=== PATIENT | female | born 1960 | race African-American/Black ===

== ENCOUNTER 2018-02-21 01:57 | Inpatient (IN) | END 2018-03-04 16:24 | DRG 291 ==

== ENCOUNTER 2018-03-30 18:57 | Inpatient (IN) | END 2018-04-05 16:50 | DRG 682 ==

== ENCOUNTER 2018-10-06 18:33 | Inpatient (IN) | payer OTHER ==
[~2018-10-06] VITALS: Ht 170.2 cm; Wt 168.1 kg
[~2018-10-06 18:33] MED LIST: non IM
[2018-10-06 19:04] VITALS: PULSE 74
[2018-10-06 19:46] VITALS: BP 124/69; PULSE 80; RESP 17
[2018-10-06 20:00] VITALS: PULSE 78
[2018-10-06 20:03] VITALS: Ht 170.2 cm; Wt 168.1 kg
[2018-10-06] MEDS ORDERED: MULTI PO (21:13)
[2018-10-06] MEDS ORDERED: ASPI-903 PO (21:13)
[2018-10-06] MEDS ORDERED: METO-448 PO (21:13)
[2018-10-06] MEDS ORDERED: ATOR40TA68 PO (21:13)
[2018-10-06] MEDS ORDERED: AMIN30LI PO (21:13)
[2018-10-06] MEDS ORDERED: PANT40TA3 PO (21:13)
[2018-10-06] MEDS ORDERED: POTA8CAP PO (21:13)
[2018-10-06] MEDS ORDERED: COU2 PO (21:13)
[2018-10-06] MEDS ORDERED: FURO40SO PO (21:13)
[2018-10-06] MEDS ORDERED: PARO40TA79 PO (21:28)
[2018-10-06] MEDS ORDERED: HYDR-4011 PO (21:28)
[2018-10-06] MEDS ORDERED: UDMYL PO (21:28)
[2018-10-06] MEDS ORDERED: ACET-2047 PO (21:28)
[2018-10-06] MEDS ORDERED: NITR0.4T32 SL (21:28)
[2018-10-06] MEDS ORDERED: BISA10SU75 PR (21:28)
[2018-10-06] MEDS ORDERED: RISP1TAB3 PO (21:28)
[2018-10-06] MEDS ORDERED: ONDANSETRON 4 MG INJ IV PRN (22:00)
[2018-10-06] MEDS ORDERED: NITROGLYCERIN (SL) 0.4 MG TAB SL PRN (22:30)
[2018-10-06] MEDS ORDERED: HYDROCODONE/APAP (5/325) TAB PO PRN (22:30)
[2018-10-06] MEDS ORDERED: BISACODYL 10 MG SUPP PR PRN (22:30)
[2018-10-06] MEDS: METOPROLOL 25 MG TAB PO SCH (23:28)
[2018-10-06] MEDS: POTASSIUM CHLORIDE (SR) 10 MEQ TAB PO SCH (23:28)
[2018-10-06] MEDS: RISPERIDONE 1 MG TAB PO SCH (23:28)
[2018-10-06 23:29] VITALS: BP 105/70; PULSE 130; RESP 19
[2018-10-06] MEDS: FUROSEMIDE 40 MG INJ IV SCH (23:29)
[2018-10-07] VITALS (11 sets, daily range): BP systolic 95–108; BP diastolic 50–69; PULSE 81–137; RESP 18–20
[2018-10-07] MEDS ORDERED: PANTOPRAZOLE 40 MG INJ IV SCH (06:00)
[2018-10-07] MEDS: FUROSEMIDE 40 MG INJ IV SCH ×2 (09:02→17:50)
[2018-10-07] MEDS: METOPROLOL 25 MG TAB PO SCH ×2 (09:03→21:00)
[2018-10-07] MEDS: MULTIVITAMINS THERAPEUTIC TAB PO SCH (09:03)
[2018-10-07] MEDS: RISPERIDONE 1 MG TAB PO SCH ×2 (09:03→21:22)
[2018-10-07] MEDS: ASPIRIN 81 MG TAB PO SCH (09:03)
[2018-10-07] MEDS: POTASSIUM CHLORIDE (SR) 10 MEQ TAB PO SCH ×2 (09:03→21:22)
[2018-10-07] MEDS: NICOTINE (21 MG/24 HR) PATCH TRANSDERM SCH (09:04)
--- NOTE | 2018-10-07 15:33 | HP ---
Date/Time of Note Date/Time of Note DATE: 10/07/18 TIME: 15:33 Assessment/Plan VTE Prophylaxis Risk score (from [facility] [place]0 risk: 6 SCD applied (from [facility] [place]): No SCD contraindicated: DVT Pharmacological prophylaxis: warfarin tx Lines/Catheters IV Catheter Type (from [facility]): [place] Urinary Cath still in place: Yes Reason Cath still needed: urinary retention Assessment/Plan Hospital Course 1. UTI with CKD, creatinine was 2,March , now 1.26 2. CHF, diastolic. 3. Possible left lower extremity DVT, incomplete data 4. History of paroxysmal atrial fibrillation, on Coumadin. 5. History of hypertension; however, currently borderline normotensive. 6. History of urinary incontinence, has song catheter now. 7. Chronic obstructive pulmonary disease. 8. Hyperlipidemia. 9. Morbid obesity. 10. Gastroesophageal reflux disease. 11. Hx of schizoaffective disorder. 12. Hyponatremia 13. Hx of polysubstance abuse 14. Thrombocytopenia 15. hx of cholecystectomy. Assessment/Plan 1. admitted to telemetry unit. 2. diuresis 3. airbed. 4. Gastrointestinal prophylaxis Protonix and deep venous thrombosis prophylaxis with Coumadin 2 mg po daily. 5. Fall precaution - Dr Churchill, cardiology - lower extremities -Dr Sousa pulmonology. Result Diagram: 10/07/18 0642 10/07/18 0642 Results 24hrs Laboratory Tests Test 10/07/18 06:42 10/07/18 07:25 White Blood Count 6.1 # Red Blood Count 4.55 # Hemoglobin 11.7 #L Hematocrit 37.4 # Mean Corpuscular Volume 82.2 Mean Corpuscular Hemoglobin 25.7 L Mean Corpuscular Hemoglobin Concent 31.3 L Red Cell Distribution Width 16.0 H Platelet Count 123 L Mean Platelet Volume 9.0 Immature Granulocytes % 0.300 Neutrophils % 56.2 Lymphocytes % 24.1 Monocytes % 18.1 H Eosinophils % 0.8 Basophils % 0.5 Nucleated Red Blood Cells % 1.8 H Immature Granulocytes # 0.020 Neutrophils # 3.5 Lymphocytes # 1.5 Monocytes # 1.1 H Eosinophils # 0.1 Basophils # 0.0 Nucleated Red Blood Cells # 0.1 H Prothrombin Time 20.7 H Prothrombin Time Ratio 1.6 INR International Normalized Ratio 1.77 Sodium Level 139 Potassium Level 4.2 Chloride Level 97 Carbon Dioxide Level 33 H Anion Gap 9 Blood Urea Nitrogen 38 H Creatinine 1.26 H Est Glomerular Filtrat Rate mL/min 53 L Glucose Level 98 Calcium Level 9.7 Total Bilirubin 0.4 Direct Bilirubin 0.00 Indirect Bilirubin 0.4 Aspartate Amino Transf (AST/SGOT) 28 Alanine Aminotransferase (ALT/SGPT) 15 Alkaline Phosphatase 125 H Total Protein 7.8 Albumin 3.7 Globulin 4.10 H Albumin/Globulin Ratio 0.90 Urine Color YELLOW Urine Clarity CLEAR Urine pH 6.0 Urine Specific [place] 1.009 Urine Ketones NEGATIVE Urine Nitrite NEGATIVE Urine Bilirubin NEGATIVE Urine Urobilinogen NEGATIVE Urine Leukocyte Esterase 1+ H Urine Microscopic RBC 36 H Urine Microscopic WBC 6 H Urine Hemoglobin 2+ H Urine Glucose NEGATIVE Urine Total Protein NEGATIVE HPI/ROS Admit Date/Time Admit Date/Time Oct 06, 2018 at 18:33 Hx of Present Illness This is a 57-year-old, morbidly obese woman with a past medical history of hypertension, hyperlipidemia, history of CHF, history of chronic atrial fibrillation, depression, schizoaffective disorder, COPD, history of UTI, primary pulmonary hypertension, right-sided heart failure, was sent in from [facility] for CHF exacerbation after the patient was having worsening lower extremities edema and leg pain, L> R. According to the patient, she has pain 4/10 right know and this pain is chronic. During her stay in [facility] she was in ICU department for hemodynamic monitoring of diuresis and was d/c narcotics. She was in mixed hypercapnic and hypoxic respiratory failure, sometimes was on BIPAP. She was found UTI and was on Bactrim BID. Her swelling on the legs has been getting worse and eventually progressing to the abdomen, LE Doppler showed possible DVT (unable to find a data), D dimers are elevated. Pt is on Coumadin 2 mg po daily. Medical chart from [facility] reviewed, she was there for 3 days. ROS Musculoskeletal: bone/joint pain PMH/Family/Social Past Medical History Medical History: congestive heart failure, hypertension Medications Current Medications Nicotine (Nicoderm 21 Mg/ 24hr) 1 patch DAILY TRANSDERM Last administered on 10/07/18at 09:04; Admin Dose 1 PATCH; Start 10/07/18 at 09:00 Ondansetron HCl (Zofran Inj) 4 mg Q6H PRN IV NAUSEA AND/OR VOMITING; Start 10/06/18 at 22:00 Pantoprazole (Protonix Iv) 40 mg DAILY@06 IV Last administered on 10/07/18at 05:56; Admin Dose 40 MG; Start 10/07/18 at 06:00 Acetaminophen (Tylenol Tab) 650 mg Q6H PRN PO MILD PAIN(1-3)OR ELEVATED TEMP; Start 10/06/18 at 22:00 Furosemide (Lasix) 40 mg DAILY IV Last administered on 10/07/18at 09:02; Admin Dose 40 MG; Start 10/06/18 at 22:30 Aspirin (Aspirin) 81 mg DAILY PO Last administered on 10/07/18 09:03; Admin Dose 81 MG; Start 10/07/18 at 09:00 Atorvastatin Calcium (Lipitor) 40 mg QHS PO ; Start 10/07/18 at 21:00 Bisacodyl (Dulcolax Supp) 10 mg DAILY PRN DC CONSTIPATION; Start 10/06/18 at 22:30 Al Hydrox/Mg Hydrox/Simethicone (Mag-Al Plus) 20 ml Q6H PRN PO GASTROINTESTINAL UPSET; Start 10/06/18 at 22:30 Metoprolol Tartrate (Lopressor) 25 mg BID PO Last administered on 10/07/18at 09:03; Admin Dose 25 MG; Start 10/06/18 at 22:30 Multivitamins Therapeutic (Theragran) 1 tab DAILY PO Last administered on 10/07/18at 09:03; Admin Dose 1 TAB; Start 10/07/18 at 09:00 Paroxetine HCl (Paxil) 40 mg HS PO ; Start 10/07/18 at 21:00 Potassium Chloride (Klor-Con 10) 10 meq BID PO Last administered on 10/07/18at 09:03; Admin Dose 10 MEQ; Start 10/06/18 at 22:30 Risperidone (Risperdal) 1 mg BID PO Last administered on 10/07/18 09:03; Admin Dose 1 MG; Start 10/06/18 at 22:30 Warfarin Sodium (Coumadin) 2 mg DAILY@1700 PO ; Start 10/07/18 at 17:00 Acetaminophen/ Hydrocodone Bitart ([place] (5/325)) 1 tab BID PRN PO MODERATE PAIN LEVEL 4-6; Start 10/06/18 at 22:30 Nitroglycerin (Nitroglycerin (Sl Tab) 0.4 Mg) 1 tab Q5M PRN SL ANGINA; Start 10/06/18 at 22:30 Coded Allergies: cefazolin (Verified Allergy, Unknown, 10/07/18) ceftriaxone (Verified Allergy, Unknown, 02/20/18) Past Surgical History Past Surgical Hx: cholecystectomy, other (right ankle ORIF, C section) Family History Significant Family History: no pertinent family hx Social History Alcohol Use: none Smoking Status: Current every day smoker Drug Use: none Exam/Review of Systems Vital Signs Vitals Vital Signs Date Temp Pulse Resp B/P (MAP) Pulse Ox O2 O2 Flow FiO2 Time Delivery Rate 10/07/18 98.5 83 19 105/57 96 15:27 (73) 10/07/18 Nasal 3.0 08:00 Cannula Intake and Output 10/06/18 10/06/18 10/07/18 1515:00 23:00 07:00 IntakeIntake Total 700 ml OutputOutput Total 2150 ml BalanceBalance -1450 ml Exam Constitutional: alert, oriented Neck: supple Respiratory: clear to auscultation Cardiovascular: regular rate and rhythm Extremities: edema (left more than right) ARABELLA CABELLO Oct 07, 2018 15:33
[2018-10-07] MEDS: SILDENAFIL 20 MG TAB PO SCH (16:45)
[2018-10-07] MEDS: WARFARIN 2 MG TAB PO SCH (16:45)
[2018-10-07] MEDS: HYDROCODONE/APAP (5/325) TAB PO PRN (16:47)
--- NOTE | 2018-10-07 19:54 | CONS ---
Assessment/Plan Assessment/Plan Assessment/Plan (Daily) 57 yr old with history of CTEPH and resultant right heart failure, AF on Coumadin, presumed COPD, history of polysubstance abuse, and morbid obesity brought in from SNF for bilateral leg pain x 1 month, now transferred from [facility] for remainder of care. 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 Acute decompensated heart failure with volume overload 3. LUMA likely 2/2 above--improced 4. History of JEANNINE not on PAP therapy 5. Afib RECS: -Agree with continued diuresis with IV Lasix to achieve net negative 1-1.5 L overnight -Would consider pursuing RHC to evaluate PA pressures and to obtain other prognostic parameters such as CI/PVR -For now would continue BIPAP 15/8 qhs. -Smoking cessation counseling -Would initiate riogicoat for treatment of CTEPH after RHC. Consultation Date/Type/Reason Admit Date/Time Oct 06, 2018 at 18:33 Date of Consultation: Oct 07, 2018 Type of Consult Pulmonary Reason for Consultation Management of RHF Date/Time of Note DATE: 10/07/18 TIME: 19:46 Hx of Present Illness In brief this is a 57-year-old female well known to me from [facility] with history of CTEPH and resultant right heart failure, AF on Coumadin, presumed COPD, history of polysubstance abuse, and morbid obesity brought in from SNF for bilateral leg pain x 1 month. She does not use inhalers and is currently still smoking. She notes increase in cough (with pink sputum), weight gain, SOB, and possible fevers with sick contacts. Upon arrival to the ER patient AF BP 97/66, she was hypoxic/somnolent with CO2 retention on VBG and was placed on 8 LPM face mask and given a total of 60 mg IV lasix with minimal urine outpt (and rise in Cr) and is currently falling asleep during our interview. She had imaging with CXR showing cardiomegaly and increased with congestion with LE dopplers showing possible DVT. In terms of her CTEPH, she had TTE in 08/2017 showing PASP 113 mmHg and has not been on PH specific therapy. She has had multiple hospitalizations for similar reasons, but she is transferred out prior to completing workup or undergoing RHC/etc. Given severity of PH with concomitant renal failure and low UOP/BP, she was transferred to the ICU for aggressive optimization with Lasix and close monitoring with BIPAP support for suspected decompensated RHF. She was diuresed with lasix and is currently on the floor. Patient feels improved in terms of her respiratory status and LE swelling but feels that she still has a lot of swelli ng when compared to baseline. She was transferred to [facility] for further care. Constitutional: no complaints Eyes: no complaints ENT: no complaints Respiratory: shortness of breath Cardiovascular: orthopenea Gastrointestinal: no complaints Genitourinary: no complaints Musculoskeletal: restricted range of motion Skin: no complaints Neurologic: no complaints Endocrine: no complaints Lymphatic: no complaints Past Medical History CTEPH Medical History: congestive heart failure, hypertension Home Meds Reported Medications Nitroglycerin* (Nitroglycerin* SL) 0.4 Mg Tab.subl, 0.4 MG SL Q5MIN PRN for CHEST PAIN, BOTTLE 10/06/18 Magaldrate/Simethicone* (Mag-Al Plus Suspension*) 30 Ml Oral.susp, 20 ML PO Q6H PRN for GASTROINTESTINAL UPSET, ML 10/06/18 Bisacodyl* (Bisacodyl*) 10 Mg Supp, 10 MG CO DAILY PRN for CONSTIPATION, SUPP 10/06/18 Acetaminophen* (Acetaminophen*) 650 Mg Tablet, 650 MG PO Q4 PRN for PAIN AND OR ELEVATED TEMP, #30 TAB 10/06/18 Hydrocodone/Acetaminophen ([place] 5-325 Tablet) 1 Each Tablet, 1 EACH PO BID PRN for PAIN, TAB 10/06/18 Risperidone* (Risperidone*) 1 Mg Tablet, 1 MG PO BID, TAB 10/06/18 Paroxetine Hcl* (Paroxetine*) 40 Mg Tablet, 40 MG PO HS, TAB 10/06/18 Pantoprazole* (Protonix*) 40 Mg Tablet.dr, 40 MG PO DAILY, TAB 10/06/18 Amino Acids/Protein Hydrolys (PRO-STAT LIQUID) 30 Ml Liquid.pkt, 30 ML PO 10/06/18 Metoprolol Tartrate* (Lopressor*) 25 Mg Tab, 25 MG PO BID, #60 TAB 10/06/18 Multivitamins* (Theragran*) 1 Tab Tab, 1 TAB PO DAILY, TAB 10/06/18 Furosemide* (Furosemide*) 40 Mg/5 Ml Solution, 60 MG PO BID, #150 ML 10/06/18 Potassium Chloride* (Potassium Chloride*) 8 Meq Capsule.er, 10 MEQ PO BID, CAP 10/06/18 Warfarin Sod (Coumadin) 2 Mg Tab, 2 MG PO DAILY, TAB 10/06/18 Aspirin* (Aspirin* Chew) 81 Mg Tab.chew, 81 MG PO DAILY, TAB.CHEW 10/06/18 Atorvastatin* (Atorvastatin*) 40 Mg Tablet, 40 MG PO QHS, #30 TAB 10/06/18 [non] No Conflict Check, 200 MG IM Q 2 WEEKS 04/01/18 Medications Current Medications Nicotine (Nicoderm 21 Mg/ 24hr) 1 patch DAILY TRANSDERM Last administered on 10/07/18at 09:04; Admin Dose 1 PATCH; Start 10/07/18 at 09:00 Ondansetron HCl (Zofran Inj) 4 mg Q6H PRN IV NAUSEA AND/OR VOMITING; Start 10/06/18 at 22:00 Acetaminophen (Tylenol Tab) 650 mg Q6H PRN PO MILD PAIN(1-3)OR ELEVATED TEMP; Start 10/06/18 at 22:00 Aspirin (Aspirin) 81 mg DAILY PO Last administered on 10/07/18at 09:03; Admin Dose 81 MG; Start 10/07/18 at 09:00 Atorvastatin Calcium (Lipitor) 40 mg QHS PO ; Start 10/07/18 at 21:00 Bisacodyl (Dulcolax Supp) 10 mg DAILY PRN CO CONSTIPATION; Start 10/06/18 at 22:30 Al Hydrox/Mg Hydrox/Simethicone (Mag-Al Plus) 20 ml Q6H PRN PO GASTROINTESTINAL UPSET; Start 10/06/18 at 22:30 Metoprolol Tartrate (Lopressor) 25 mg BID PO Last administered on 10/07/18at 09:03; Admin Dose 25 MG; Start 10/06/18 at 22:30 Multivitamins Therapeutic (Theragran) 1 tab DAILY PO Last administered on 10/07/18at 09:03; Admin Dose 1 TAB; Start 10/07/18 at 09:00 Paroxetine HCl (Paxil) 40 mg HS PO ; Start 10/07/18 at 21:00 Potassium Chloride (Klor-Con 10) 10 meq BID PO Last administered on 10/07/18 09:03; Admin Dose 10 MEQ; Start 10/06/18 at 22:30 Risperidone (Risperdal) 1 mg BID PO Last administered on 10/07/18 09:03; Admin Dose 1 MG; Start 10/06/18 at 22:30 Warfarin Sodium (Coumadin) 2 mg DAILY@1700 PO Last administered on 10/07/18 16:45; Admin Dose 2 MG; Start 10/07/18 at 17:00 Nitroglycerin (Nitroglycerin (Sl Tab) 0.4 Mg) 1 tab Q5M PRN SL ANGINA; Start 10/06/18 at 22:30 Acetaminophen/ Hydrocodone Bitart ([place] (5/325)) 1 tab Q6H PRN PO MODERATE PAIN LEVEL 4-6 Last administered on 10/07/18 16:47; Admin Dose 1 TAB; Start 10/07/18 at 16:30 Pantoprazole (Protonix Tab) 40 mg DAILY@06 PO ; Start 10/08/18 at 06:00 Furosemide (Lasix) 40 mg BID DIURETICS IV Last administered on 10/07/18 17:50; Admin Dose 40 MG; Start 10/07/18 at 18:00 Sildenafil Citrate (Revatio) 20 mg DAILY PO Last administered on 10/07/18 16:45; Admin Dose 20 MG; Start 10/07/18 at 17:00 Allergies: Coded Allergies: cefazolin (Verified Allergy, Unknown, 10/07/18) ceftriaxone (Verified Allergy, Unknown, 02/20/18) Past Surgical History Past Surgical Hx: cholecystectomy, other (right ankle ORIF, C section) Social History Alcohol Use: none Smoking Status: Current every day smoker Drug Use: none Exam/Review of Systems Exam Vitals Vital Signs Date Temp Pulse Resp B/P (MAP) Pulse Ox O2 O2 Flow FiO2 Time Delivery Rate 10/07/18 3.0 17:45 10/07/18 81 16:11 10/07/18 98.5 19 105/57 96 15:27 (73) 10/07/18 Nasal 08:00 Cannula Intake and Output 10/06/18 10/06/18 10/07/18 1515:00 23:00 07:00 IntakeIntake Total 700 ml OutputOutput Total 2150 ml BalanceBalance -1450 ml Exam GEN: A&O X 3, NAD HEENT: MMM, no LAD CV: distant heart sounds noted; irreg irreg, increased P2 Resp: distant breath sounds noted Abd: Soft NTND, no HSM Ext: +pitting edema in the bilateral lower extremities Neuro: grossly nonfocal Results Result Diagram: 10/07/18 0642 10/07/18 0642 Results 24hrs Laboratory Tests Test 10/07/18 06:42 10/07/18 07:25 White Blood Count 6.1 # Red Blood Count 4.55 # Hemoglobin 11.7 #L Hematocrit 37.4 # Mean Corpuscular Volume 82.2 Mean Corpuscular Hemoglobin 25.7 L Mean Corpuscular Hemoglobin Concent 31.3 L Red Cell Distribution Width 16.0 H Platelet Count 123 L Mean Platelet Volume 9.0 Immature Granulocytes % 0.300 Neutrophils % 56.2 Lymphocytes % 24.1 Monocytes % 18.1 H Eosinophils % 0.8 Basophils % 0.5 Nucleated Red Blood Cells % 1.8 H Immature Granulocytes # 0.020 Neutrophils # 3.5 Lymphocytes # 1.5 Monocytes # 1.1 H Eosinophils # 0.1 Basophils # 0.0 Nucleated Red Blood Cells # 0.1 H Prothrombin Time 20.7 H Prothrombin Time Ratio 1.6 INR International Normalized Ratio 1.77 Sodium Level 139 Potassium Level 4.2 Chloride Level 97 Carbon Dioxide Level 33 H Anion Gap 9 Blood Urea Nitrogen 38 H Creatinine 1.26 H Est Glomerular Filtrat Rate mL/min 53 L Glucose Level 98 Calcium Level 9.7 Total Bilirubin 0.4 Direct Bilirubin 0.00 Indirect Bilirubin 0.4 Aspartate Amino Transf (AST/SGOT) 28 Alanine Aminotransferase (ALT/SGPT) 15 Alkaline Phosphatase 125 H Total Protein 7.8 Albumin 3.7 Globulin 4.10 H Albumin/Globulin Ratio 0.90 Urine Color YELLOW Urine Clarity CLEAR Urine pH 6.0 Urine Specific [place] 1.009 Urine Ketones NEGATIVE Urine Nitrite NEGATIVE Urine Bilirubin NEGATIVE Urine Urobilinogen NEGATIVE Urine Leukocyte Esterase 1+ H Urine Microscopic RBC 36 H Urine Microscopic WBC 6 H Urine Hemoglobin 2+ H Urine Glucose NEGATIVE Urine Total Protein NEGATIVE Medications Medication Current Medications Nicotine (Nicoderm 21 Mg/ 24hr) 1 patch DAILY TRANSDERM Last administered on 10/07/18at 09:04; Admin Dose 1 PATCH; Start 10/07/18 at 09:00 Ondansetron HCl (Zofran Inj) 4 mg Q6H PRN IV NAUSEA AND/OR VOMITING; Start 10/06/18 at 22:00 Acetaminophen (Tylenol Tab) 650 mg Q6H PRN PO MILD PAIN(1-3)OR ELEVATED TEMP; Start 10/06/18 at 22:00 Aspirin (Aspirin) 81 mg DAILY PO Last administered on 10/07/18 09:03; Admin Dose 81 MG; Start 10/07/18 at 09:00 Atorvastatin Calcium (Lipitor) 40 mg QHS PO ; Start 10/07/18 at 21:00 Bisacodyl (Dulcolax Supp) 10 mg DAILY PRN CO CONSTIPATION; Start 10/06/18 at 22:30 Al Hydrox/Mg Hydrox/Simethicone (Mag-Al Plus) 20 ml Q6H PRN PO GASTROINTESTINAL UPSET; Start 10/06/18 at 22:30 Metoprolol Tartrate (Lopressor) 25 mg BID PO Last administered on 10/07/18 09:03; Admin Dose 25 MG; Start 10/06/18 at 22:30 Multivitamins Therapeutic (Theragran) 1 tab DAILY PO Last administered on 10/07/18 09:03; Admin Dose 1 TAB; Start 10/07/18 at 09:00 Paroxetine HCl (Paxil) 40 mg HS PO ; Start 10/07/18 at 21:00 Potassium Chloride (Klor-Con 10) 10 meq BID PO Last administered on 10/07/18 09:03; Admin Dose 10 MEQ; Start 10/06/18 at 22:30 Risperidone (Risperdal) 1 mg BID PO Last administered on 10/07/18 09:03; Admin Dose 1 MG; Start 10/06/18 at 22:30 Warfarin Sodium (Coumadin) 2 mg DAILY@1700 PO Last administered on 10/07/18 16:45; Admin Dose 2 MG; Start 10/07/18 at 17:00 Nitroglycerin (Nitroglycerin (Sl Tab) 0.4 Mg) 1 tab Q5M PRN SL ANGINA; Start 10/06/18 at 22:30 Acetaminophen/ Hydrocodone Bitart ([place] (5/325)) 1 tab Q6H PRN PO MODERATE P AIN LEVEL 4-6 Last administered on 10/07/18at 16:47; Admin Dose 1 TAB; Start 10/07/18 at 16:30 Pantoprazole (Protonix Tab) 40 mg DAILY@06 PO ; Start 10/08/18 at 06:00 Furosemide (Lasix) 40 mg BID DIURETICS IV Last administered on 10/07/18at 17:50; Admin Dose 40 MG; Start 10/07/18 at 18:00 Sildenafil Citrate (Revatio) 20 mg DAILY PO Last administered on 10/07/18at 16:45; Admin Dose 20 MG; Start 10/07/18 at 17:00 ELIAS CHAVIS MD Oct 07, 2018 19:54
[2018-10-07] MEDS: PAROXETINE 20 MG TAB PO SCH (21:22)
[2018-10-07] MEDS: ATORVASTATIN 40 MG TAB PO SCH (21:22)
[2018-10-08] VITALS (11 sets, daily range): BP systolic 97–113; BP diastolic 51–59; PULSE 81–96; RESP 16–20
[2018-10-08] MEDS: FUROSEMIDE 40 MG INJ IV SCH ×2 (05:55→17:34)
[2018-10-08] MEDS: PANTOPRAZOLE (EC) 40 MG TAB PO SCH (05:55)
[2018-10-08] MEDS: HYDROCODONE/APAP (5/325) TAB PO PRN (06:05)
[2018-10-08] MEDS: NICOTINE (21 MG/24 HR) PATCH TRANSDERM SCH (10:08)
[2018-10-08] MEDS: SILDENAFIL 20 MG TAB PO SCH (10:11)
[2018-10-08] MEDS: MULTIVITAMINS THERAPEUTIC TAB PO SCH (10:12)
[2018-10-08] MEDS: METOPROLOL 25 MG TAB PO SCH ×2 (10:12→20:56)
[2018-10-08] MEDS: POTASSIUM CHLORIDE (SR) 10 MEQ TAB PO SCH ×2 (10:12→20:55)
[2018-10-08] MEDS: RISPERIDONE 1 MG TAB PO SCH ×2 (10:12→20:56)
[2018-10-08] MEDS: ASPIRIN 81 MG TAB PO SCH (10:12)
--- NOTE | 2018-10-08 11:16 | PN ---
Date/Time of Note Date/Time of Note DATE: 10/08/18 TIME: 11:15 Assessment/Plan VTE Prophylaxis Risk score (from Ns)>0 risk: 6 SCD applied (from [facility] [place] No SCD contraindicated: DVT Pharmacological prophylaxis: warfarin tx Lines/Catheters IV Catheter Type (from [facility]): [place] Urinary Cath still in place: Yes Reason Cath still needed: urinary retention Assessment/Plan Hospital Course 1. UTI with CKD, creatinine was 2,March , now 1.26 2. CHF, diastolic. 3. Possible left lower extremity DVT, US showed: very limited study. The left leg veins cannot be seen. No gross sonographic evidence for deep venous thrombosis in the right leg. 4. History of paroxysmal atrial fibrillation, on Coumadin, not theraputic. 5. History of hypertension; however, currently borderline normotensive. 6. History of urinary incontinence, has song catheter now. 7. Chronic obstructive pulmonary disease. 8. Hyperlipidemia. 9. Morbid obesity. 10. Gastroesophageal reflux disease. 11. Hx of schizoaffective disorder. 12. Hyponatremia 13. Hx of polysubstance abuse 14. Thrombocytopenia 15. hx of cholecystectomy. Assessment/Plan - telemetry unit. -coumadin 5 mg po one today -artificial tears for eyes -c/w same diuresis -. airbed. -. Gastrointestinal prophylaxis Protonix and deep venous thrombosis prophylaxis with Coumadin 2 mg po daily. - Fall precaution - Dr Churchill, cardiology -US lower extremities done, " Very limited study. The left leg veins cannot be seen. No gross sonographic evidence for deep venous thrombosis in the right leg." -Dr Sousa pulmonology is appreciated. Result Diagram: 10/08/18 0545 10/08/18 0545 Results 24hrs Laboratory Tests Test 10/08/18 05:45 10/08/18 06:00 White Blood Count 5.2 Red Blood Count 4.60 Hemoglobin 11.8 L Hematocrit 37.3 Mean Corpuscular Volume 81.1 L Mean Corpuscular Hemoglobin 25.7 L Mean Corpuscular Hemoglobin Concent 31.6 L Red Cell Distribution Width 15.9 H Platelet Count 128 L Mean Platelet Volume 9.8 Immature Granulocytes % 0.400 Neutrophils % 49.1 Lymphocytes % 25.7 Monocytes % 21.1 H Eosinophils % 3.1 Basophils % 0.6 Nucleated Red Blood Cells % 0.4 H Immature Granulocytes # 0.020 Neutrophils # 2.6 Lymphocytes # 1.3 Monocytes # 1.1 H Eosinophils # 0.2 Basophils # 0.0 Nucleated Red Blood Cells # 0.0 Prothrombin Time 19.5 H Prothrombin Time Ratio 1.5 INR International Normalized Ratio 1.64 Sodium Level 138 Potassium Level 4.0 Chloride Level 96 L Carbon Dioxide Level 34 H Anion Gap 8 Blood Urea Nitrogen 37 H Creatinine 1.19 H Est Glomerular Filtrat Rate mL/min 56 L Glucose Level 86 Calcium Level 9.5 B-Type Natriuretic Peptide 1610 H Blood Gas Specimen Source Blood arterial Arterial Blood Date Drawn 10/08/2018 6:00:32 AM Arterial Blood pH (Temp corrected) 7.470 H Arterial Blood pCO2 (Temp correct) 48.2 H Arterial Blood pO2 (Temp corrected) 44.3 *L Arterial Blood HCO3 35.3 H Arterial Blood Base Excess 9.1 H Arterial Blood Oxygen Saturation 87.8 L Irch Test N/A Arterial Blood Gas Puncture Site Right Radial Arterial Blood Carboxyhemoglobin 0.9 Arterial Blood Methemoglobin 0.1 Blood Gas A-a O2 Differential 93.1 H Oxyhemoglobin Percent 86.9 L Blood Gas Temperature 34.0 Blood Gas Actual Respiration Rate 20 Blood Gas Modality NASAL CANNULA FiO2 27.0 Blood Gas Critical Value Read Back Rayna COONEY Blood Gas Notified Whom [facility] Blood Gas Notified Time 10/08/2018 6:09:58 AM Subjective 24 Hr Interval Summary ENT: other (eye itchiness 3-4 days) Musculoskeletal: restricted range of motion, swelling (lower extemities) Exam/Review of Systems Exam Vitals Vital Signs Date Temp Pulse Resp B/P (MAP) Pulse Ox O2 O2 Flow FiO2 Time Delivery Rate 10/08/18 95 08:14 10/08/18 98.0 18 98/59 (72) 92 07:46 10/08/18 2.0 05:04 10/08/18 40 00:20 10/07/18 Nasal 20:00 Cannula Intake and Output 10/07/18 10/07/18 10/08/18 1515:00 23:00 07:00 IntakeIntake Total 900 ml 300 ml OutputOutput Total 3100 ml 2500 ml BalanceBalance -2200 ml -2200 ml Constitutional: alert, oriented Head: normocephalic Eyes: nl conjunctiva, nl lids ENMT: nl external ears & nose Respiratory: clear to auscultation Cardiovascular: regular rate and rhythm Extremities: edema Results Results 24hrs Laboratory Tests Test 10/08/18 05:45 10/08/18 06:00 White Blood Count 5.2 Red Blood Count 4.60 Hemoglobin 11.8 L Hematocrit 37.3 Mean Corpuscular Volume 81.1 L Mean Corpuscular Hemoglobin 25.7 L Mean Corpuscular Hemoglobin Concent 31.6 L Red Cell Distribution Width 15.9 H Platelet Count 128 L Mean Platelet Volume 9.8 Immature Granulocytes % 0.400 Neutrophils % 49.1 Lymphocytes % 25.7 Monocytes % 21.1 H Eosinophils % 3.1 Basophils % 0.6 Nucleated Red Blood Cells % 0.4 H Immature Granulocytes # 0.020 Neutrophils # 2.6 Lymphocytes # 1.3 Monocytes # 1.1 H Eosinophils # 0.2 Basophils # 0.0 Nucleated Red Blood Cells # 0.0 Prothrombin Time 19.5 H Prothrombin Time Ratio 1.5 INR International Normalized Ratio 1.64 Sodium Level 138 Potassium Level 4.0 Chloride Level 96 L Carbon Dioxide Level 34 H Anion Gap 8 Blood Urea Nitrogen 37 H Creatinine 1.19 H Est Glomerular Filtrat Rate mL/min 56 L Glucose Level 86 Calcium Level 9.5 B-Type Natriuretic Peptide 1610 H Blood Gas Specimen Source Blood arterial Arterial Blood Date Drawn 10/08/2018 6:00:32 AM Arterial Blood pH (Temp corrected) 7.470 H Arterial Blood pCO2 (Temp correct) 48.2 H Arterial Blood pO2 (Temp corrected) 44.3 *L Arterial Blood HCO3 35.3 H Arterial Blood Base Excess 9.1 H Arterial Blood Oxygen Saturation 87.8 L Rich Test N/A Arterial Blood Gas Puncture Site Right Radial Arterial Blood Carboxyhemoglobin 0.9 Arterial Blood Methemoglobin 0.1 Blood Gas A-a O2 Differential 93.1 H Oxyhemoglobin Percent 86.9 L Blood Gas Temperature 34.0 Blood Gas Actual Respiration Rate 20 Blood Gas Modality NASAL CANNULA FiO2 27.0 Blood Gas Critical Value Read Back Rayna COONEY Blood Gas Notified Whom [facility] Blood Gas Notified Time 10/08/2018 6:09:58 AM Medications Medication Current Medications Nicotine (Nicoderm 21 Mg/ 24hr) 1 patch DAILY TRANSDERM Last administered on 10/08/18at 10:08; Admin Dose 1 PATCH; Start 10/07/18 at 09:00 Ondansetron HCl (Zofran Inj) 4 mg Q6H PRN IV NAUSEA AND/OR VOMITING; Start 10/06/18 at 22:00 Acetaminophen (Tylenol Tab) 650 mg Q6H PRN PO MILD PAIN(1-3)OR ELEVATED TEMP; Start 10/06/18 at 22:00 Aspirin (Aspirin) 81 mg DAILY PO Last administered on 10/08/18 10:12; Admin Dose 81 MG; Start 10/07/18 at 09:00 Atorvastatin Calcium (Lipitor) 40 mg QHS PO Last administered on 10/07/18 21:22; Admin Dose 40 MG; Start 10/07/18 at 21:00 Bisacodyl (Dulcolax Supp) 10 mg DAILY PRN [place] CONSTIPATION; Start 10/06/18 at 22:30 Al Hydrox/Mg Hydrox/Simethicone (Mag-Al Plus) 20 ml Q6H PRN PO GASTROINTESTINAL UPSET; Start 10/06/18 at 22:30 Metoprolol Tartrate (Lopressor) 25 mg BID PO Last administered on 10/08/18 10:12; Admin Dose 25 MG; Start 10/06/18 at 22:30 Multivitamins Therapeutic (Theragran) 1 tab DAILY PO Last administered on 10/08/18 10:12; Admin Dose 1 TAB; Start 10/07/18 at 09:00 Paroxetine HCl (Paxil) 40 mg HS PO Last administered on 10/07/18 21:22; Admin Dose 40 MG; Start 10/07/18 at 21:00 Potassium Chloride (Klor-Con 10) 10 meq BID PO Last administered on 10/08/18 10:12; Admin Dose 10 MEQ; Start 10/06/18 at 22:30 Risperidone (Risperdal) 1 mg BID PO Last administered on 10/08/18 10:12; Admin Dose 1 MG; Start 10/06/18 at 22:30 Warfarin Sodium (Coumadin) 2 mg DAILY@1700 PO Last administered on 10/07/18 16:45; Admin Dose 2 MG; Start 10/07/18 at 17:00 Nitroglycerin (Nitroglycerin (Sl Tab) 0.4 Mg) 1 tab Q5M PRN SL ANGINA; Start 10/06/18 at 22:30 Acetaminophen/ Hydrocodone Bitart ([place] (5/325)) 1 tab Q6H PRN PO MODERATE PAIN LEVEL 4-6 Last administered on 10/08/18at 06:05; Admin Dose 1 TAB; Start 10/07/18 at 16:30 Pantoprazole (Protonix Tab) 40 mg DAILY@06 PO Last administered on 10/08/18at 05:55; Admin Dose 40 MG; Start 10/08/18 at 06:00 Furosemide (Lasix) 40 mg BID DIURETICS IV Last administered on 10/08/18at 05:55; Admin Dose 40 MG; Start 10/07/18 at 18:00 Sildenafil Citrate (Revatio) 20 mg DAILY PO Last administered on 10/08/18at 10:11; Admin Dose 20 MG; Start 10/07/18 at 17:00 ARABELLA CABELLO Oct 08, 2018 11:16
[2018-10-08] MEDS ORDERED: WARFARIN 5 MG TAB PO ONE (11:30)
[2018-10-08] MEDS ORDERED: METOPROLOL 5 MG INJ IV SCH (12:00)
[2018-10-08] MEDS ORDERED: METOPROLOL 5 MG INJ IV PRN ×2 (12:00)
--- NOTE | 2018-10-08 13:31 | CONS ---
Consult Date/Type/Reason Admit Date/Time Oct 06, 2018 at 18:33 Initial Consult Date 10/07/18 Type of Consultation: Pulm Date/Time of Note DATE: 10/08/18 TIME: 13:27 Subjective No events. Doing reasonably well though sleepy at time of my visit. Objective Vitals Vital Signs Date Temp Pulse Resp B/P (MAP) Pulse Ox O2 O2 Flow FiO2 Time Delivery Rate 10/08/18 85 12:32 10/08/18 98.7 20 98/55 (69) 91 11:57 10/08/18 2.0 05:04 10/08/18 40 00:20 10/07/18 Nasal 20:00 Cannula Intake and Output 10/07/18 10/07/18 10/08/18 1515:00 23:00 07:00 IntakeIntake Total 900 ml 300 ml OutputOutput Total 3100 ml 2500 ml BalanceBalance -2200 ml -2200 ml Exam HEENT: Neck supple; no JVD; no LAD CVS: Irreg irreg, S1 and S2; increased P2 CHEST: Clear ABD: Obese, soft, NT, + BS EXT: No c/c; ++ edema Results/Medications Result Diagram: 10/08/1845 10/08/18 0545 Results 24 hrs Laboratory Tests Test 10/08/18 05:45 10/08/18 06:00 White Blood Count 5.2 Red Blood Count 4.60 Hemoglobin 11.8 L Hematocrit 37.3 Mean Corpuscular Volume 81.1 L Mean Corpuscular Hemoglobin 25.7 L Mean Corpuscular Hemoglobin Concent 31.6 L Red Cell Distribution Width 15.9 H Platelet Count 128 L Mean Platelet Volume 9.8 Immature Granulocytes % 0.400 Neutrophils % 49.1 Lymphocytes % 25.7 Monocytes % 21.1 H Eosinophils % 3.1 Basophils % 0.6 Nucleated Red Blood Cells % 0.4 H Immature Granulocytes # 0.020 Neutrophils # 2.6 Lymphocytes # 1.3 Monocytes # 1.1 H Eosinophils # 0.2 Basophils # 0.0 Nucleated Red Blood Cells # 0.0 Prothrombin Time 19.5 H Prothrombin Time Ratio 1.5 INR International Normalized Ratio 1.64 Sodium Level 138 Potassium Level 4.0 Chloride Level 96 L Carbon Dioxide Level 34 H Anion Gap 8 Blood Urea Nitrogen 37 H Creatinine 1.19 H Est Glomerular Filtrat Rate mL/min 56 L Glucose Level 86 Calcium Level 9.5 B-Type Natriuretic Peptide 1610 H Blood Gas Specimen Source Blood arterial Arterial Blood Date Drawn 10/08/2018 6:00:32 AM Arterial Blood pH (Temp corrected) 7.470 H Arterial Blood pCO2 (Temp correct) 48.2 H Arterial Blood pO2 (Temp corrected) 44.3 *L Arterial Blood HCO3 35.3 H Arterial Blood Base Excess 9.1 H Arterial Blood Oxygen Saturation 87.8 L Rich Test N/A Arterial Blood Gas Puncture Site Right Radial Arterial Blood Carboxyhemoglobin 0.9 Arterial Blood Methemoglobin 0.1 Blood Gas A-a O2 Differential 93.1 H Oxyhemoglobin Percent 86.9 L Blood Gas Temperature 34.0 Blood Gas Actual Respiration Rate 20 Blood Gas Modality NASAL CANNULA FiO2 27.0 Blood Gas Critical Value Read Back Rayna COONEY Blood Gas Notified Whom [facility] Blood Gas Notified Time 10/08/2018 6:09:58 AM Home Meds Reported Medications Nitroglycerin* (Nitroglycerin* SL) 0.4 Mg Tab.subl, 0.4 MG SL Q5MIN PRN for CHEST PAIN, BOTTLE 10/06/18 Magaldrate/Simethicone* (Mag-Al Plus Suspension*) 30 Ml Oral.susp, 20 ML PO Q6H PRN for GASTROINTESTINAL UPSET, ML 10/06/18 Bisacodyl* (Bisacodyl*) 10 Mg Supp, 10 MG LA DAILY PRN for CONSTIPATION, SUPP 10/06/18 Acetaminophen* (Acetaminophen*) 650 Mg Tablet, 650 MG PO Q4 PRN for PAIN AND OR ELEVATED TEMP, #30 TAB 10/06/18 Hydrocodone/Acetaminophen ([place] 5-325 Tablet) 1 Each Tablet, 1 EACH PO BID PRN for PAIN, TAB 10/06/18 Risperidone* (Risperidone*) 1 Mg Tablet, 1 MG PO BID, TAB 10/06/18 Paroxetine Hcl* (Paroxetine*) 40 Mg Tablet, 40 MG PO HS, TAB 10/06/18 Pantoprazole* (Protonix*) 40 Mg Tablet.dr, 40 MG PO DAILY, TAB 10/06/18 Amino Acids/Protein Hydrolys (PRO-STAT LIQUID) 30 Ml Liquid.pkt, 30 ML PO 10/06/18 Metoprolol Tartrate* (Lopressor*) 25 Mg Tab, 25 MG PO BID, #60 TAB 10/06/18 Multivitamins* (Theragran*) 1 Tab Tab, 1 TAB PO DAILY, TAB 10/06/18 Furosemide* (Furosemide*) 40 Mg/5 Ml Solution, 60 MG PO BID, #150 ML 10/06/18 Potassium Chloride* (Potassium Chloride*) 8 Meq Capsule.er, 10 MEQ PO BID, CAP 10/06/18 Warfarin Sod (Coumadin) 2 Mg Tab, 2 MG PO DAILY, TAB 10/06/18 Aspirin* (Aspirin* Chew) 81 Mg Tab.chew, 81 MG PO DAILY, TAB.CHEW 10/06/18 Atorvastatin* (Atorvastatin*) 40 Mg Tablet, 40 MG PO QHS, #30 TAB 10/06/18 [non] No Conflict Check, 200 MG IM Q 2 WEEKS 04/01/18 Medications Current Medications Nicotine (Nicoderm 21 Mg/ 24hr) 1 patch DAILY TRANSDERM Last administered on 10/08/18at 10:08; Admin Dose 1 PATCH; Start 10/07/18 at 09:00 Ondansetron HCl (Zofran Inj) 4 mg Q6H PRN IV NAUSEA AND/OR VOMITING; Start 10/06/18 at 22:00 Acetaminophen (Tylenol Tab) 650 mg Q6H PRN PO MILD PAIN(1-3)OR ELEVATED TEMP; Start 10/06/18 at 22:00 Aspirin (Aspirin) 81 mg DAILY PO Last administered on 10/08/18at 10:12; Admin Dose 81 MG; Start 10/07/18 at 09:00 Atorvastatin Calcium (Lipitor) 40 mg QHS PO Last administered on 10/07/18at 21:22; Admin Dose 40 MG; Start 10/07/18 at 21:00 Bisacodyl (Dulcolax Supp) 10 mg DAILY PRN [place] CONSTIPATION; Start 10/06/18 at 22:30 Al Hydrox/Mg Hydrox/Simethicone (Mag-Al Plus) 20 ml Q6H PRN PO GASTROINTESTINAL UPSET; Start 10/06/18 at 22:30 Metoprolol Tartrate (Lopressor) 25 mg BID PO Last administered on 10/08/18at 10:12; Admin Dose 25 MG; Start 10/06/18 at 22:30 Multivitamins Therapeutic (Theragran) 1 tab DAILY PO Last administered on 10/08/18 10:12; Admin Dose 1 TAB; Start 10/07/18 at 09:00 Paroxetine HCl (Paxil) 40 mg HS PO Last administered on 10/07/18 21:22; Admin Dose 40 MG; Start 10/07/18 at 21:00 Potassium Chloride (Klor-Con 10) 10 meq BID PO Last administered on 10/08/18 10:12; Admin Dose 10 MEQ; Start 10/06/18 at 22:30 Risperidone (Risperdal) 1 mg BID PO Last administered on 10/08/18 10:12; Admin Dose 1 MG; Start 10/06/18 at 22:30 Warfarin Sodium (Coumadin) 2 mg DAILY@1700 PO Last administered on 10/07/18 16:45; Admin Dose 2 MG; Start 10/07/18 at 17:00 Nitroglycerin (Nitroglycerin (Sl Tab) 0.4 Mg) 1 tab Q5M PRN SL ANGINA; Start 10/06/18 at 22:30 Acetaminophen/ Hydrocodone Bitart ([place] (5/325)) 1 tab Q6H PRN PO MODERATE PAIN LEVEL 4-6 Last administered on 10/08/18 06:05; Admin Dose 1 TAB; Start 10/07/18 at 16:30 Pantoprazole (Protonix Tab) 40 mg DAILY@06 PO Last administered on 10/08/18 05:55; Admin Dose 40 MG; Start 10/08/18 at 06:00 Furosemide (Lasix) 40 mg BID DIURETICS IV Last administered on 10/08/18 05:55; Admin Dose 40 MG; Start 10/07/18 at 18:00 Sildenafil Citrate (Revatio) 20 mg DAILY PO Last administered on 10/08/18 10:11; Admin Dose 20 MG; Start 10/07/18 at 17:00 Eye Lubricant (Artificial Tears Oph) 2 drop Q6H PRN BOTH EYES DRY EYES; Start 10/08/18 at 13:00 Metoprolol Tartrate (Lopressor) 5 mg Q6 PRN IV HR above 130; Start 10/08/18 at 12:00 Assessment/Plan Assessment/Plan (Daily) IMP: 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 Acute decompensated heart failure with volume overload 3. LUMA likely 2/2 above--improved 4. History of JEANNINE/OHS 5. Afib RECS: -Continue diuresis with IV Lasix to achieve net negative 1 L daily -Would consider pursuing RHC to evaluate PA pressures and to obtain other prognostic parameters such as CI/PVR -For now would continue BIPAP 15/8 qhs. -Smoking cessation counseling -Would initiate riogicoat for treatment of CTEPH after RHC.(if RHC not feasible, would initiate now) ELIAS CHAVIS MD Oct 08, 2018 13:30
--- NOTE | 2018-10-08 15:07 | CONS ---
Assessment/Plan Assessment/Plan Hospital Course (Demo Recall) 57 year-old with morbid obesity and multiple medical problems including chronic thromboembolic pulmonary hypertension, right heart failure with severe elevation of pulmonary pressures, and increasing lower extremity edema. She has paroxysmal afib, but has been noted to have runs of paroxymal SVT. Impression: CTEPH Right heart failure paroxymal afib paroxysmal SVT morbid obesity tobacco abuse Recommendations: Continue diuresis Consider right heart cath to directly measure pulmonary pressures, evaluate cardiac output, PVR. However, right heart cath will be very technically difficult due to the patient's body habitus. Warfarin for CTEPH and afib, would hold prior to any attempt at a right heart cath Urged smoking cessation Consultation Date/Type/Reason Admit Date/Time Oct 06, 2018 at 18:33 Date of Consultation: Oct 08, 2018 Type of Consult Cardiology Reason for Consultation Pulmonary hypertension, heart failure Requesting Provider: DANA LIVINGSTON MD Date/Time of Note DATE: 10/08/18 TIME: 14:53 Hx of Present Illness 57-year-old morbidly obese woman with history of hypertension, right heart failure, paroxysmal atrial fibrillation, schizoaffective disorder, chronic thromboembolic pulmonary hypertension, transferred from [facility], admitted there with worsening lower extremity edema and dyspnea. She was found to have mixed hypercapnic and hypoxic respiratory failure, treated with bipap, also treated for UTI with bactrim. Lower extremity doppler done here was technically difficult, veins of the left leg could not be visualized at all, but right leg demonstrated no DVT. At present she is comfortable, denies leg pain to me. She has had some palpitations, and monitor has demonstrated paroxysmal SVT runs. She smokes, and knows she should quit smoking. Constitutional: no complaints Eyes: no complaints ENT: no complaints Respiratory: shortness of breath Cardiovascular: edema, palpitations; No chest pain Gastrointestinal: no complaints Genitourinary: no complaints Musculoskeletal: swelling, other (leg pain) Skin: no complaints Neurologic: no complaints Endocrine: no complaints Lymphatic: no complaints Psychological: no complaints Immunologic: no complaints Past Medical History Medical History: deep vein thrombosis, high cholesterol, hypertension, hyp othyroid Home Meds Reported Medications Nitroglycerin* (Nitroglycerin* SL) 0.4 Mg Tab.subl, 0.4 MG SL Q5MIN PRN for CHEST PAIN, BOTTLE 10/06/18 Magaldrate/Simethicone* (Mag-Al Plus Suspension*) 30 Ml Oral.susp, 20 ML PO Q6H PRN for GASTROINTESTINAL UPSET, ML 10/06/18 Bisacodyl* (Bisacodyl*) 10 Mg Supp, 10 MG [place] DAILY PRN for CONSTIPATION, SUPP 10/06/18 Acetaminophen* (Acetaminophen*) 650 Mg Tablet, 650 MG PO Q4 PRN for PAIN AND OR ELEVATED TEMP, #30 TAB 10/06/18 Hydrocodone/Acetaminophen ([place] 5-325 Tablet) 1 Each Tablet, 1 EACH PO BID PRN for PAIN, TAB 10/06/18 Risperidone* (Risperidone*) 1 Mg Tablet, 1 MG PO BID, TAB 10/06/18 Paroxetine Hcl* (Paroxetine*) 40 Mg Tablet, 40 MG PO HS, TAB 10/06/18 Pantoprazole* (Protonix*) 40 Mg Tablet.dr, 40 MG PO DAILY, TAB 10/06/18 Amino Acids/Protein Hydrolys (PRO-STAT LIQUID) 30 Ml Liquid.pkt, 30 ML PO 10/06/18 Metoprolol Tartrate* (Lopressor*) 25 Mg Tab, 25 MG PO BID, #60 TAB 10/06/18 Multivitamins* (Theragran*) 1 Tab Tab, 1 TAB PO DAILY, TAB 10/06/18 Furosemide* (Furosemide*) 40 Mg/5 Ml Solution, 60 MG PO BID, #150 ML 10/06/18 Potassium Chloride* (Potassium Chloride*) 8 Meq Capsule.er, 10 MEQ PO BID, CAP 10/06/18 Warfarin Sod (Coumadin) 2 Mg Tab, 2 MG PO DAILY, TAB 10/06/18 Aspirin* (Aspirin* Chew) 81 Mg Tab.chew, 81 MG PO DAILY, TAB.CHEW 10/06/18 Atorvastatin* (Atorvastatin*) 40 Mg Tablet, 40 MG PO QHS, #30 TAB 10/06/18 [non] No Conflict Check, 200 MG IM Q 2 WEEKS 04/01/18 Medications Current Medications Nicotine (Nicoderm 21 Mg/ 24hr) 1 patch DAILY TRANSDERM Last administered on 10/08/18at 10:08; Admin Dose 1 PATCH; Start 10/07/18 at 09:00 Ondansetron HCl (Zofran Inj) 4 mg Q6H PRN IV NAUSEA AND/OR VOMITING; Start 10/06/18 at 22:00 Acetaminophen (Tylenol Tab) 650 mg Q6H PRN PO MILD PAIN(1-3)OR ELEVATED TEMP; Start 10/06/18 at 22:00 Aspirin (Aspirin) 81 mg DAILY PO Last administered on 10/08/18 10:12; Admin Dose 81 MG; Start 10/07/18 at 09:00 Atorvastatin Calcium (Lipitor) 40 mg QHS PO Last administered on 10/07/18 21:22; Admin Dose 40 MG; Start 10/07/18 at 21:00 Bisacodyl (Dulcolax Supp) 10 mg DAILY PRN VA CONSTIPATION; Start 10/06/18 at 22:30 Al Hydrox/Mg Hydrox/Simethicone (Mag-Al Plus) 20 ml Q6H PRN PO GASTROINTESTINAL UPSET; Start 10/06/18 at 22:30 Metoprolol Tartrate (Lopressor) 25 mg BID PO Last administered on 10/08/18 10:12; Admin Dose 25 MG; Start 10/06/18 at 22:30 Multivitamins Therapeutic (Theragran) 1 tab DAILY PO Last administered on 10/08/18 10:12; Admin Dose 1 TAB; Start 10/07/18 at 09:00 Paroxetine HCl (Paxil) 40 mg HS PO Last administered on 10/07/18 21:22; Admin Dose 40 MG; Start 10/07/18 at 21:00 Potassium Chloride (Klor-Con 10) 10 meq BID PO Last administered on 10/08/18 10:12; Admin Dose 10 MEQ; Start 10/06/18 at 22:30 Risperidone (Risperdal) 1 mg BID PO Last administered on 10/08/18 10:12; Admin Dose 1 MG; Start 10/06/18 at 22:30 Warfarin Sodium (Coumadin) 2 mg DAILY@1700 PO Last administered on 10/07/18 16:45; Admin Dose 2 MG; Start 10/07/18 at 17:00 Nitroglycerin (Nitroglycerin (Sl Tab) 0.4 Mg) 1 tab Q5M PRN SL ANGINA; Start 10/06/18 at 22:30 Acetaminophen/ Hydrocodone Bitart ([place] (5/325)) 1 tab Q6H PRN PO MODERATE PAIN LEVEL 4-6 Last administered on 2/10/19at 06:05; Admin Dose 1 TAB; Start 10/07/18 at 16:30 Pantoprazole (Protonix Tab) 40 mg DAILY@06 PO Last administered on 10/08/18at 05:55; Admin Dose 40 MG; Start 10/08/18 at 06:00 Furosemide (Lasix) 40 mg BID DIURETICS IV Last administered on 10/08/18at 05:55; Admin Dose 40 MG; Start 10/07/18 at 18:00 Sildenafil Citrate (Revatio) 20 mg DAILY PO Last administered on 10/08/18at 10:11; Admin Dose 20 MG; Start 10/07/18 at 17:00 Eye Lubricant (Artificial Tears Oph) 2 drop Q6H PRN BOTH EYES DRY EYES; Start 10/08/18 at 13:00 Metoprolol Tartrate (Lopressor) 5 mg Q6 PRN IV HR above 130; Start 10/08/18 at 12:00 Allergies: Coded Allergies: cefazolin (Verified Allergy, Unknown, 10/07/18) ceftriaxone (Verified Allergy, Unknown, 02/20/18) Past Surgical History Past Surgical Hx: cholecystectomy, other (right ankle ORIF, C section) Family History Significant Family History: no pertinent family hx Social History Alcohol Use: none Smoking Status: Current every day smoker Drug Use: none Exam/Review of Systems Vital Signs Vitals Vital Signs Date Temp Pulse Resp B/P (MAP) Pulse Ox O2 O2 Flow FiO2 Time Delivery Rate 10/08/18 85 12:32 10/08/18 98.7 20 98/55 (69) 91 11:57 10/08/18 2.0 05:04 10/08/18 40 00:20 10/07/18 Nasal 20:00 Cannula Intake and Output 10/07/18 10/07/18 10/08/18 1515:00 23:00 07:00 IntakeIntake Total 900 ml 300 ml OutputOutput Total 3100 ml 2500 ml BalanceBalance -2200 ml -2200 ml Exam Constitutional: alert, oriented, other (morbidly obese) Psych: other (flat affect) Head: normocephalic, atraumatic Eyes: nl conjunctiva, EOMI, nl lids, nl sclera ENMT: nl external ears & nose, nl lips & teeth, nl nasal mucosa & septum Neck: supple, other (cannot assess jugular veins); No bruits Respiratory: clear to auscultation, diminished breath sounds Cardiovascular: regular rate and rhythm, edema, systolic murmur (2/6 at lusb); No irregular rhythm, No murmurs/extra sounds Gastrointestinal: soft, non-tender, other (cannot assess for hepatomegaly) Musculoskeletal: swelling Extremities: edema (2+ edema both legs) Neurological: nl mental status, nl speech Skin: No rash or lesions Labs Result Diagram: 10/08/1854410/08/18544 Results 24hrs Laboratory Tests Test 10/08/18 05:45 10/08/18 06:00 White Blood Count 5.2 Red Blood Count 4.60 Hemoglobin 11.8 L Hematocrit 37.3 Mean Corpuscular Volume 81.1 L Mean Corpuscular Hemoglobin 25.7 L Mean Corpuscular Hemoglobin Concent 31.6 L Red Cell Distribution Width 15.9 H Platelet Count 128 L Mean Platelet Volume 9.8 Immature Granulocytes % 0.400 Neutrophils % 49.1 Lymphocytes % 25.7 Monocytes % 21.1 H Eosinophils % 3.1 Basophils % 0.6 Nucleated Red Blood Cells % 0.4 H Immature Granulocytes # 0.020 Neutrophils # 2.6 Lymphocytes # 1.3 Monocytes # 1.1 H Eosinophils # 0.2 Basophils # 0.0 Nucleated Red Blood Cells # 0.0 Prothrombin Time 19.5 H Prothrombin Time Ratio 1.5 INR International Normalized Ratio 1.64 Sodium Level 138 Potassium Level 4.0 Chloride Level 96 L Carbon Dioxide Level 34 H Anion Gap 8 Blood Urea Nitrogen 37 H Creatinine 1.19 H Est Glomerular Filtrat Rate mL/min 56 L Glucose Level 86 Calcium Level 9.5 B-Type Natriuretic Peptide 1610 H Blood Gas Specimen Source Blood arterial Arterial Blood Date Drawn 10/08/2018 6:00:32 AM Arterial Blood pH (Temp corrected) 7.470 H Arterial Blood pCO2 (Temp correct) 48.2 H Arterial Blood pO2 (Temp corrected) 44.3 *L Arterial Blood HCO3 35.3 H Arterial Blood Base Excess 9.1 H Arterial Blood Oxygen Saturation 87.8 L Rich Test N/A Arterial Blood Gas Puncture Site Right Radial Arterial Blood Carboxyhemoglobin 0.9 Arterial Blood Methemoglobin 0.1 Blood Gas A-a O2 Differential 93.1 H Oxyhemoglobin Percent 86.9 L Blood Gas Temperature 34.0 Blood Gas Actual Respiration Rate 20 Blood Gas Modality NASAL CANNULA FiO2 27.0 Blood Gas Critical Value Read Back Rayna COONEY Blood Gas Notified Whom [facility] Blood Gas Notified Time 10/08/2018 6:09:58 AM Imaging Imaging EKG shows NSR at 90 bpm, RVH with tall R waves and right axis deviation, nonspecific ST changes Medications Medications Current Medications Nicotine (Nicoderm 21 Mg/ 24hr) 1 patch DAILY TRANSDERM Last administered on 10/08/18 10:08; Admin Dose 1 PATCH; Start 10/07/18 at 09:00 Ondansetron HCl (Zofran Inj) 4 mg Q6H PRN IV NAUSEA AND/OR VOMITING; Start 10/06/18 at 22:00 Acetaminophen (Tylenol Tab) 650 mg Q6H PRN PO MILD PAIN(1-3)OR ELEVATED TEMP; Start 10/06/18 at 22:00 Aspirin (Aspirin) 81 mg DAILY PO Last administered on 10/08/18 10:12; Admin Dose 81 MG; Start 10/07/18 at 09:00 Atorvastatin Calcium (Lipitor) 40 mg QHS PO Last administered on 10/07/18 21:22; Admin Dose 40 MG; Start 10/07/18 at 21:00 Bisacodyl (Dulcolax Supp) 10 mg DAILY PRN VA CONSTIPATION; Start 10/06/18 at 22:30 Al Hydrox/Mg Hydrox/Simethicone (Mag-Al Plus) 20 ml Q6H PRN PO GASTROINTESTINAL UPSET; Start 10/06/18 at 22:30 Metoprolol Tartrate (Lopressor) 25 mg BID PO Last administered on 10/08/18 10:12; Admin Dose 25 MG; Start 10/06/18 at 22:30 Multivitamins Therapeutic (Theragran) 1 tab DAILY PO Last administered on 10/08/18 10:12; Admin Dose 1 TAB; Start 10/07/18 at 09:00 Paroxetine HCl (Paxil) 40 mg HS PO Last administered on 10/07/18 21:22; Admin Dose 40 MG; Start 10/07/18 at 21:00 Potassium Chloride (Klor-Con 10) 10 meq BID PO Last administered on 10/08/18 10:12; Admin Dose 10 MEQ; Start 10/06/18 at 22:30 Risperidone (Risperdal) 1 mg BID PO Last administered on 10/08/18 10:12; Admin Dose 1 MG; Start 10/06/18 at 22:30 Warfarin Sodium (Coumadin) 2 mg DAILY@1700 PO Last administered on 10/07/18at 16:45; Admin Dose 2 MG; Start 10/07/18 at 17:00 Nitroglycerin (Nitroglycerin (Sl Tab) 0.4 Mg) 1 tab Q5M PRN SL ANGINA; Start 10/06/18 at 22:30 Acetaminophen/ Hydrocodone Bitart ([place] (5/325)) 1 tab Q6H PRN PO MODERATE PAIN LEVEL 4-6 Last administered on 10/08/18 06:05; Admin Dose 1 TAB; Start at 16:30 Pantoprazole (Protonix Tab) 40 mg DAILY@06 PO Last administered on 10/08/18at 05:55; Admin Dose 40 MG; Start 10/08/18 at 06:00 Furosemide (Lasix) 40 mg BID DIURETICS IV Last administered on 10/08/18at 05:55; Admin Dose 40 MG; Start 10/07/18 at 18:00 Sildenafil Citrate (Revatio) 20 mg DAILY PO Last administered on 10/08/18at 10:11; Admin Dose 20 MG; Start 10/07/18 at 17:00 Eye Lubricant (Artificial Tears Oph) 2 drop Q6H PRN BOTH EYES DRY EYES; Start 10/08/18 at 13:00 Metoprolol Tartrate (Lopressor) 5 mg Q6 PRN IV HR above 130; Start 10/08/18 at 12:00 NAZIA TERAN Oct 08, 2018 15:06
[2018-10-08] MEDS: ARTIFICIAL TEARS 15 ML OPH BOTH EYES PRN (15:36)
--- NOTE | 2018-10-08 15:53 | RADRPT ---
Echocardiogram Report Patient Name: ALE SINCLAIRPatient ID: [id number] : 1960 (57y 10m)Study Date: 10/08/2018 8:10:25 AM Gender: FAccession #: [id number] Tech: Mickey Oliveira [facility] Location: [address] Ref.Physician: ASTER LIVINGSTON Height(Cm): BSA: Weight(Kg): Quality: GoodOrder Physician: Aster Livingston Account #: Procedures: Echocardiographic Report: Transthoracic echocardiogram with complete 2D, M-Mode, and doppler examination. Indications: Congestive Heart Failure. Measurements: 2D/M Mode Measurement Value Normal Range LVIDd 2D 2.2 [ 3.8 - 5.2 ] cm LVIDs 2D 1.4 [ 2.2 - 3.5 ] cm IVSd 2D 0.8 [ 0.6 - 0.9 ] cm Findings: Left Ventricle: Normal left ventricular systolic function. Linited echo , TDS due to Patient body habitus, and unbable to turn on side...Adequate LV Function. Normal left ventricular cavity size. Normal left ventricular wall thickness. Ejection fraction is visually estimated at 55-60 %. Right Ventricle: Not well visualized. Left Atrium: Not well visualized. Right Atrium: Not well visualized. Mitral Valve: Mitral valve is not well visualized. Aortic Valve: Aortic valve not well visualized. Tricuspid Valve: Tricuspid valve not well visualized. Pulmonic Valve: Pulmonic valve not well visualized. Pericardium: Not well visualized. Aorta: Not well visualized. IVC: The IVC is not well visualized. Conclusions: Probabale normal LV systolic function on very limited views . TDS due to Patient body habitus, and unbable to turn on side...Adequate LV Function. Grossly Normal left ventricular cavity size. . Ejection fraction is visually estimated at 55-60 %. Electronically Signed By: Elvin Us 2018-10-08 15:53:23 PST
[2018-10-08] MEDS: WARFARIN 2 MG TAB PO SCH (17:34)
[2018-10-08] MEDS: ATORVASTATIN 40 MG TAB PO SCH (20:55)
[2018-10-08] MEDS: PAROXETINE 20 MG TAB PO SCH (20:55)
[2018-10-09] VITALS (12 sets, daily range): BP systolic 75–122; BP diastolic 41–59; PULSE 72–88; RESP 16–20
[2018-10-09] MEDS: ARTIFICIAL TEARS 15 ML OPH BOTH EYES PRN ×2 (02:32→08:42)
[2018-10-09] MEDS: HYDROCODONE/APAP (5/325) TAB PO PRN (02:32)
[2018-10-09] MEDS: FUROSEMIDE 40 MG INJ IV SCH ×2 (06:07→17:41)
[2018-10-09] MEDS: PANTOPRAZOLE (EC) 40 MG TAB PO SCH (06:07)
[2018-10-09] MEDS: ASPIRIN 81 MG TAB PO SCH (08:42)
[2018-10-09] MEDS: RISPERIDONE 1 MG TAB PO SCH ×2 (08:42→20:44)
[2018-10-09] MEDS: POTASSIUM CHLORIDE (SR) 10 MEQ TAB PO SCH ×2 (08:42→20:43)
[2018-10-09] MEDS: MULTIVITAMINS THERAPEUTIC TAB PO SCH (08:42)
[2018-10-09] MEDS: METOPROLOL 25 MG TAB PO SCH ×3 (08:43→20:47)
[2018-10-09] MEDS: NICOTINE (21 MG/24 HR) PATCH TRANSDERM SCH (08:43)
[2018-10-09] MEDS: SILDENAFIL 20 MG TAB PO SCH (08:45)
--- NOTE | 2018-10-09 13:28 | CONS ---
Assessment/Plan Cardiology Heart Failure Type: Acute on Chronic Assessment/Plan Hospital Course (Demo Recall) Acute decompensated congestive heart failure Acute kidney injury Right ventricular systolic dysfunction Severe pulmonary hypertension Paroxysmal atrial flutter, currently sinus rhythm Hypertension Obesity Active tobacco use Psychiatric disorder -Patient with improvement in shortness of breath. Continue diuretics as per nephrology -Patient with known history of pulmonary hypertension. She is volume overloaded at the current time. Echocardiogram performed initially was a poor study, would repeat to reevaluate. -Of significant importance to patient's treatment is medication compliance, smoking cessation and weight loss. This was discussed with the patient in detail Consultation Date/Type/Reason Admit Date/Time Oct 06, 2018 at 18:33 Initial Consult Date 10/08/18 Type of Consult Cardiology Requesting Provider: DANA LIVINGSTON MD Date/Time of Note DATE: 10/09/18 TIME: 13:24 24 HR Interval Summary Free Text/Dictation Shortness of breath is much better. Denies chest pain or palpitations. Exam/Review of Systems Vital Signs Vitals Vital Signs Date Temp Pulse Resp B/P (MAP) Pulse Ox O2 O2 Flow FiO2 Time Delivery Rate 10/09/18 74 103/54 13:20 (70) 10/09/18 98.3 20 91 11:58 10/09/18 Nasal 4.0 08:30 Cannula 10/09/18 40 01:13 Intake and Output 10/08/18 10/08/18 10/09/18 1515:00 23:00 07:00 IntakeIntake Total 1200 ml 250 ml OutputOutput Total 2300 ml 2100 ml BalanceBalance -1100 ml -1850 ml Exam Constitutional: alert, oriented (Obese, no apparent distress) Head: normocephalic Respiratory: other (Coarse breath sounds bilaterally, no wheezing) Cardiovascular: regular rate and rhythm, systolic murmur (S1-S2 heard) Gastrointestinal: soft, non-tender, bowel sounds Extremities: edema Labs Result Diagram: 10/09/1851610/09/1817 Results 24hrs Laboratory Tests Test 10/09/18 05:00 10/09/18 05:17 Blood Gas Specimen Source Blood arterial Arterial Blood Date Drawn 10/09/2018 5:10:34 AM Arterial Blood pH (Temp corrected) 7.469 H Arterial Blood pCO2 (Temp correct) 51.9 H Arterial Blood pO2 (Temp corrected) 65.5 L Arterial Blood HCO3 36.8 H Arterial Blood Base Excess 11.3 H Arterial Blood Oxygen Saturation 92.9 L Rich Test ACCEPTAB Arterial Blood Gas Puncture Site Right Radial Arterial Blood Carboxyhemoglobin 1.3 Arterial Blood Methemoglobin 0.3 Blood Gas A-a O2 Differential 87.4 H Oxyhemoglobin Percent 91.4 L Blood Gas Temperature 37.0 Blood Gas Modality NASAL CANNULA FiO2 30.0 Blood Gas Notified Whom MA Blood Gas Notified Time 10/09/2018 5:18:04 AM White Blood Count 5.2 Red Blood Count 4.69 Hemoglobin 12.1 Hematocrit 37.5 Mean Corpuscular Volume 80.0 L Mean Corpuscular Hemoglobin 25.8 L Mean Corpuscular Hemoglobin Concent 32.3 Red Cell Distribution Width 16.2 H Platelet Count 125 L Mean Platelet Volume 9.7 Immature Granulocytes % 0.400 Neutrophils % 50.5 Lymphocytes % 24.7 Monocytes % 20.7 H Eosinophils % 3.3 Basophils % 0.4 Nucleated Red Blood Cells % 0.0 Immature Granulocytes # 0.020 Neutrophils # 2.6 Lymphocytes # 1.3 Monocytes # 1.1 H Eosinophils # 0.2 Basophils # 0.0 Nucleated Red Blood Cells # 0.0 Prothrombin Time 19.3 H Prothrombin Time Ratio 1.5 INR International Normalized Ratio 1.62 Sodium Level 138 Potassium Level 3.9 Chloride Level 95 L Carbon Dioxide Level 36 H Anion Gap 7 Blood Urea Nitrogen 33 H Creatinine 1.11 H Est Glomerular Filtrat Rate mL/min > 60 Glucose Level 92 Calcium Level 9.2 Medications Medications Current Medications Nicotine (Nicoderm 21 Mg/ 24hr) 1 patch DAILY TRANSDERM Last administered on 10/09/18at 08:43; Admin Dose 1 PATCH; Start 10/07/18 at 09:00 Ondansetron HCl (Zofran Inj) 4 mg Q6H PRN IV NAUSEA AND/OR VOMITING; Start 10/06/18 at 22:00 Acetaminophen (Tylenol Tab) 650 mg Q6H PRN PO MILD PAIN(1-3)OR ELEVATED TEMP; Start 10/06/18 at 22:00 Aspirin (Aspirin) 81 mg DAILY PO Last administered on 10/09/18at 08:42; Admin Dose 81 MG; Start 10/07/18 at 09:00 Atorvastatin Calcium (Lipitor) 40 mg QHS PO Last administered on 10/08/18 20:55; Admin Dose 40 MG; Start 10/07/18 at 21:00 Bisacodyl (Dulcolax Supp) [address] CONSTIPATION; Start 10/06/18 at 22:30 Al Hydrox/Mg Hydrox/Simethicone (Mag-Al Plus) 20 ml Q6H PRN PO GASTROINTESTINAL UPSET; Start 10/06/18 at 22:30 Multivitamins Therapeutic (Theragran) 1 tab DAILY PO Last administered on 10/09/18 08:42; Admin Dose 1 TAB; Start 10/07/18 at 09:00 Paroxetine HCl (Paxil) 40 mg HS PO Last administered on 10/08/18 20:55; Admin Dose 40 MG; Start 10/07/18 at 21:00 Potassium Chloride (Klor-Con 10) 10 meq BID PO Last administered on 10/09/18 08:42; Admin Dose 10 MEQ; Start 10/06/18 at 22:30 Risperidone (Risperdal) 1 mg BID PO Last administered on 10/09/18 08:42; Admin Dose 1 MG; Start 10/06/18 at 22:30 Warfarin Sodium (Coumadin) 2 mg DAILY@1700 PO Last administered on 10/08/18 17:34; Admin Dose 2 MG; Start 10/07/18 at 17:00 Nitroglycerin (Nitroglycerin (Sl Tab) 0.4 Mg) 1 tab Q5M PRN SL ANGINA; Start 10/06/18 at 22:30 Acetaminophen/ Hydrocodone Bitart ([place] (5/325)) 1 tab Q6H PRN PO MODERATE PAIN LEVEL 4-6 Last administered on 10/09/18 02:32; Admin Dose 1 TAB; Start 10/07/18 at 16:30 Pantoprazole (Protonix Tab) 40 mg DAILY@06 PO Last administered on 10/09/18 06:07; Admin Dose 40 MG; Start 10/08/18 at 06:00 Furosemide (Lasix) 40 mg BID DIURETICS IV Last administered on 10/09/18 06:07; Admin Dose 40 MG; Start 10/07/18 at 18:00 Sildenafil Citrate (Revatio) 20 mg DAILY PO Last administered on 10/09/18 08:45; Admin Dose 20 MG; Start 10/07/18 at 17:00 Eye Lubricant (Artificial Tears Oph) 2 drop Q6H PRN BOTH EYES DRY EYES Last administered on 10/09/18at 08:42; Admin Dose 2 DROP; Start 10/08/18 at 13:00 Metoprolol Tartrate (Lopressor) 5 mg Q6 PRN IV HR above 130; Start 10/08/18 at 12:00 Metoprolol Tartrate (Lopressor) 25 mg TID PO Last administered on 10/09/18at 13:21; Admin Dose 25 MG; Start 10/08/18 at 21:00 Mark Churchill DO Oct 09, 2018 13:28
--- NOTE | 2018-10-09 13:54 | RADRPT ---
Echocardiogram Report Patient Name: ALE SINCLAIRPatient ID: [id number] : 1960 (57y 10m)Study Date: 10/09/2018 12:37:38 PM Gender: FAccession #: [id number] Tech: [place] Location: Ref.Physician: MARK CHURCHILL Height(Cm): BSA: Weight(Kg): Quality: AdequateAccount #: Procedures: Echocardiographic Report: Transthoracic echocardiogram with complete 2D, M-Mode, and doppler examination. Indications: Evaluate Left Ventricular function. Measurements: 2D/M Mode Doppler Measurement Value Normal Range Measurement Value Normal Range LVIDd 2D 3.5 [ 3.8 - 5.2 ] cm AV Peak Markos 1.3 [ 100.0 - 170.0 ] cm/sec LVIDs 2D 2.1 [ 2.2 - 3.5 ] cm AV Peak PG 7.0 [ 2.0 - 9.0 ] mmHg LVPWd 2D 1.1 [ 0.6 - 0.9 ] cm LVOT Peak Markos 0.9 [ 70.0 - 110.0 ] cm/sec IVSd 2D 1.1 [ 0.6 - 0.9 ] cm LVOT Peak PG 3.0 [ 2.0 - 6.0 ] mmHg AoR Diam 2D 2.6 [ 2.3 - 3.1 ] cm MV E Peak Markos 1.0 [ 60.0 - 130.0 ] cm/sec EDV 2D 50.9 [ 46.0 - 106.0 ] ml MV A Peak Markos 0.8 [ 100.0 - 120.0 ] cm/sec ESV 2D 14.1 [ 14.0 - 42.0 ] ml MV E/A 1.3 [ 0.8 - 1.5 ] ratio EF 2D 72.3 [ 54.0 - 74.0 ] percent MV Decel Time 246 [ 104 - 258 ] msec LA Dimen 2D 2.8 [ 2.7 - 3.8 ] cm Lat E` Markos 0.1 [ 10.0 - 15.0 ] cm/sec Lateral E/E` 12.0 [ 1.0 - 2.0 ] ratio MV E/A 1.3 [ 0.8 - 1.5 ] ratio TR Peak Markos 4.4 [ 100.0 - 280.0 ] cm/sec TR Peak PG 77.0 mmHg RVSP 92.0 [ 10.0 - 36.0 ] mmHg RA Pressure 15.0 mmHg Findings: Left Ventricle: Normal left ventricular systolic function. Normal left ventricular cavity size. Normal left ventricular wall thickness. Mild concentric left ventricular hypertrophy. Ejection fraction is visually estimated at 65 %. Tissue Doppler/Mitral Doppler indices are consistent with pseudonormalization with mildly elevated left atrial pressure (Stage II diastolic dysfunction). Right Ventricle: Moderate enlargement of right ventricle. Moderate right ventricular hypokinesis. Left Atrium: The left atrium is normal in size. Right Atrium: There is severe enlargement of right atrium. Mitral Valve: Normal appearance of the mitral valve. Mild mitral annular calcification. Trace mitral regurgitation. Aortic Valve: No significant aortic stenosis or insufficiency. Aortic cusps appear mildly calcified. Tricuspid Valve: Tricuspid valve not well visualized. Estimated peak PA systolic pressure 92 mmHg. There is moderate to severe tricuspid regurgitation. Pulmonic Valve: Normal pulmonic valve appearance. There is trace pulmonic regurgitation. Pericardium: Normal pericardium with no significant pericardial effusion. Aorta: Normal aortic root. IVC: Dilated IVC without respiratory collapse consistent with elevated right atrial pressure. Conclusions: Normal left ventricular systolic function. Normal left ventricular cavity size. Normal left ventricular wall thickness. Mild concentric left ventricular hypertrophy. Ejection fraction is visually estimated at 65 %. Tissue Doppler/Mitral Doppler indices are consistent with pseudonormalization with mildly elevated left atrial pressure (Stage II diastolic dysfunction). Moderate enlargement of right ventricle. Moderate right ventricular hypokinesis. The left atrium is normal in size. There is severe enlargement of right atrium. Estimated peak PA systolic pressure 92 mmHg. There is moderate to severe tricuspid regurgitation. No significant valvular stenosis or regurgitation seen of remaining visualized valves. Normal pericardium with no significant pericardial effusion. Electronically Signed By: Mark Churchill 2018-10-09 13:54:12 PST
--- NOTE | 2018-10-09 13:54 | PN ---
Date/Time of Note Date/Time of Note DATE: 10/09/18 TIME: 13:50 Assessment/Plan VTE Prophylaxis Risk score (from Ns)>0 risk: 5 SCD applied (from [facility] [place] No SCD contraindicated: low risk/ambulating Pharmacological prophylaxis: NA/contraindicated Pharm contraindication: low risk/ambulating Lines/Catheters IV C[facility]ter Type (from [facility] [place] Urinary Cath still in place: Yes Reason Cath still needed: urinary retention Assessment/Plan Hospital Course 57 y/o with ospital Course 1. UTI with CKD, creatinine was 2,March , now 1.26 2. CHF, diastolic. acute on chronci with anasarca complicated with pul htn 3. Possible left lower extremity DVT, US showed: very limited study. The left leg veins cannot be seen. No gross sonographic evidence for deep venous thrombosis in the right leg. 4. History of paroxysmal atrial fibrillation, on Coumadin, not theraputic. 5. History of hypertension; however, currently borderline normotensive. 6. History of urinary incontinence, has song catheter now. 7. Chronic obstructive pulmonary disease. 8. Hyperlipidemia. 9. Morbid obesity. 10. Gastroesophageal reflux disease. 11. Hx of schizoaffective disorder. 12. Hyponatremia 13. Hx of polysubstance abuse 14. Thrombocytopenia 15. hx of cholecystectomy. Assessment/Plan -cw lasix 40 bid, diuresising well - ? rhc - ECHO pending - cw mtp 25 tid/statin/ASA - CW Revatio - fu cardiac and pul recs - fluid restrction Result Diagram: 10/09/18 0517 10/09/18 0517 Results 24hrs Laboratory Tests Test 10/09/18 05:00 10/09/18 05:17 Blood Gas Specimen Source Blood arterial Arterial Blood Date Drawn 10/09/2018 5:10:34 AM Arterial Blood pH (Temp corrected) 7.469 H Arterial Blood pCO2 (Temp correct) 51.9 H Arterial Blood pO2 (Temp corrected) 65.5 L Arterial Blood HCO3 36.8 H Arterial Blood Base Excess 11.3 H Arterial Blood Oxygen Saturation 92.9 L Rich Test ACCEPTAB Arterial Blood Gas Puncture Site Right Radial Arterial Blood Carboxyhemoglobin 1.3 Arterial Blood Methemoglobin 0.3 Blood Gas A-a O2 Differential 87.4 H Oxyhemoglobin Percent 91.4 L Blood Gas Temperature 37.0 Blood Gas Modality NASAL CANNULA FiO2 30.0 Blood Gas Notified Whom MA Blood Gas Notified Time 10/09/2018 5:18:04 AM White Blood Count 5.2 Red Blood Count 4.69 Hemoglobin 12.1 Hematocrit 37.5 Mean Corpuscular Volume 80.0 L Mean Corpuscular Hemoglobin 25.8 L Mean Corpuscular Hemoglobin Concent 32.3 Red Cell Distribution Width 16.2 H Platelet Count 125 L Mean Platelet Volume 9.7 Immature Granulocytes % 0.400 Neutrophils % 50.5 Lymphocytes % 24.7 Monocytes % 20.7 H Eosinophils % 3.3 Basophils % 0.4 Nucleated Red Blood Cells % 0.0 Immature Granulocytes # 0.020 Neutrophils # 2.6 Lymphocytes # 1.3 Monocytes # 1.1 H Eosinophils # 0.2 Basophils # 0.0 Nucleated Red Blood Cells # 0.0 Prothrombin Time 19.3 H Prothrombin Time Ratio 1.5 INR International Normalized Ratio 1.62 Sodium Level 138 Potassium Level 3.9 Chloride Level 95 L Carbon Dioxide Level 36 H Anion Gap 7 Blood Urea Nitrogen 33 H Creatinine 1.11 H Est Glomerular Filtrat Rate mL/min > 60 Glucose Level 92 Calcium Level 9.2 Subjective 24 Hr Interval Summary Free Text/Dictation Some left eye pain net neg 3.6 L Exam/Review of Systems Exam Vitals Vital Signs Date Temp Pulse Resp B/P (MAP) Pulse Ox O2 O2 Flow FiO2 Time Delivery Rate 10/09/18 74 103/54 13:20 (70) 10/09/18 98.3 20 91 11:58 10/09/18 Nasal 4.0 08:30 Cannula 10/09/18 40 01:13 Intake and Output 10/08/18 10/08/18 10/09/18 1515:00 23:00 07:00 IntakeIntake Total 1200 ml 250 ml OutputOutput Total 2300 ml 2100 ml BalanceBalance -1100 ml -1850 ml Exam onstitutional: alert, oriented, morbiidly obese Head: normocephalic Eyes: nl conjunctiva, nl lids ENMT: nl external ears & nose Respiratory: clear to auscultation Cardiovascular: regular rate and rhythm Extremities: edema ABD WALL EDEMA Results Results 24hrs Laboratory Tests Test 10/09/18 05:00 10/09/18 05:17 Blood Gas Specimen Source Blood arterial Arterial Blood Date Drawn 10/09/2018 5:10:34 AM Arterial Blood pH (Temp corrected) 7.469 H Arterial Blood pCO2 (Temp correct) 51.9 H Arterial Blood pO2 (Temp corrected) 65.5 L Arterial Blood HCO3 36.8 H Arterial Blood Base Excess 11.3 H Arterial Blood Oxygen Saturation 92.9 L Rich Test ACCEPTAB Arterial Blood Gas Puncture Site Right Radial Arterial Blood Carboxyhemoglobin 1.3 Arterial Blood Methemoglobin 0.3 Blood Gas A-a O2 Differential 87.4 H Oxyhemoglobin Percent 91.4 L Blood Gas Temperature 37.0 Blood Gas Modality NASAL CANNULA FiO2 30.0 Blood Gas Notified Whom MA Blood Gas Notified Time 10/09/2018 5:18:04 AM White Blood Count 5.2 Red Blood Count 4.69 Hemoglobin 12.1 Hematocrit 37.5 Mean Corpuscular Volume 80.0 L Mean Corpuscular Hemoglobin 25.8 L Mean Corpuscular Hemoglobin Concent 32.3 Red Cell Distribution Width 16.2 H Platelet Count 125 L Mean Platelet Volume 9.7 Immature Granulocytes % 0.400 Neutrophils % 50.5 Lymphocytes % 24.7 Monocytes % 20.7 H Eosinophils % 3.3 Basophils % 0.4 Nucleated Red Blood Cells % 0.0 Immature Granulocytes # 0.020 Neutrophils # 2.6 Lymphocytes # 1.3 Monocytes # 1.1 H Eosinophils # 0.2 Basophils # 0.0 Nucleated Red Blood Cells # 0.0 Prothrombin Time 19.3 H Prothrombin Time Ratio 1.5 INR International Normalized Ratio 1.62 Sodium Level 138 Potassium Level 3.9 Chloride Level 95 L Carbon Dioxide Level 36 H Anion Gap 7 Blood Urea Nitrogen 33 H Creatinine 1.11 H Est Glomerular Filtrat Rate mL/min > 60 Glucose Level 92 Calcium Level 9.2 Medications Medication Current Medications Nicotine (Nicoderm 21 Mg/ 24hr) 1 patch DAILY TRANSDERM Last administered on 10/09/18at 08:43; Admin Dose 1 PATCH; Start 10/07/18 at 09:00 Ondansetron HCl (Zofran Inj) 4 mg Q6H PRN IV NAUSEA AND/OR VOMITING; Start 10/06/18 at 22:00 Acetaminophen (Tylenol Tab) 650 mg Q6H PRN PO MILD PAIN(1-3)OR ELEVATED TEMP; Start 10/06/18 at 22:00 Aspirin (Aspirin) 81 mg DAILY PO Last administered on 10/09/18 08:42; Admin Dose 81 MG; Start 10/07/18 at 09:00 Atorvastatin Calcium (Lipitor) 40 mg QHS PO Last administered on 10/08/18 20:55; Admin Dose 40 MG; Start 10/07/18 at 21:00 Bisacodyl (Dulcolax Supp) 10 mg DAILY PRN [place] CONSTIPATION; Start 10/06/18 at 22:30 Al Hydrox/Mg Hydrox/Simethicone (Mag-Al Plus) 20 ml Q6H PRN PO GASTROINTESTINAL UPSET; Start 10/06/18 at 22:30 Multivitamins Therapeutic (Theragran) 1 tab DAILY PO Last administered on 10/09/18 08:42; Admin Dose 1 TAB; Start 10/07/18 at 09:00 Paroxetine HCl (Paxil) 40 mg HS PO Last administered on 10/08/18 20:55; Admin Dose 40 MG; Start 10/07/18 at 21:00 Potassium Chloride (Klor-Con 10) 10 meq BID PO Last administered on 10/09/18 08:42; Admin Dose 10 MEQ; Start 10/06/18 at 22:30 Risperidone (Risperdal) 1 mg BID PO Last administered on 10/09/18 08:42; Admin Dose 1 MG; Start 10/06/18 at 22:30 Warfarin Sodium (Coumadin) 2 mg DAILY@1700 PO Last administered on 10/08/18 17:34; Admin Dose 2 MG; Start 10/07/18 at 17:00 Nitroglycerin (Nitroglycerin (Sl Tab) 0.4 Mg) 1 tab Q5M PRN SL ANGINA; Start 10/06/18 at 22:30 Acetaminophen/ Hydrocodone Bitart ([place] (5/325)) 1 tab Q6H PRN PO MODERATE PAIN LEVEL 4-6 Last administered on 10/09/18 02:32; Admin Dose 1 TAB; Start 10/07/18 at 16:30 Pantoprazole (Protonix Tab) 40 mg DAILY@06 PO Last administered on 10/09/18 06:07; Admin Dose 40 MG; Start 10/08/18 at 06:00 Furosemide (Lasix) 40 mg BID DIURETICS IV Last administered on 10/09/18 06:07; Admin Dose 40 MG; Start 2/9/19 at 18:00 Sildenafil Citrate (Revatio) 20 mg DAILY PO Last administered on 10/09/18 08:45; Admin Dose 20 MG; Start 10/07/18 at 17:00 Eye Lubricant (Artificial Tears Oph) 2 drop Q6H PRN BOTH EYES DRY EYES Last administered on 10/09/18at 08:42; Admin Dose 2 DROP; Start 10/08/18 at 13:00 Metoprolol Tartrate (Lopressor) 5 mg Q6 PRN IV HR above 130; Start 10/08/18 at 12:00 Metoprolol Tartrate (Lopressor) 25 mg TID PO Last administered on 10/09/18 13:21; Admin Dose 25 MG; Start 10/08/18 at 21:00 DANA LIVINGSTON MD Oct 09, 2018 13:54
[2018-10-09] MEDS: CIPROFLOXACIN 0.3% 2.5 ML OPH LEFT EYE SCH ×2 (14:48→21:00)
--- NOTE | 2018-10-09 15:48 | CONS ---
Consult Date/Type/Reason Admit Date/Time Oct 06, 2018 at 18:33 Initial Consult Date 10/08/18 Type of Consult Pulmonary Requesting Provider: DANA LIVINGSTON MD Date/Time of Note DATE: 10/09/18 TIME: 15:44 Subjective Patient comfortable this morning no respiratory distress. Sleeping bilevel at bedside. Objective Vital Signs Date Temp Pulse Resp B/P (MAP) Pulse Ox O2 O2 Flow FiO2 Time Delivery Rate 10/09/18 98.3 72 20 104/51 92 15:06 (68) 10/09/18 Nasal 4.0 08:30 Cannula 10/09/18 40 01:13 Intake and Output 10/08/18 10/08/18 10/09/18 1515:00 23:00 07:00 IntakeIntake Total 1200 ml 250 ml OutputOutput Total 2300 ml 2100 ml BalanceBalance -1100 ml -1850 ml Exam GENERAL: Morbidly obese young lady comfortable at rest no acute distress VITAL SIGNS: per chart NECK: Supple. No JVD or lymphadenopathy. CARDIAC EXAM: S1, S2. No added sounds or murmurs. CHEST: Diminished air entry bilaterally no respiratory distress ABDOMEN: Soft, nontender. No guarding or rebound. EXTREMITIES: No cyanosis, clubbing or edema. NEUROLOGIC: Generalized weakness. No focal deficits. Results/Medications Result Diagram: 10/09/18 0517 10/09/18 0517 Results 24 hrs Laboratory Tests Test 10/09/18 05:00 10/09/18 05:17 Blood Gas Specimen Source Blood arterial Arterial Blood Date Drawn 10/09/2018 5:10:34 AM Arterial Blood pH (Temp corrected) 7.469 H Arterial Blood pCO2 (Temp correct) 51.9 H Arterial Blood pO2 (Temp corrected) 65.5 L Arterial Blood HCO3 36.8 H Arterial Blood Base Excess 11.3 H Arterial Blood Oxygen Saturation 92.9 L Rich Test ACCEPTAB Arterial Blood Gas Puncture Site Right Radial Arterial Blood Carboxyhemoglobin 1.3 Arterial Blood Methemoglobin 0.3 Blood Gas A-a O2 Differential 87.4 H Oxyhemoglobin Percent 91.4 L Blood Gas Temperature 37.0 Blood Gas Modality NASAL CANNULA FiO2 30.0 Blood Gas Notified Whom MA Blood Gas Notified Time 10/09/2018 5:18:04 AM White Blood Count 5.2 Red Blood Count 4.69 Hemoglobin 12.1 Hematocrit 37.5 Mean Corpuscular Volume 80.0 L Mean Corpuscular Hemoglobin 25.8 L Mean Corpuscular Hemoglobin Concent 32.3 Red Cell Distribution Width 16.2 H Platelet Count 125 L Mean Platelet Volume 9.7 Immature Granulocytes % 0.400 Neutrophils % 50.5 Lymphocytes % 24.7 Monocytes % 20.7 H Eosinophils % 3.3 Basophils % 0.4 Nucleated Red Blood Cells % 0.0 Immature Granulocytes # 0.020 Neutrophils # 2.6 Lymphocytes # 1.3 Monocytes # 1.1 H Eosinophils # 0.2 Basophils # 0.0 Nucleated Red Blood Cells # 0.0 Prothrombin Time 19.3 H Prothrombin Time Ratio 1.5 INR International Normalized Ratio 1.62 Sodium Level 138 Potassium Level 3.9 Chloride Level 95 L Carbon Dioxide Level 36 H Anion Gap 7 Blood Urea Nitrogen 33 H Creatinine 1.11 H Est Glomerular Filtrat Rate mL/min > 60 Glucose Level 92 Calcium Level 9.2 Medications Current Medications Nicotine (Nicoderm 21 Mg/ 24hr) 1 patch DAILY TRANSDERM Last administered on 10/09/18at 08:43; Admin Dose 1 PATCH; Start 10/07/18 at 09:00 Ondansetron HCl (Zofran Inj) 4 mg Q6H PRN IV NAUSEA AND/OR VOMITING; Start 10/06/18 at 22:00 Acetaminophen (Tylenol Tab) 650 mg Q6H PRN PO MILD PAIN(1-3)OR ELEVATED TEMP; Start 10/06/18 at 22:00 Aspirin (Aspirin) 81 mg DAILY PO Last administered on 10/09/18at 08:42; Admin Dose 81 MG; Start 10/07/18 at 09:00 Atorvastatin Calcium (Lipitor) 40 mg QHS PO Last administered on 10/08/18at 20:55; Admin Dose 40 MG; Start 10/07/18 at 21:00 Bisacodyl (Dulcolax Supp) 10 mg DAILY PRN [place] CONSTIPATION; Start 10/06/18 at 22:30 Al Hydrox/Mg Hydrox/Simethicone (Mag-Al Plus) 20 ml Q6H PRN PO GASTROINTESTINAL UPSET; Start 10/06/18 at 22:30 Multivitamins Therapeutic (Theragran) 1 tab DAILY PO Last administered on 10/09/18at 08:42; Admin Dose 1 TAB; Start 10/07/18 at 09:00 Paroxetine HCl (Paxil) 40 mg HS PO Last administered on 10/08/18 20:55; Admin Dose 40 MG; Start 10/07/18 at 21:00 Potassium Chloride (Klor-Con 10) 10 meq BID PO Last administered on 10/09/18 08:42; Admin Dose 10 MEQ; Start 10/06/18 at 22:30 Risperidone (Risperdal) 1 mg BID PO Last administered on 10/09/18 08:42; Admin Dose 1 MG; Start 10/06/18 at 22:30 Warfarin Sodium (Coumadin) 2 mg DAILY@1700 PO Last administered on 10/08/18 17:34; Admin Dose 2 MG; Start 10/07/18 at 17:00 Nitroglycerin (Nitroglycerin (Sl Tab) 0.4 Mg) 1 tab Q5M PRN SL ANGINA; Start 10/06/18 at 22:30 Acetaminophen/ Hydrocodone Bitart ([place] (5/325)) 1 tab Q6H PRN PO MODERATE PAIN LEVEL 4-6 Last administered on 10/09/18 02:32; Admin Dose 1 TAB; Start 10/07/18 at 16:30 Pantoprazole (Protonix Tab) 40 mg DAILY@06 PO Last administered on 10/09/18 06:07; Admin Dose 40 MG; Start 10/08/18 at 06:00 Furosemide (Lasix) 40 mg BID DIURETICS IV Last administered on 10/09/18 06:07; Admin Dose 40 MG; Start 10/07/18 at 18:00 Sildenafil Citrate (Revatio) 20 mg DAILY PO Last administered on 10/09/18 08:45; Admin Dose 20 MG; Start 10/07/18 at 17:00 Eye Lubricant (Artificial Tears Oph) 2 drop Q6H PRN BOTH EYES DRY EYES Last administered on 10/09/18 08:42; Admin Dose 2 DROP; Start 10/08/18 at 13:00 Metoprolol Tartrate (Lopressor) 5 mg Q6 PRN IV HR above 130; Start 10/08/18 at 12:00 Metoprolol Tartrate (Lopressor) 25 mg TID PO Last administered on 10/09/18 13:21; Admin Dose 25 MG; Start 10/08/18 at 21:00 Ciprofloxacin HCl (Ciloxan 0.3% Oph) 1 drop BID LEFT EYE Last administered on 10/09/18at 14:48; Admin Dose 1 DROP; Start 10/09/18 at 14:00 Assessment/Plan Hospital Course (Demo Recall) IMP: 1 CTEPH: with RVSP in the 80s, 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 Acute decompensated heart failure with volume overload 3. LUMA likely 2/2 above--improved 4. History of JEANNINE/OHS 5. Afib RECS: -Continue diuresis as tolerated -We will discuss with cardiology availability of right heart catheterization -For now would continue BIPAP 15/8 qhs. -Smoking cessation counseling -Adempas not on formulary. Outpatient medication / pulmonary follow up EHSAN BINGHAM MD, [facility] Oct 09, 2018 15:48
[2018-10-09] MEDS: WARFARIN 2 MG TAB PO SCH (17:42)
[2018-10-09] MEDS: PAROXETINE 20 MG TAB PO SCH (20:43)
[2018-10-09] MEDS: ATORVASTATIN 40 MG TAB PO SCH (20:43)
[2018-10-10] VITALS (12 sets, daily range): BP systolic 79–121; BP diastolic 42–64; PULSE 67–127; RESP 18–20
[2018-10-10] MEDS: HYDROCODONE/APAP (5/325) TAB PO PRN ×2 (03:59→17:18)
[2018-10-10] MEDS: FUROSEMIDE 40 MG INJ IV SCH ×2 (05:50→17:17)
[2018-10-10] MEDS: PANTOPRAZOLE (EC) 40 MG TAB PO SCH (05:50)
[2018-10-10] MEDS: MULTIVITAMINS THERAPEUTIC TAB PO SCH (08:10)
[2018-10-10] MEDS: RISPERIDONE 1 MG TAB PO SCH ×2 (08:10→20:16)
[2018-10-10] MEDS: POTASSIUM CHLORIDE (SR) 10 MEQ TAB PO SCH ×2 (08:10→20:15)
[2018-10-10] MEDS: ASPIRIN 81 MG TAB PO SCH (08:10)
[2018-10-10] MEDS: SILDENAFIL 20 MG TAB PO SCH (08:11)
[2018-10-10] MEDS: METOPROLOL 25 MG TAB PO SCH ×2 (08:11→20:17)
[2018-10-10] MEDS: NICOTINE (21 MG/24 HR) PATCH TRANSDERM SCH ×2 (08:12→09:39)
[2018-10-10] MEDS: CIPROFLOXACIN 0.3% 2.5 ML OPH LEFT EYE SCH ×3 (08:20→20:15)
--- NOTE | 2018-10-10 11:43 | CONS ---
Assessment/Plan Cardiology Heart Failure Type: Acute on Chronic Heart Failure Type: Diastolic Assessment/Plan Hospital Course (Demo Recall) Acute decompensated diastolic and right ventricular congestive heart failure Acute kidney injury Right ventricular systolic dysfunction Severe pulmonary hypertension Paroxysmal atrial flutter, currently sinus rhythm Hypertension Obesity Active tobacco use Psychiatric disorder SVT -Patient with improvement in shortness of breath. Continue diuretics as per n ephrology -Patient with known history of pulmonary hypertension. She is volume overloaded at the current time but improving. Repeat echocardiogram after diuresis with improvement in pulmonary pressures but still with severe pulmonary hypertension which patient has a known history of. Patient with known noncompliance with medications, low-sodium diet as well as continued smoking. Did discuss right heart cath with patient, she is currently refusing invasive procedures and requesting aggressive medical management, if no improvement, she would consider right heart cath at a later time. -Diuretics as per renal -Blood pressure tolerates, consider increasing frequency of sildenafil Consultation Date/Type/Reason Admit Date/Time Oct 06, 2018 at 18:33 Initial Consult Date 10/08/18 Type of Consult Cardiology Requesting Provider: DANA LIVINGSTON MD Date/Time of Note DATE: 10/10/18 TIME: 11:40 24 HR Interval Summary Free Text/Dictation Shortness of breath continues to improve. Denies chest pain or palpitation Exam/Review of Systems Vital Signs Vitals Vital Signs Date Temp Pulse Resp B/P (MAP) Pulse Ox O2 O2 Flow FiO2 Time Delivery Rate 10/10/18 98.0 76 20 108/58 91 11:16 (75) 10/10/18 4.0 10:25 10/10/18 Nasal 09:44 Cannula 10/10/18 40 02:02 Intake and Output 10/09/18 10/09/18 10/10/18 1515:00 23:00 07:00 IntakeIntake Total 600 ml OutputOutput Total 1800 ml 800 ml BalanceBalance -1800 ml -200 ml Exam Constitutional: alert, oriented (No apparent distress, morbid obesity) Head: normocephalic Respiratory: other (Coarse breath sounds bilaterally, no wheezing) Cardiovascular: regular rate and rhythm (S1-S2 heard) Gastrointestinal: soft, non-tender, bowel sounds Extremities: edema Labs Result Diagram: 10/10/18 0730 10/10/18 0730 Results 24hrs Laboratory Tests Test 10/10/18 07:30 10/10/18 10:00 White Blood Count 5.5 Red Blood Count 4.78 Hemoglobin 12.3 Hematocrit 38.1 Mean Corpuscular Volume 79.7 L Mean Corpuscular Hemoglobin 25.7 L Mean Corpuscular Hemoglobin Concent 32.3 Red Cell Distribution Width 16.1 H Platelet Count 134 L Mean Platelet Volume 10.0 Immature Granulocytes % 0.400 Neutrophils % 57.6 Lymphocytes % 22.3 Monocytes % 17.0 H Eosinophils % 2.2 Basophils % 0.5 Nucleated Red Blood Cells % 0.0 Immature Granulocytes # 0.020 Neutrophils # 3.2 Lymphocytes # 1.2 Monocytes # 0.9 Eosinophils # 0.1 Basophils # 0.0 Nucleated Red Blood Cells # 0.0 Sodium Level 136 Potassium Level 3.8 Chloride Level 96 L Carbon Dioxide Level 39 H Anion Gap 1 L Blood Urea Nitrogen 29 H Creatinine 1.10 H Est Glomerular Filtrat Rate mL/min > 60 Glucose Level 102 Calcium Level 9.3 Phosphorus Level 3.6 Magnesium Level 1.9 Blood Gas Specimen Source Blood arterial Arterial Blood Date Drawn 10/10/2018 11:10:49 AM Arterial Blood pH (Temp corrected) 7.440 Arterial Blood pCO2 (Temp correct) 59.6 H Arterial Blood pO2 (Temp corrected) 66.9 L Arterial Blood HCO3 39.6 H Arterial Blood Base Excess 12.8 H Arterial Blood Oxygen Saturation 92.4 L Rich Test ACCEPTAB Arterial Blood Gas Puncture Site Right Radial Arterial Blood Carboxyhemoglobin 1.1 Arterial Blood Methemoglobin 0.2 Blood Gas A-a O2 Differential 120.6 H Oxyhemoglobin Percent 91.2 L Blood Gas Temperature 37.0 Blood Gas Modality NASAL CANNULA FiO2 36.0 Blood Gas Notified Whom Blood Gas Notified Time 10/10/2018 11:19:33 AM Medications Medications Current Medications Nicotine (Nicoderm 21 Mg/ 24hr) 1 patch DAILY TRANSDERM Last administered on 10/10/18at 09:39; Admin Dose 1 PATCH; Start 10/07/18 at 09:00 Ondansetron HCl (Zofran Inj) 4 mg Q6H PRN IV NAUSEA AND/OR VOMITING; Start 10/06/18 at 22:00 Acetaminophen (Tylenol Tab) 650 mg Q6H PRN PO MILD PAIN(1-3)OR ELEVATED TEMP; Start 10/06/18 at 22:00 Aspirin (Aspirin) 81 mg DAILY PO Last administered on 10/10/18 08:10; Admin Dose 81 MG; Start 10/07/18 at 09:00 Atorvastatin Calcium (Lipitor) 40 mg QHS PO Last administered on 10/09/18 20:43; Admin Dose 40 MG; Start 10/07/18 at 21:00 Bisacodyl (Dulcolax Supp) 10 mg DAILY PRN [place] CONSTIPATION; Start 10/06/18 at 22:30 Al Hydrox/Mg Hydrox/Simethicone (Mag-Al Plus) 20 ml Q6H PRN PO GASTROINTESTINAL UPSET; Start 10/06/18 at 22:30 Multivitamins Therapeutic (Theragran) 1 tab DAILY PO Last administered on 10/10/18 08:10; Admin Dose 1 TAB; Start 10/07/18 at 09:00 Paroxetine HCl (Paxil) 40 mg HS PO Last administered on 10/09/18 20:43; Admin Dose 40 MG; Start 10/07/18 at 21:00 Potassium Chloride (Klor-Con 10) 10 meq BID PO Last administered on 10/10/18 08:10; Admin Dose 10 MEQ; Start 10/06/18 at 22:30 Risperidone (Risperdal) 1 mg BID PO Last administered on 10/10/18 08:10; Admin Dose 1 MG; Start 10/06/18 at 22:30 Warfarin Sodium (Coumadin) 2 mg DAILY@1700 PO Last administered on 10/09/18 17:42; Admin Dose 2 MG; Start 10/07/18 at 17:00 Nitroglycerin (Nitroglycerin (Sl Tab) 0.4 Mg) 1 tab Q5M PRN SL ANGINA; Start 10/06/18 at 22:30 Acetaminophen/ Hydrocodone Bitart ([place] (5/325)) 1 tab Q6H PRN PO MODERATE PAIN LEVEL 4-6 Last administered on 10/10/18 03:59; Admin Dose 1 TAB; Start 10/07/18 at 16:30 Pantoprazole (Protonix Tab) 40 mg DAILY@06 PO Last administered on 10/10/18 05:50; Admin Dose 40 MG; Start 10/08/18 at 06:00 Furosemide (Lasix) 40 mg BID DIURETICS IV Last administered on 10/10/18 05:50; Admin Dose 40 MG; Start 10/07/18 at 18:00 Sildenafil Citrate (Revatio) 20 mg DAILY PO Last administered on 10/10/18at 08:11; Admin Dose 20 MG; Start 10/07/18 at 17:00 Eye Lubricant (Artificial Tears Oph) 2 drop Q6H PRN BOTH EYES DRY EYES Last administered on 10/09/18at 08:42; Admin Dose 2 DROP; Start 10/08/18 at 13:00 Metoprolol Tartrate (Lopressor) 5 mg Q6 PRN IV HR above 130; Start 10/08/18 at 12:00 Metoprolol Tartrate (Lopressor) 25 mg TID PO Last administered on 10/09/18at 20:47; Admin Dose 25 MG; Start 10/08/18 at 21:00 Ciprofloxacin HCl (Ciloxan 0.3% Oph) 1 drop BID LEFT EYE Last administered on 10/10/18at 09:39; Admin Dose 1 DROP; Start 10/09/18 at 14:00 Mark Churchill DO Oct 10, 2018 11:43
[2018-10-10] MEDS ORDERED: MAGNESIUM SULFATE 2 GM/50 ML 50 ML IVPB ONE (12:00)
--- NOTE | 2018-10-10 12:39 | CONS ---
Consult Date/Type/Reason Admit Date/Time Oct 06, 2018 at 18:33 Initial Consult Date 10/08/18 Type of Consult Pulmonary Requesting Provider: DANA LIVINGSTON MD Date/Time of Note DATE: 10/10/18 TIME: 12:39 Subjective Comfortable this morning. No respiratory distress Objective Vital Signs Date Temp Pulse Resp B/P (MAP) Pulse Ox O2 O2 Flow FiO2 Time Delivery Rate 10/10/18 98.0 76 20 108/58 91 11:16 (75) 10/10/18 4.0 10:25 10/10/18 Nasal 09:44 Cannula 10/10/18 40 02:02 Intake and Output 10/09/18 10/09/18 10/10/18 1515:00 23:00 07:00 IntakeIntake Total 600 ml OutputOutput Total 1800 ml 800 ml BalanceBalance -1800 ml -200 ml Exam GENERAL: Morbidly obese young lady comfortable at rest VITAL SIGNS: per chart NECK: Supple. No JVD or lymphadenopathy. CARDIAC EXAM: S1, S2. No added sounds or murmurs. CHEST: clear bilaterally, No added sounds, rales or wheezes ABDOMEN: Soft, nontender. No guarding or rebound. EXTREMITIES: No cyanosis, clubbing or edema. NEUROLOGIC: Generalized weakness. No focal deficits. Results/Medications Result Diagram: 10/10/1872910/10/18 07 Results 24 hrs Laboratory Tests Test 10/10/18 07:30 10/10/18 10:00 White Blood Count 5.5 Red Blood Count 4.78 Hemoglobin 12.3 Hematocrit 38.1 Mean Corpuscular Volume 79.7 L Mean Corpuscular Hemoglobin 25.7 L Mean Corpuscular Hemoglobin Concent 32.3 Red Cell Distribution Width 16.1 H Platelet Count 134 L Mean Platelet Volume 10.0 Immature Granulocytes % 0.400 Neutrophils % 57.6 Lymphocytes % 22.3 Monocytes % 17.0 H Eosinophils % 2.2 Basophils % 0.5 Nucleated Red Blood Cells % 0.0 Immature Granulocytes # 0.020 Neutrophils # 3.2 Lymphocytes # 1.2 Monocytes # 0.9 Eosinophils # 0.1 Basophils # 0.0 Nucleated Red Blood Cells # 0.0 Sodium Level 136 Potassium Level 3.8 Chloride Level 96 L Carbon Dioxide Level 39 H Anion Gap 1 L Blood Urea Nitrogen 29 H Creatinine 1.10 H Est Glomerular Filtrat Rate mL/min > 60 Glucose Level 102 Calcium Level 9.3 Phosphorus Level 3.6 Magnesium Level 1.9 Blood Gas Specimen Source Blood arterial Arterial Blood Date Drawn 10/10/2018 11:10:49 AM Arterial Blood pH (Temp corrected) 7.440 Arterial Blood pCO2 (Temp correct) 59.6 H Arterial Blood pO2 (Temp corrected) 66.9 L Arterial Blood HCO3 39.6 H Arterial Blood Base Excess 12.8 H Arterial Blood Oxygen Saturation 92.4 L Rich Test ACCEPTAB Arterial Blood Gas Puncture Site Right Radial Arterial Blood Carboxyhemoglobin 1.1 Arterial Blood Methemoglobin 0.2 Blood Gas A-a O2 Differential 120.6 H Oxyhemoglobin Percent 91.2 L Blood Gas Temperature 37.0 Blood Gas Modality NASAL CANNULA FiO2 36.0 Blood Gas Notified Whom WS Blood Gas Notified Time 10/10/2018 11:19:33 AM Medications Current Medications Nicotine (Nicoderm 21 Mg/ 24hr) 1 patch DAILY TRANSDERM Last administered on 10/10/18at 09:39; Admin Dose 1 PATCH; Start 10/07/18 at 09:00 Ondansetron HCl (Zofran Inj) 4 mg Q6H PRN IV NAUSEA AND/OR VOMITING; Start 10/06/18 at 22:00 Acetaminophen (Tylenol Tab) 650 mg Q6H PRN PO MILD PAIN(1-3)OR ELEVATED TEMP; Start 10/06/18 at 22:00 Aspirin (Aspirin) 81 mg DAILY PO Last administered on 10/10/18at 08:10; Admin Dose 81 MG; Start 10/07/18 at 09:00 Atorvastatin Calcium (Lipitor) 40 mg QHS PO Last administered on 10/09/18at 20:43; Admin Dose 40 MG; Start 10/07/18 at 21:00 Bisacodyl (Dulcolax Supp) 10 mg DAILY PRN [place] CONSTIPATION; Start 10/06/18 at 22:30 Al Hydrox/Mg Hydrox/Simethicone (Mag-Al Plus) 20 ml Q6H PRN PO GASTROINTESTINAL UPSET; Start 10/06/18 at 22:30 Multivitamins Therapeutic (Theragran) 1 tab DAILY PO Last administered on 10/10/18at 08:10; Admin Dose 1 TAB; Start 10/07/18 at 09:00 Paroxetine HCl (Paxil) 40 mg HS PO Last administered on 10/09/18 20:43; Admin Dose 40 MG; Start 10/07/18 at 21:00 Potassium Chloride (Klor-Con 10) 10 meq BID PO Last administered on 10/10/18 0 8:10; Admin Dose 10 MEQ; Start 10/06/18 at 22:30 Risperidone (Risperdal) 1 mg BID PO Last administered on 10/10/18 08:10; Admin Dose 1 MG; Start 10/06/18 at 22:30 Warfarin Sodium (Coumadin) 2 mg DAILY@1700 PO Last administered on 10/09/18 17:42; Admin Dose 2 MG; Start 10/07/18 at 17:00 Nitroglycerin (Nitroglycerin (Sl Tab) 0.4 Mg) 1 tab Q5M PRN [place] ANGINA; Start 10/06/18 at 22:30 Acetaminophen/ Hydrocodone Bitart ([place] (5/325)) 1 tab Q6H PRN PO MODERATE PAIN LEVEL 4-6 Last administered on 10/10/18 03:59; Admin Dose 1 TAB; Start 10/07/18 at 16:30 Pantoprazole (Protonix Tab) 40 mg DAILY@06 PO Last administered on 10/10/18 05:50; Admin Dose 40 MG; Start 10/08/18 at 06:00 Furosemide (Lasix) 40 mg BID DIURETICS IV Last administered on 10/10/18 05:50; Admin Dose 40 MG; Start 10/07/18 at 18:00 Sildenafil Citrate (Revatio) 20 mg DAILY PO Last administered on 10/10/18 08:11; Admin Dose 20 MG; Start 10/07/18 at 17:00 Eye Lubricant (Artificial Tears Oph) 2 drop Q6H PRN BOTH EYES DRY EYES Last administered on 10/09/18 08:42; Admin Dose 2 DROP; Start 10/08/18 at 13:00 Metoprolol Tartrate (Lopressor) 5 mg Q6 PRN IV HR above 130; Start 10/08/18 at 12:00 Ciprofloxacin HCl (Ciloxan 0.3% Oph) 1 drop BID LEFT EYE Last administered on 10/10/18 09:39; Admin Dose 1 DROP; Start 10/09/18 at 14:00 Metoprolol Tartrate (Lopressor) 25 mg BID PO ; Start 10/10/18 at 21:00 Magnesium Sulfate 50 ml @ 25 mls/hr ONCE ONCE IVPB Last administered on 10/10/18at 12:09; Admin Dose 25 MLS/HR; Start 10/10/18 at 12:00; Stop 10/10/18 at 13:59 Assessment/Plan Hospital Course (Demo Recall) IMP: 1 CTEPH: with RVSP in the 80s, 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 Acute decompensated heart failure with volume overload 3. LUMA likely 2/2 above--improved 4. History of JEANNINE/OHS 5. Afib RECS: -Continue diuresis as tolerated -We will discuss with cardiology availability of right heart catheterization if not available we will treat empirically -For now would continue BIPAP 15/8 qhs. -Smoking cessation counseling -Adempas not on formulary. Outpatient medication / pulmonary follow up [facility]HAM [facility] Oct 10, 2018 12:39
--- NOTE | 2018-10-10 13:17 | PN ---
Date/Time of Note Date/Time of Note DATE: 10/10/18 TIME: 13:11 Assessment/Plan VTE Prophylaxis Risk score (from Ns)>0 risk: 7 SCD applied (from [facility]): No SCD contraindicated: low risk/ambulating Pharmacological prophylaxis: NA/contraindicated Pharm contraindication: low risk/ambulating Lines/Catheters IV C[facility]ter Type (from [facility] [place] Urinary Cath still in place: Yes Reason Cath still needed: urinary retention Assessment/Plan Hospital Course 57 y/o with ospital Course 1. UTI with CKD, creatinine was 2,March , now 1.26 2. CHF, diastolic. acute on chronci with anasarca complicated with pul htn 3. Possible left lower extremity DVT, US showed: very limited study. The left leg veins cannot be seen. No gross sonographic evidence for deep venous thrombosis in the right leg. 4. History of paroxysmal atrial fibrillation, on Coumadin, not theraputic. 5. History of hypertension; however, currently borderline normotensive. 6. History of urinary incontinence, has song catheter now. 7. Chronic obstructive pulmonary disease. 8. Hyperlipidemia. 9. Morbid obesity. 10. Gastroesophageal reflux disease. 11. Hx of schizoaffective disorder. 12. Hyponatremia 13. Hx of polysubstance abuse 14. Thrombocytopenia 15. hx of cholecystectomy. Assessment/Plan -cw lasix 40 bid, diuresising well - neg 3.8 L - ? rhc - Diamox x1 for alkalosis - cw mtp 25 tid/statin/ASA - CW Revatio - fu cardiac and pul recs - fluid restriction Result Diagram: 10/10/18 0730 10/10/18 0730 Results 24hrs Laboratory Tests Test 10/10/18 07:30 10/10/18 10:00 White Blood Count 5.5 Red Blood Count 4.78 Hemoglobin 12.3 Hematocrit 38.1 Mean Corpuscular Volume 79.7 L Mean Corpuscular Hemoglobin 25.7 L Mean Corpuscular Hemoglobin Concent 32.3 Red Cell Distribution Width 16.1 H Platelet Count 134 L Mean Platelet Volume 10.0 Immature Granulocytes % 0.400 Neutrophils % 57.6 Lymphocytes % 22.3 Monocytes % 17.0 H Eosinophils % 2.2 Basophils % 0.5 Nucleated Red Blood Cells % 0.0 Immature Granulocytes # 0.020 Neutrophils # 3.2 Lymphocytes # 1.2 Monocytes # 0.9 Eosinophils # 0.1 Basophils # 0.0 Nucleated Red Blood Cells # 0.0 Sodium Level 136 Potassium Level 3.8 Chloride Level 96 L Carbon Dioxide Level 39 H Anion Gap 1 L Blood Urea Nitrogen 29 H Creatinine 1.10 H Est Glomerular Filtrat Rate mL/min > 60 Glucose Level 102 Calcium Level 9.3 Phosphorus Level 3.6 Magnesium Level 1.9 Blood Gas Specimen Source Blood arterial Arterial Blood Date Drawn 10/10/2018 11:10:49 AM Arterial Blood pH (Temp corrected) 7.440 Arterial Blood pCO2 (Temp correct) 59.6 H Arterial Blood pO2 (Temp corrected) 66.9 L Arterial Blood HCO3 39.6 H Arterial Blood Base Excess 12.8 H Arterial Blood Oxygen Saturation 92.4 L Rich Test ACCEPTAB Arterial Blood Gas Puncture Site Right Radial Arterial Blood Carboxyhemoglobin 1.1 Arterial Blood Methemoglobin 0.2 Blood Gas A-a O2 Differential 120.6 H Oxyhemoglobin Percent 91.2 L Blood Gas Temperature 37.0 Blood Gas Modality NASAL CANNULA FiO2 36.0 Blood Gas Notified Whom WS Blood Gas Notified Time 10/10/2018 11:19:33 AM Subjective 24 Hr Interval Summary Free Text/Dictation Feels better. NeT NEG -3.8 L Exam/Review of Systems Exam Vitals Vital Signs Date Temp Pulse Resp B/P (MAP) Pulse Ox O2 O2 Flow FiO2 Time Delivery Rate 10/10/18 98.0 76 20 108/58 91 11:16 (75) 10/10/18 4.0 10:25 10/10/18 Nasal 09:44 Cannula 10/10/18 40 02:02 Intake and Output 10/09/18 10/09/18 10/10/18 1515:00 23:00 07:00 IntakeIntake Total 600 ml OutputOutput Total 1800 ml 800 ml BalanceBalance -1800 ml -200 ml Exam onstitutional: alert, oriented, morbiidly obese Head: normocephalic Eyes: nl conjunctiva, nl lids ENMT: nl external ears & nose Respiratory: clear to auscultation Cardiovascular: regular rate and rhythm Extremities: edema ABD WALL EDEMA Results Results 24hrs Laboratory Tests Test 10/10/18 07:30 10/10/18 10:00 White Blood Count 5.5 Red Blood Count 4.78 Hemoglobin 12.3 Hematocrit 38.1 Mean Corpuscular Volume 79.7 L Mean Corpuscular Hemoglobin 25.7 L Mean Corpuscular Hemoglobin Concent 32.3 Red Cell Distribution Width 16.1 H Platelet Count 134 L Mean Platelet Volume 10.0 Immature Granulocytes % 0.400 Neutrophils % 57.6 Lymphocytes % 22.3 Monocytes % 17.0 H Eosinophils % 2.2 Basophils % 0.5 Nucleated Red Blood Cells % 0.0 Immature Granulocytes # 0.020 Neutrophils # 3.2 Lymphocytes # 1.2 Monocytes # 0.9 Eosinophils # 0.1 Basophils # 0.0 Nucleated Red Blood Cells # 0.0 Sodium Level 136 Potassium Level 3.8 Chloride Level 96 L Carbon Dioxide Level 39 H Anion Gap 1 L Blood Urea Nitrogen 29 H Creatinine 1.10 H Est Glomerular Filtrat Rate mL/min > 60 Glucose Level 102 Calcium Level 9.3 Phosphorus Level 3.6 Magnesium Level 1.9 Blood Gas Specimen Source Blood arterial Arterial Blood Date Drawn 10/10/2018 11:10:49 AM Arterial Blood pH (Temp corrected) 7.440 Arterial Blood pCO2 (Temp correct) 59.6 H Arterial Blood pO2 (Temp corrected) 66.9 L Arterial Blood HCO3 39.6 H Arterial Blood Base Excess 12.8 H Arterial Blood Oxygen Saturation 92.4 L Rich Test ACCEPTAB Arterial Blood Gas Puncture Site Right Radial Arterial Blood Carboxyhemoglobin 1.1 Arterial Blood Methemoglobin 0.2 Blood Gas A-a O2 Differential 120.6 H Oxyhemoglobin Percent 91.2 L Blood Gas Temperature 37.0 Blood Gas Modality NASAL CANNULA FiO2 36.0 Blood Gas Notified Whom WS Blood Gas Notified Time 10/10/2018 11:19:33 AM Medications Medication Current Medications Nicotine (Nicoderm 21 Mg/ 24hr) 1 patch DAILY TRANSDERM Last administered on 10/10/18at 09:39; Admin Dose 1 PATCH; Start 10/07/18 at 09:00 Ondansetron HCl (Zofran Inj) 4 mg Q6H PRN IV NAUSEA AND/OR VOMITING; Start 10/06/18 at 22:00 Acetaminophen (Tylenol Tab) 650 mg Q6H PRN PO MILD PAIN(1-3)OR ELEVATED TEMP; Start 10/06/18 at 22:00 Aspirin (Aspirin) 81 mg DAILY PO Last administered on 10/10/18at 08:10; Admin Dose 81 MG; Start 10/07/18 at 09:00 Atorvastatin Calcium (Lipitor) 40 mg QHS PO Last administered on 10/09/18 20:43; Admin Dose 40 MG; Start 10/07/18 at 21:00 Bisacodyl (Dulcolax Supp) 10 mg DAILY PRN [place] CONSTIPATION; Start 10/06/18 at 22:30 Al Hydrox/Mg Hydrox/Simethicone (Mag-Al Plus) 20 ml Q6H PRN PO GASTROINTESTINAL UPSET; Start 10/06/18 at 22:30 Multivitamins Therapeutic (Theragran) 1 tab DAILY PO Last administered on 10/10/18 08:10; Admin Dose 1 TAB; Start 10/07/18 at 09:00 Paroxetine HCl (Paxil) 40 mg HS PO Last administered on 10/09/18 20:43; Admin Dose 40 MG; Start 10/07/18 at 21:00 Potassium Chloride (Klor-Con 10) 10 meq BID PO Last administered on 10/10/18 08:10; Admin Dose 10 MEQ; Start 10/06/18 at 22:30 Risperidone (Risperdal) 1 mg BID PO Last administered on 10/10/18 08:10; Admin Dose 1 MG; Start 10/06/18 at 22:30 Warfarin Sodium (Coumadin) 2 mg DAILY@1700 PO Last administered on 10/09/18 17:42; Admin Dose 2 MG; Start 10/07/18 at 17:00 Nitroglycerin (Nitroglycerin (Sl Tab) 0.4 Mg) 1 tab Q5M PRN SL ANGINA; Start 10/06/18 at 22:30 Acetaminophen/ Hydrocodone Bitart ([place] (5/325)) 1 tab Q6H PRN PO MODERATE PAIN LEVEL 4-6 Last administered on 10/10/18 03:59; Admin Dose 1 TAB; Start 10/07/18 at 16:30 Pantoprazole (Protonix Tab) 40 mg DAILY@06 PO Last administered on 10/10/18 05:50; Admin Dose 40 MG; Start 10/08/18 at 06:00 Furosemide (Lasix) 40 mg BID DIURETICS IV Last administered on 10/10/18 05:50; Admin Dose 40 MG; Start 10/07/18 at 18:00 Sildenafil Citrate (Revatio) 20 mg DAILY PO Last administered on 2/12/19at 08:11; Admin Dose 20 MG; Start 10/07/18 at 17:00 Eye Lubricant (Artificial Tears Oph) 2 drop Q6H PRN BOTH EYES DRY EYES Last administered on 10/09/18at 08:42; Admin Dose 2 DROP; Start 10/08/18 at 13:00 Metoprolol Tartrate (Lopressor) 5 mg Q6 PRN IV HR above 130; Start 10/08/18 at 12:00 Ciprofloxacin HCl (Ciloxan 0.3% Oph) 1 drop BID LEFT EYE Last administered on 10/10/18at 09:39; Admin Dose 1 DROP; Start 10/09/18 at 14:00 Metoprolol Tartrate (Lopressor) 25 mg BID PO ; Start 10/10/18 at 21:00 Magnesium Sulfate 50 ml @ 25 mls/hr ONCE ONCE IVPB Last administered on 10/10/18at 12:09; Admin Dose 25 MLS/HR; Start 10/10/18 at 12:00; Stop 10/10/18 at 13:59 DANA LIVINGSTON MD Oct 10, 2018 13:17
[2018-10-10] MEDS ORDERED: ACETAZOLAMIDE 500 MG INJ IV ONE (13:30)
[2018-10-10] MEDS: WARFARIN 2 MG TAB PO SCH (17:17)
[2018-10-10] MEDS: PAROXETINE 20 MG TAB PO SCH (20:16)
[2018-10-10] MEDS: ATORVASTATIN 40 MG TAB PO SCH (20:16)
[2018-10-10] MEDS: ACETAMINOPHEN 325 MG TAB PO PRN (22:02)
[2018-10-10] MEDS: AL HYDROX/MG HYDROX/SIMETH 30 ML CUP PO PRN (22:02)
[2018-10-11] VITALS (12 sets, daily range): BP systolic 96–115; BP diastolic 54–68; PULSE 71–79; RESP 18–21
[2018-10-11] MEDS: PANTOPRAZOLE (EC) 40 MG TAB PO SCH (05:39)
[2018-10-11] MEDS: FUROSEMIDE 40 MG INJ IV SCH (05:40)
[2018-10-11] MEDS: CIPROFLOXACIN 0.3% 2.5 ML OPH LEFT EYE SCH ×2 (08:35→21:20)
[2018-10-11] MEDS: ASPIRIN 81 MG TAB PO SCH (08:36)
[2018-10-11] MEDS: MULTIVITAMINS THERAPEUTIC TAB PO SCH (08:36)
[2018-10-11] MEDS: POTASSIUM CHLORIDE (SR) 10 MEQ TAB PO SCH ×2 (08:36→21:20)
[2018-10-11] MEDS: RISPERIDONE 1 MG TAB PO SCH ×2 (08:36→21:21)
[2018-10-11] MEDS: SILDENAFIL 20 MG TAB PO SCH (08:36)
[2018-10-11] MEDS: METOPROLOL 25 MG TAB PO SCH ×2 (08:36→21:20)
[2018-10-11] MEDS: NICOTINE (21 MG/24 HR) PATCH TRANSDERM SCH (08:37)
[2018-10-11] MEDS: HYDROCODONE/APAP (5/325) TAB PO PRN (09:19)
--- NOTE | 2018-10-11 14:51 | CONS ---
Assessment/Plan Cardiology Heart Failure Type: Acute on Chronic Heart Failure Type: Diastolic Assessment/Plan Hospital Course (Demo Recall) Acute decompensated diastolic and right ventricular congestive heart failure Acute kidney injury Right ventricular systolic dysfunction Severe pulmonary hypertension Paroxysmal atrial flutter, currently sinus rhythm Hypertension Obesity Active tobacco use Psychiatric disorder SVT -Patient with improvement in shortness of breath. Continue diuretics as per n ephrology -Patient with known history of pulmonary hypertension. She is volume overloaded at the current time but improving. Repeat echocardiogram after diuresis with improvement in pulmonary pressures but still with severe pulmonary hypertension which patient has a known history of. Patient with known noncompliance with medications, low-sodium diet as well as continued smoking. Did discuss right heart cath with patient, she is currently refusing invasive procedures and requesting aggressive medical management, if no improvement, she would consider right heart cath at a later time. Given her current volume status, patient would need diuresis and to be euvolemic prior to considering right heart cath at the current time -Diuretics as per renal -If blood pressure tolerates, consider increasing frequency of sildenafil Consultation Date/Type/Reason Admit Date/Time Oct 06, 2018 at 18:33 Initial Consult Date 10/08/18 Type of Consult Cardiology Requesting Provider: DANA LIVINGSTON MD Date/Time of Note DATE: 10/11/18 TIME: 14:49 24 HR Interval Summary Free Text/Dictation Shortness of breath continues to improve. Denies palpitations, chest pain Exam/Review of Systems Vital Signs Vitals Vital Signs Date Temp Pulse Resp B/P (MAP) Pulse Ox O2 O2 Flow FiO2 Time Delivery Rate 10/11/18 78 12:24 10/11/18 98.6 19 115/62 90 11:09 (79) 10/11/18 Nasal 4.0 08:00 Cannula 10/11/18 40 01:34 Intake and Output 10/10/18 10/10/18 10/11/18 1515:00 23:00 07:00 IntakeIntake Total 50 ml 650 ml 500 ml OutputOutput Total 1300 ml 2000 ml BalanceBalance 50 ml -650 ml -1500 ml Exam Constitutional: alert, oriented (Morbidly obese, no apparent distress) Respiratory: other (Coarse breath sounds bilaterally, no wheezing) Cardiovascular: regular rate and rhythm (S1-S2 heard) Gastrointestinal: soft, non-tender, bowel sounds Extremities: edema Labs Result Diagram: 10/10/18 0730 10/11/18 0605 Results 24hrs Laboratory Tests Test 10/11/18 06:05 Prothrombin Time 18.3 H Prothrombin Time Ratio 1.4 INR International Normalized Ratio 1.51 Sodium Level 138 Potassium Level 4.3 Chloride Level 95 L Carbon Dioxide Level 34 H Anion Gap 9 # Blood Urea Nitrogen 31 H Creatinine 1.38 H Est Glomerular Filtrat Rate mL/min 47 L Glucose Level 109 Calcium Level 9.5 Medications Medications Current Medications Nicotine (Nicoderm 21 Mg/ 24hr) 1 patch DAILY TRANSDERM Last administered on 10/11/18 08:37; Admin Dose 1 PATCH; Start 10/07/18 at 09:00 Ondansetron HCl (Zofran Inj) 4 mg Q6H PRN IV NAUSEA AND/OR VOMITING Last administered on 10/10/18 22:16; Admin Dose 4 MG; Start 10/06/18 at 22:00 Acetaminophen (Tylenol Tab) 650 mg Q6H PRN PO MILD PAIN(1-3)OR ELEVATED TEMP Last administered on 10/10/18 22:02; Admin Dose 650 MG; Start 10/06/18 at 22:00 Aspirin (Aspirin) 81 mg DAILY PO Last administered on 10/11/18 08:36; Admin Dose 81 MG; Start 10/07/18 at 09:00 Atorvastatin Calcium (Lipitor) 40 mg QHS PO Last administered on 10/10/18 20:16; Admin Dose 40 MG; Start 10/07/18 at 21:00 Bisacodyl (Dulcolax Supp) 10 mg DAILY PRN [place] CONSTIPATION Last administered on 10/10/18 20:16; Admin Dose 10 MG; Start 10/06/18 at 22:30 Al Hydrox/Mg Hydrox/Simethicone (Mag-Al Plus) 20 ml Q6H PRN PO GASTROINTESTINAL UPSET Last administered on 10/10/18 22:02; Admin Dose 20 ML; Start 10/06/18 at 22:30 Multivitamins Therapeutic (Theragran) 1 tab DAILY PO Last administered on 10/11/18 08:36; Admin Dose 1 TAB; Start 10/07/18 at 09:00 Paroxetine HCl (Paxil) 40 mg HS PO Last administered on 10/10/18 20:16; Admin Dose 40 MG; Start 10/07/18 at 21:00 Potassium Chloride (Klor-Con 10) 10 meq BID PO Last administered on 10/11/18 08:36; Admin Dose 10 MEQ; Start 10/06/18 at 22:30 Risperidone (Risperdal) 1 mg BID PO Last administered on 10/11/18 08:36; Admin Dose 1 MG; Start 10/06/18 at 22:30 Warfarin Sodium (Coumadin) 2 mg DAILY@1700 PO Last administered on 10/10/18 17:17; Admin Dose 2 MG; Start 10/07/18 at 17:00 Nitroglycerin (Nitroglycerin (Sl Tab) 0.4 Mg) 1 tab Q5M PRN SL ANGINA; Start 10/06/18 at 22:30 Acetaminophen/ Hydrocodone Bitart ([place] (5/325)) 1 tab Q6H PRN PO MODERATE PAIN LEVEL 4-6 Last administered on 10/11/18 09:19; Admin Dose 1 TAB; Start 10/07/18 at 16:30 Pantoprazole (Protonix Tab) 40 mg DAILY@06 PO Last administered on 10/11/18 05:39; Admin Dose 40 MG; Start 10/08/18 at 06:00 Furosemide (Lasix) 40 mg BID DIURETICS IV Last administered on 10/11/18 05:40; Admin Dose 40 MG; Start 10/07/18 at 18:00 Sildenafil Citrate (Revatio) 20 mg DAILY PO Last administered on 10/11/18 08:36; Admin Dose 20 MG; Start 10/07/18 at 17:00 Eye Lubricant (Artificial Tears Oph) 2 drop Q6H PRN BOTH EYES DRY EYES Last administered on 10/09/18 08:42; Admin Dose 2 DROP; Start 10/08/18 at 13:00 Metoprolol Tartrate (Lopressor) 5 mg Q6 PRN IV HR above 130; Start 10/08/18 at 12:00 Ciprofloxacin HCl (Ciloxan 0.3% Oph) 1 drop BID LEFT EYE Last administered on 10/11/18 08:35; Admin Dose 1 DROP; Start 10/09/18 at 14:00 Metoprolol Tartrate (Lopressor) 25 mg BID PO Last administered on 10/11/18 08:36; Admin Dose 25 MG; Start 10/10/18 at 21:00 Mark Churchill DO Oct 11, 2018 14:51
--- NOTE | 2018-10-11 15:06 | PN ---
Date/Time of Note Date/Time of Note DATE: 10/11/18 TIME: 15:04 Assessment/Plan VTE Prophylaxis Risk score (from Ns)>0 risk: 7 SCD applied (from [facility] [place]): No SCD contraindicated: low risk/ambulating Pharmacological prophylaxis: NA/contraindicated Pharm contraindication: low risk/ambulating Lines/Catheters IV Catheter Type (from [facility]): Saline Lock Urinary Cath still in place: Yes Reason Cath still needed: urinary retention Assessment/Plan Hospital Course 57 y/o with ospital Course 1. UTI with CKD, creatinine was 2March , now 1.26>1.3 2. CHF, diastolic. acute on chronci with anasarca complicated with pul htn 3. Possible left lower extremity DVT, US showed: very limited study. The left leg veins cannot be seen. No gross sonographic evidence for deep venous thrombosis in the right leg. 4. History of paroxysmal atrial fibrillation, on Coumadin, not theraputic. 5. History of hypertension; however, currently borderline normotensive. 6. History of urinary incontinence, has song catheter now. 7. Chronic obstructive pulmonary disease. 8. Hyperlipidemia. 9. Morbid obesity. 10. Gastroesophageal reflux disease. 11. Hx of schizoaffective disorder. 12. Hyponatremia 13. Hx of polysubstance abuse 14. Thrombocytopenia 15. hx of cholecystectomy. Assessment/Plan -Decrease Lasix to 40 IV daily due to hypotension and increasing in creatinine -Recheck labs tomorrow -Hold narcotics as patient is sleepy -Decrease metoprolol dose per cardiology - ? rhc cards - cw mtp 25 tid/statin/ASA -Increase the dose of Coumadin INR is 1.4 today - CW Revatio - fu cardiac and pul recs - fluid restriction Result Diagram: 10/10/18 0730 10/11/18 0605 Results 24hrs Laboratory Tests Test 10/11/18 06:05 Prothrombin Time 18.3 H Prothrombin Time Ratio 1.4 INR International Normalized Ratio 1.51 Sodium Level 138 Potassium Level 4.3 Chloride Level 95 L Carbon Dioxide Level 34 H Anion Gap 9 # Blood Urea Nitrogen 31 H Creatinine 1.38 H Est Glomerular Filtrat Rate mL/min 47 L Glucose Level 109 Calcium Level 9.5 Subjective 24 Hr Interval Summary Free Text/Dictation Patient is a somewhat sleepy Hypotensive yesterday Net neg -2.1 L Exam/Review of Systems Exam Vitals Vital Signs Date Temp Pulse Resp B/P (MAP) Pulse Ox O2 O2 Flow FiO2 Time Delivery Rate 10/11/18 78 12:24 10/11/18 98.6 19 115/62 90 11:09 (79) 10/11/18 Nasal 4.0 08:00 Cannula 10/11/18 40 01:34 Intake and Output 10/10/18 10/10/18 10/11/18 1515:00 23:00 07:00 IntakeIntake Total 50 ml 650 ml 500 ml OutputOutput Total 1300 ml 2000 ml BalanceBalance 50 ml -650 ml -1500 ml Exam onstitutional: sleepy morbiidly obese Head: normocephalic Eyes: nl conjunctiva, nl lids ENMT: nl external ears & nose Respiratory: clear to auscultation Cardiovascular: regular rate and rhythm Extremities: edema ABD WALL EDEMA Results Results 24hrs Laboratory Tests Test 10/11/18 06:05 Prothrombin Time 18.3 H Prothrombin Time Ratio 1.4 INR International Normalized Ratio 1.51 Sodium Level 138 Potassium Level 4.3 Chloride Level 95 L Carbon Dioxide Level 34 H Anion Gap 9 # Blood Urea Nitrogen 31 H Creatinine 1.38 H Est Glomerular Filtrat Rate mL/min 47 L Glucose Level 109 Calcium Level 9.5 Medications Medication Current Medications Nicotine (Nicoderm 21 Mg/ 24hr) 1 patch DAILY TRANSDERM Last administered on 10/11/18 08:37; Admin Dose 1 PATCH; Start 10/07/18 at 09:00 Ondansetron HCl (Zofran Inj) 4 mg Q6H PRN IV NAUSEA AND/OR VOMITING Last administered on 10/10/18 22:16; Admin Dose 4 MG; Start 10/06/18 at 22:00 Acetaminophen (Tylenol Tab) 650 mg Q6H PRN PO MILD PAIN(1-3)OR ELEVATED TEMP Last administered on 10/10/18 22:02; Admin Dose 650 MG; Start 10/06/18 at 22:00 Aspirin (Aspirin) 81 mg DAILY PO Last administered on 10/11/18 08:36; Admin Dose 81 MG; Start 10/07/18 at 09:00 Atorvastatin Calcium (Lipitor) 40 mg QHS PO Last administered on 10/10/18 20:16; Admin Dose 40 MG; Start 10/07/18 at 21:00 Bisacodyl (Dulcolax Supp) 10 mg DAILY PRN [place] CONSTIPATION Last administered on 10/10/18 20:16; Admin Dose 10 MG; Start 10/06/18 at 22:30 Al Hydrox/Mg Hydrox/Simethicone (Mag-Al Plus) 20 ml Q6H PRN PO GASTROINTESTINAL UPSET Last administered on 10/10/18 22:02; Admin Dose 20 ML; Start 10/06/18 at 22:30 Multivitamins Therapeutic (Theragran) 1 tab DAILY PO Last administered on 10/11/18 08:36; Admin Dose 1 TAB; Start 10/07/18 at 09:00 Paroxetine HCl (Paxil) 40 mg HS PO Last administered on 10/10/18 20:16; Admin Dose 40 MG; Start 10/07/18 at 21:00 Potassium Chloride (Klor-Con 10) 10 meq BID PO Last administered on 10/11/18 0 8:36; Admin Dose 10 MEQ; Start 10/06/18 at 22:30 Risperidone (Risperdal) 1 mg BID PO Last administered on 10/11/18 08:36; Admin Dose 1 MG; Start 10/06/18 at 22:30 Nitroglycerin (Nitroglycerin (Sl Tab) 0.4 Mg) 1 tab Q5M PRN SL ANGINA; Start 10/06/18 at 22:30 Acetaminophen/ Hydrocodone Bitart ([place] (5/325)) 1 tab Q6H PRN PO MODERATE PAIN LEVEL 4-6 Last administered on 10/11/18 09:19; Admin Dose 1 TAB; Start 10/07/18 at 16:30 Pantoprazole (Protonix Tab) 40 mg DAILY@06 PO Last administered on 10/11/18 05:39; Admin Dose 40 MG; Start 10/08/18 at 06:00 Furosemide (Lasix) 40 mg BID DIURETICS IV Last administered on 10/11/18 05:40; Admin Dose 40 MG; Start 10/07/18 at 18:00 Sildenafil Citrate (Revatio) 20 mg DAILY PO Last administered on 10/11/18 08:36; Admin Dose 20 MG; Start 10/07/18 at 17:00 Eye Lubricant (Artificial Tears Oph) 2 drop Q6H PRN BOTH EYES DRY EYES Last administered on 2/11/19at 08:42; Admin Dose 2 DROP; Start 10/08/18 at 13:00 Metoprolol Tartrate (Lopressor) 5 mg Q6 PRN IV HR above 130; Start 10/08/18 at 12:00 Ciprofloxacin HCl (Ciloxan 0.3% Oph) 1 drop BID LEFT EYE Last administered on 10/11/18at 08:35; Admin Dose 1 DROP; Start 10/09/18 at 14:00 Metoprolol Tartrate (Lopressor) 25 mg BID PO Last administered on 10/11/18at 08:36; Admin Dose 25 MG; Start 10/10/18 at 21:00 Warfarin Sodium (Coumadin) 3 mg DAILY@1700 PO ; Start 10/11/18 at 17:00; Status UNV DANA LIVINGSTON MD Oct 11, 2018 15:06
--- NOTE | 2018-10-11 15:18 | CONS ---
Consult Date/Type/Reason Admit Date/Time Oct 06, 2018 at 18:33 Initial Consult Date 10/08/18 Type of Consult Pulmonary Requesting Provider: DANA LIVINGSTON MD Date/Time of Note DATE: 10/11/18 TIME: 15:17 Subjective Comfortable, no events Objective Vital Signs Date Temp Pulse Resp B/P (MAP) Pulse Ox O2 O2 Flow FiO2 Time Delivery Rate 10/11/18 98.9 73 20 96/54 (68) 89 15:09 10/11/18 Nasal 4.0 08:00 Cannula 10/11/18 40 01:34 Intake and Output 10/10/18 10/10/18 10/11/18 1515:00 23:00 07:00 IntakeIntake Total 50 ml 650 ml 500 ml OutputOutput Total 1300 ml 2000 ml BalanceBalance 50 ml -650 ml -1500 ml Exam GENERAL: Morbidly obese young lady comfortable at rest VITAL SIGNS: per chart NECK: Supple. No JVD or lymphadenopathy. CARDIAC EXAM: S1, S2. No added sounds or murmurs. CHEST: clear bilaterally, No added sounds, rales or wheezes ABDOMEN: Soft, nontender. No guarding or rebound. EXTREMITIES: No cyanosis, clubbing or edema. NEUROLOGIC: Generalized weakness. No focal deficits. Results/Medications Result Diagram: 10/10/18 0730 10/11/18 0605 Results 24 hrs Laboratory Tests Test 10/11/18 06:05 Prothrombin Time 18.3 H Prothrombin Time Ratio 1.4 INR International Normalized Ratio 1.51 Sodium Level 138 Potassium Level 4.3 Chloride Level 95 L Carbon Dioxide Level 34 H Anion Gap 9 # Blood Urea Nitrogen 31 H Creatinine 1.38 H Est Glomerular Filtrat Rate mL/min 47 L Glucose Level 109 Calcium Level 9.5 Medications Current Medications Nicotine (Nicoderm 21 Mg/ 24hr) 1 patch DAILY TRANSDERM Last administered on 10/11/18at 08:37; Admin Dose 1 PATCH; Start 10/07/18 at 09:00 Ondansetron HCl (Zofran Inj) 4 mg Q6H PRN IV NAUSEA AND/OR VOMITING Last administered on 10/10/18at 22:16; Admin Dose 4 MG; Start 10/06/18 at 22:00 Acetaminophen (Tylenol Tab) 650 mg Q6H PRN PO MILD PAIN(1-3)OR ELEVATED TEMP Last administered on 10/10/18 22:02; Admin Dose 650 MG; Start 10/06/18 at 22:00 Aspirin (Aspirin) 81 mg DAILY PO Last administered on 10/11/18 08:36; Admin Dose 81 MG; Start 10/07/18 at 09:00 Atorvastatin Calcium (Lipitor) 40 mg QHS PO Last administered on 10/10/18 20:16; Admin Dose 40 MG; Start 10/07/18 at 21:00 Bisacodyl (Dulcolax Supp) 10 mg DAILY PRN [place] CONSTIPATION Last administered on 10/10/18 20:16; Admin Dose 10 MG; Start 10/06/18 at 22:30 Al Hydrox/Mg Hydrox/Simethicone (Mag-Al Plus) 20 ml Q6H PRN PO GASTROINTESTINAL UPSET Last administered on 10/10/18 22:02; Admin Dose 20 ML; Start 10/06/18 at 22:30 Multivitamins Therapeutic (Theragran) 1 tab DAILY PO Last administered on 10/11/18 08:36; Admin Dose 1 TAB; Start 10/07/18 at 09:00 Paroxetine HCl (Paxil) 40 mg HS PO Last administered on 10/10/18 20:16; Admin Dose 40 MG; Start 10/07/18 at 21:00 Potassium Chloride (Klor-Con 10) 10 meq BID PO Last administered on 10/11/18 08:36; Admin Dose 10 MEQ; Start 10/06/18 at 22:30 Risperidone (Risperdal) 1 mg BID PO Last administered on 10/11/18 08:36; Admin Dose 1 MG; Start 10/06/18 at 22:30 Nitroglycerin (Nitroglycerin (Sl Tab) 0.4 Mg) 1 tab Q5M PRN SL ANGINA; Start 10/06/18 at 22:30 Pantoprazole (Protonix Tab) 40 mg DAILY@06 PO Last administered on 10/11/18 05:39; Admin Dose 40 MG; Start 10/08/18 at 06:00 Sildenafil Citrate (Revatio) 20 mg DAILY PO Last administered on 10/11/18 08:36; Admin Dose 20 MG; Start 10/07/18 at 17:00 Eye Lubricant (Artificial Tears Oph) 2 drop Q6H PRN BOTH EYES DRY EYES Last administered on 10/09/18at 08:42; Admin Dose 2 DROP; Start 10/08/18 at 13:00 Metoprolol Tartrate (Lopressor) 5 mg Q6 PRN IV HR above 130; Start 10/08/18 at 12:00 Ciprofloxacin HCl (Ciloxan 0.3% Oph) 1 drop BID LEFT EYE Last administered on 10/11/18at 08:35; Admin Dose 1 DROP; Start 10/09/18 at 14:00 Metoprolol Tartrate (Lopressor) 25 mg BID PO Last administered on 10/11/18at 08:36; Admin Dose 25 MG; Start 10/10/18 at 21:00 Warfarin Sodium (Coumadin) 3 mg DAILY@1700 PO ; Start 10/11/18 at 17:00 Furosemide (Lasix) 40 mg DAILY IV ; Start 10/12/18 at 09:00 Assessment/Plan Hospital Course (Demo Recall) IMP: 1 CTEPH: with RVSP in the 80s, 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 Acute decompensated heart failure with volume overload 3. LUMA likely 2/2 above--improved 4. History of JEANNINE/OHS 5. Afib RECS: -Continue diuresis as tolerated -Cardiac recs -For now would continue BIPAP 15/8 qhs. Outpatient sleep study -Smoking cessation counseling -Adempas not on formulary. Outpatient medication / pulmonary follow up EHSAN BINGHAM MD, [facility] Oct 11, 2018 15:18
[2018-10-11] MEDS: WARFARIN 3 MG TAB PO SCH (16:19)
[2018-10-11] MEDS: ATORVASTATIN 40 MG TAB PO SCH (21:20)
[2018-10-11] MEDS: ACETAMINOPHEN 325 MG TAB PO PRN (21:20)
[2018-10-11] MEDS: PAROXETINE 20 MG TAB PO SCH (21:21)
[2018-10-12] VITALS (13 sets, daily range): BP systolic 91–115; BP diastolic 53–65; PULSE 64–84; RESP 18–22
[2018-10-12] MEDS: ACETAMINOPHEN 325 MG TAB PO PRN ×3 (04:02→22:55)
[2018-10-12] MEDS: PANTOPRAZOLE (EC) 40 MG TAB PO SCH (06:23)
[2018-10-12] MEDS: RISPERIDONE 1 MG TAB PO SCH ×2 (08:24→20:36)
[2018-10-12] MEDS: MULTIVITAMINS THERAPEUTIC TAB PO SCH (08:24)
[2018-10-12] MEDS: CIPROFLOXACIN 0.3% 2.5 ML OPH LEFT EYE SCH ×2 (08:24→20:37)
[2018-10-12] MEDS: POTASSIUM CHLORIDE (SR) 10 MEQ TAB PO SCH ×2 (08:24→20:36)
[2018-10-12] MEDS: ASPIRIN 81 MG TAB PO SCH (08:24)
[2018-10-12] MEDS: METOPROLOL 25 MG TAB PO SCH ×2 (08:24→20:36)
[2018-10-12] MEDS: NICOTINE (21 MG/24 HR) PATCH TRANSDERM SCH (08:25)
[2018-10-12] MEDS: FUROSEMIDE 40 MG INJ IV SCH (08:25)
[2018-10-12] MEDS: SILDENAFIL 20 MG TAB PO SCH (08:29)
--- NOTE | 2018-10-12 15:51 | CONS ---
Assessment/Plan Cardiology Heart Failure Type: Acute on Chronic Heart Failure Type: Diastolic Assessment/Plan Hospital Course (Demo Recall) Acute decompensated diastolic and right ventricular congestive heart failure Acute kidney injury Right ventricular systolic dysfunction Severe pulmonary hypertension Paroxysmal atrial flutter, currently sinus rhythm Hypertension Obesity Active tobacco use Psychiatric disorder SVT -Patient with improvement in shortness of breath. Continue diuretics as per n ephrology -Patient with known history of pulmonary hypertension. She is volume overloaded at the current time but improving. Repeat echocardiogram after diuresis with improvement in pulmonary pressures but still with severe pulmonary hypertension which patient has a known history of. Patient with known noncompliance with medications, low-sodium diet as well as continued smoking. Did discuss right heart cath with patient, she is currently refusing invasive procedures and requesting aggressive medical management, if no improvement, she would consider right heart cath at a later time. -If blood pressure tolerates, consider increasing frequency of sildenafil Consultation Date/Type/Reason Admit Date/Time Oct 06, 2018 at 18:33 Initial Consult Date 10/08/18 Type of Consult Cardiology Requesting Provider: DANA LIVINGSTON MD Date/Time of Note DATE: 10/12/18 TIME: 15:50 24 HR Interval Summary Free Text/Dictation Continues to feel better, less shortness of breath. Denies palpitations or chest pain Exam/Review of Systems Vital Signs Vitals Vital Signs Date Temp Pulse Resp B/P (MAP) Pulse Ox O2 O2 Flow FiO2 Time Delivery Rate 10/12/18 80 12:00 10/12/18 97.8 22 91/53 (66) 96 Nasal 4.0 11:57 Cannula 10/12/18 40 02:07 Intake and Output 10/11/18 10/11/18 10/12/18 1515:00 23:00 07:00 IntakeIntake Total 800 ml 500 ml OutputOutput Total 1600 ml 1200 ml BalanceBalance -800 ml -700 ml Exam Constitutional: alert, oriented (No apparent distress, morbidly obese) Head: normocephalic Respiratory: other (Coarse breath sounds bilaterally, no wheezing) Cardiovascular: regular rate and rhythm (S1-S2 heard) Gastrointestinal: soft, non-tender, bowel sounds Extremities: edema Labs Result Diagram: 10/10/18 0730 10/12/18 0551 Results 24hrs Laboratory Tests Test 10/12/18 05:51 Prothrombin Time 19.4 H Prothrombin Time Ratio 1.5 INR International Normalized Ratio 1.63 Sodium Level 137 Potassium Level 4.2 Chloride Level 94 L Carbon Dioxide Level 34 H Anion Gap 9 Blood Urea Nitrogen 28 H Creatinine 1.29 H Est Glomerular Filtrat Rate mL/min 51 L Glucose Level 89 Calcium Level 9.3 Phosphorus Level 4.0 Magnesium Level 2.4 Medications Medications Current Medications Nicotine (Nicoderm 21 Mg/ 24hr) 1 patch DAILY TRANSDERM Last administered on 10/12/18 08:25; Admin Dose 1 PATCH; Start 10/07/18 at 09:00 Ondansetron HCl (Zofran Inj) 4 mg Q6H PRN IV NAUSEA AND/OR VOMITING Last administered on 10/10/18 22:16; Admin Dose 4 MG; Start 10/06/18 at 22:00 Acetaminophen (Tylenol Tab) 650 mg Q6H PRN PO MILD PAIN(1-3)OR ELEVATED TEMP Last administered on 10/12/18 13:40; Admin Dose 650 MG; Start 10/06/18 at 22:00 Aspirin (Aspirin) 81 mg DAILY PO Last administered on 10/12/18 08:24; Admin Dose 81 MG; Start 10/07/18 at 09:00 Atorvastatin Calcium (Lipitor) 40 mg QHS PO Last administered on 10/11/18 21:20; Admin Dose 40 MG; Start 10/07/18 at 21:00 Bisacodyl (Dulcolax Supp) 10 mg DAILY PRN [place] CONSTIPATION Last administered on 10/10/18 20:16; Admin Dose 10 MG; Start 10/06/18 at 22:30 Al Hydrox/Mg Hydrox/Simethicone (Mag-Al Plus) 20 ml Q6H PRN PO GASTROINTESTINAL UPSET Last administered on 10/10/18 22:02; Admin Dose 20 ML; Start 10/06/18 at 22:30 Multivitamins Therapeutic (Theragran) 1 tab DAILY PO Last administered on 10/12/18 08:24; Admin Dose 1 TAB; Start 10/07/18 at 09:00 Paroxetine HCl (Paxil) 40 mg HS PO Last administered on 10/11/18 21:21; Admin Dose 40 MG; Start 10/07/18 at 21:00 Potassium Chloride (Klor-Con 10) 10 meq BID PO Last administered on 10/12/18 08:24; Admin Dose 10 MEQ; Start 10/06/18 at 22:30 Risperidone (Risperdal) 1 mg BID PO Last administered on 10/12/18 08:24; Admin Dose 1 MG; Start 10/06/18 at 22:30 Nitroglycerin (Nitroglycerin (Sl Tab) 0.4 Mg) 1 tab Q5M PRN SL ANGINA; Start 10/06/18 at 22:30 Pantoprazole (Protonix Tab) 40 mg DAILY@06 PO Last administered on 10/12/18 06:23; Admin Dose 40 MG; Start 10/08/18 at 06:00 Sildenafil Citrate (Revatio) 20 mg DAILY PO Last administered on 10/12/18 08:29; Admin Dose 20 MG; Start 10/07/18 at 17:00 Eye Lubricant (Artificial Tears Oph) 2 drop Q6H PRN BOTH EYES DRY EYES Last administered on 10/09/18 08:42; Admin Dose 2 DROP; Start 10/08/18 at 13:00 Metoprolol Tartrate (Lopressor) 5 mg Q6 PRN IV HR above 130; Start 10/08/18 at 12:00 Ciprofloxacin HCl (Ciloxan 0.3% Oph) 1 drop BID LEFT EYE Last administered on 10/12/18 08:24; Admin Dose 1 DROP; Start 10/09/18 at 14:00 Metoprolol Tartrate (Lopressor) 25 mg BID PO Last administered on 10/12/18 08:24; Admin Dose 25 MG; Start 10/10/18 at 21:00 Warfarin Sodium (Coumadin) 3 mg DAILY@1700 PO Last administered on 10/11/18 16:19; Admin Dose 3 MG; Start 10/11/18 at 17:00 Furosemide (Lasix) 40 mg DAILY IV Last administered on 10/12/18 08:25; Admin Dose 40 MG; Start 10/12/18 at 09:00 Mark Churchill DO Oct 12, 2018 15:51
[2018-10-12] MEDS: WARFARIN 3 MG TAB PO SCH (17:10)
--- NOTE | 2018-10-12 18:02 | PN ---
Date/Time of Note Date/Time of Note DATE: 10/12/18 TIME: 18:01 Assessment/Plan VTE Prophylaxis Risk score (from Ns)>0 risk: 7 SCD applied (from [facility] [place]): No SCD contraindicated: low risk/ambulating Pharmacological prophylaxis: NA/contraindicated Pharm contraindication: low risk/ambulating Lines/Catheters IV [facility] (from [facility] Saline Lock Urinary Cath still in place: Yes Reason Cath still needed: urinary retention Assessment/Plan Hospital Course 57 y/o with ospital Course 1. UTI with CKD, creatinine was 2March , now 1.26>1.3 2. CHF, diastolic. acute on chronci with anasarca complicated with pul htn 3. Possible left lower extremity DVT, US showed: very limited study. The left leg veins cannot be seen. No gross sonographic evidence for deep venous thrombosis in the right leg. 4. History of paroxysmal atrial fibrillation, on Coumadin, not theraputic. 5. History of hypertension; however, currently borderline normotensive. 6. History of urinary incontinence, has song catheter now. 7. Chronic obstructive pulmonary disease. 8. Hyperlipidemia. 9. Morbid obesity. 10. Gastroesophageal reflux disease. 11. Hx of schizoaffective disorder. 12. Hyponatremia 13. Hx of polysubstance abuse 14. Thrombocytopenia 15. hx of cholecystectomy. Assessment/Plan -Decrease Lasix to 40 IV daily due to hypotension and increasing in creatinine -Hold narcotics as patient is sleepy -Decrease metoprolol dose per cardiology - ? rhc cards - cw mtp 25 tid/statin/ASA - c w coumadin INR 1.6 today - CW Revatio - fu cardiac and pul recs - fluid restriction Result Diagram: 10/10/18 0730 10/12/18 0551 Results 24hrs Laboratory Tests Test 10/12/18 05:51 Prothrombin Time 19.4 H Prothrombin Time Ratio 1.5 INR International Normalized Ratio 1.63 Sodium Level 137 Potassium Level 4.2 Chloride Level 94 L Carbon Dioxide Level 34 H Anion Gap 9 Blood Urea Nitrogen 28 H Creatinine 1.29 H Est Glomerular Filtrat Rate mL/min 51 L Glucose Level 89 Calcium Level 9.3 Phosphorus Level 4.0 Magnesium Level 2.4 Subjective 24 Hr Interval Summary Free Text/Dictation hypotensive Episodes neg -1.5 Exam/Review of Systems Exam Vitals Vital Signs Date Temp Pulse Resp B/P (MAP) Pulse Ox O2 O2 Flow FiO2 Time Delivery Rate 10/12/18 98.7 71 22 105/62 91 16:24 (76) 10/12/18 Nasal 4.0 11:57 Cannula 10/12/18 40 02:07 Intake and Output 10/11/18 10/11/18 10/12/18 1515:00 23:00 07:00 IntakeIntake Total 800 ml 500 ml OutputOutput Total 1600 ml 1200 ml BalanceBalance -800 ml -700 ml Exam onstitutional: sleepy morbiidly obese Head: normocephalic Eyes: nl conjunctiva, nl lids ENMT: nl external ears & nose Respiratory: clear to auscultation Cardiovascular: regular rate and rhythm Extremities: edema ABD WALL EDEMA Results Results 24hrs Laboratory Tests Test 10/12/18 05:51 Prothrombin Time 19.4 H Prothrombin Time Ratio 1.5 INR International Normalized Ratio 1.63 Sodium Level 137 Potassium Level 4.2 Chloride Level 94 L Carbon Dioxide Level 34 H Anion Gap 9 Blood Urea Nitrogen 28 H Creatinine 1.29 H Est Glomerular Filtrat Rate mL/min 51 L Glucose Level 89 Calcium Level 9.3 Phosphorus Level 4.0 Magnesium Level 2.4 Medications Medication Current Medications Nicotine (Nicoderm 21 Mg/ 24hr) 1 patch DAILY TRANSDERM Last administered on 10/12/18at 08:25; Admin Dose 1 PATCH; Start 10/07/18 at 09:00 Ondansetron HCl (Zofran Inj) 4 mg Q6H PRN IV NAUSEA AND/OR VOMITING Last administered on 10/10/18 22:16; Admin Dose 4 MG; Start 10/06/18 at 22:00 Acetaminophen (Tylenol Tab) 650 mg Q6H PRN PO MILD PAIN(1-3)OR ELEVATED TEMP Last administered on 10/12/18at 13:40; Admin Dose 650 MG; Start 10/06/18 at 22:00 Aspirin (Aspirin) 81 mg DAILY PO Last administered on 10/12/18 08:24; Admin Dose 81 MG; Start 10/07/18 at 09:00 Atorvastatin Calcium (Lipitor) 40 mg QHS PO Last administered on 10/11/18at 21:20; Admin Dose 40 MG; Start 10/07/18 at 21:00 Bisacodyl (Dulcolax Supp) 10 mg DAILY PRN [place] CONSTIPATION Last administered on 10/10/18 20:16; Admin Dose 10 MG; Start 10/06/18 at 22:30 Al Hydrox/Mg Hydrox/Simethicone (Mag-Al Plus) 20 ml Q6H PRN PO GASTROINTESTINAL UPSET Last administered on 10/10/18 22:02; Admin Dose 20 ML; Start 10/06/18 at 22:30 Multivitamins Therapeutic (Theragran) 1 tab DAILY PO Last administered on 10/12/18 08:24; Admin Dose 1 TAB; Start 10/07/18 at 09:00 Paroxetine HCl (Paxil) 40 mg HS PO Last administered on 10/11/18 21:21; Admin Dose 40 MG; Start 10/07/18 at 21:00 Potassium Chloride (Klor-Con 10) 10 meq BID PO Last administered on 10/12/18 08:24; Admin Dose 10 MEQ; Start 10/06/18 at 22:30 Risperidone (Risperdal) 1 mg BID PO Last administered on 10/12/18 08:24; Admin Dose 1 MG; Start 10/06/18 at 22:30 Nitroglycerin (Nitroglycerin (Sl Tab) 0.4 Mg) 1 tab Q5M PRN SL ANGINA; Start 10/06/18 at 22:30 Pantoprazole (Protonix Tab) 40 mg DAILY@06 PO Last administered on 10/12/18 06:23; Admin Dose 40 MG; Start 10/08/18 at 06:00 Sildenafil Citrate (Revatio) 20 mg DAILY PO Last administered on 10/12/18 08:29; Admin Dose 20 MG; Start 10/07/18 at 17:00 Eye Lubricant (Artificial Tears Oph) 2 drop Q6H PRN BOTH EYES DRY EYES Last administered on 10/09/18 08:42; Admin Dose 2 DROP; Start 10/08/18 at 13:00 Metoprolol Tartrate (Lopressor) 5 mg Q6 PRN IV HR above 130; Start 10/08/18 at 12:00 Ciprofloxacin HCl (Ciloxan 0.3% Oph) 1 drop BID LEFT EYE Last administered on 10/12/18 08:24; Admin Dose 1 DROP; Start 10/09/18 at 14:00 Metoprolol Tartrate (Lopressor) 25 mg BID PO Last administered on 10/12/18at 08:24; Admin Dose 25 MG; Start 10/10/18 at 21:00 Warfarin Sodium (Coumadin) 3 mg DAILY@1700 PO Last administered on 10/12/18at 17:10; Admin Dose 3 MG; Start 10/11/18 at 17:00 Furosemide (Lasix) 40 mg DAILY IV Last administered on 10/12/18 08:25; Admin Dose 40 MG; Start 10/12/18 at 09:00 DANA LIVINGSTON MD Oct 12, 2018 18:02
[2018-10-12] MEDS: ATORVASTATIN 40 MG TAB PO SCH (20:35)
[2018-10-12] MEDS: PAROXETINE 20 MG TAB PO SCH (20:37)
[2018-10-12] MEDS ORDERED: BISACODYL (EC) 5 MG TAB PO PRN (23:00)
[2018-10-12] MEDS: DOCUSATE SODIUM 100 MG CAP PO SCH (23:09)
[2018-10-13] VITALS (13 sets, daily range): BP systolic 99–116; BP diastolic 53–68; PULSE 69–78; RESP 16–19
[2018-10-13] MEDS: PANTOPRAZOLE (EC) 40 MG TAB PO SCH (05:36)
--- NOTE | 2018-10-13 07:27 | CONS ---
Assessment/Plan Cardiology Heart Failure Type: Acute on Chronic Heart Failure Type: Diastolic Assessment/Plan Assessment/Plan (Daily) Acute decompensated diastolic and right ventricular congestive heart failure Acute kidney injury Right ventricular systolic dysfunction Severe pulmonary hypertension Paroxysmal atrial flutter, currently sinus rhythm Hypertension Obesity Active tobacco use Psychiatric disorder SVT -Patient with improvement in shortness of breath. Continue diuretics as per nephrology -Patient with known history of pulmonary hypertension. She is volume overloaded at the current time but improving. Repeat echocardiogram after diuresis with improvement in pulmonary pressures but still with severe pulmonary hypertension which patient has a known history of. Patient with known noncompliance with medications, low-sodium diet as well as continued smoking. she is currently ref using invasive procedures and requesting aggressive medical management, if no improvement, she would consider right heart cath at a later time. -If blood pressure tolerates, consider increasing frequency of sildenafil Consultation Date/Type/Reason Admit Date/Time Oct 06, 2018 at 18:33 Initial Consult Date 10/08/18 Type of Consult Cardiology Requesting Provider: DANA LIVINGSTON MD Date/Time of Note DATE: 10/13/18 TIME: 07:26 24 HR Interval Summary Free Text/Dictation The patient with no change Exam/Review of Systems Vital Signs Vitals Vital Signs Date Temp Pulse Resp B/P (MAP) Pulse Ox O2 O2 Flow FiO2 Time Delivery Rate 10/13/18 98.9 70 16 105/59 91 07:25 (74) 10/13/18 5.0 01:17 10/13/18 40 00:22 10/12/18 Nasal 20:35 Cannula Intake and Output 10/12/18 10/12/18 10/13/18 1515:00 23:00 07:00 IntakeIntake Total 930 ml 400 ml OutputOutput Total 1500 ml 2300 ml BalanceBalance -570 ml -1900 ml Labs Result Diagram: 10/10/18 0730 10/12/18 0551 Medications Medications Current Medications Nicotine (Nicoderm 21 Mg/ 24hr) 1 patch DAILY TRANSDERM Last administered on 10/12/18at 08:25; Admin Dose 1 PATCH; Start 10/07/18 at 09:00 Ondansetron HCl (Zofran Inj) 4 mg Q6H PRN IV NAUSEA AND/OR VOMITING Last administered on 10/10/18at 22:16; Admin Dose 4 MG; Start 10/06/18 at 22:00 Acetaminophen (Tylenol Tab) 650 mg Q6H PRN PO MILD PAIN(1-3)OR ELEVATED TEMP Last administered on 10/12/18 22:55; Admin Dose 650 MG; Start 10/06/18 at 22:00 Aspirin (Aspirin) 81 mg DAILY PO Last administered on 10/12/18 08:24; Admin Dose 81 MG; Start 10/07/18 at 09:00 Atorvastatin Calcium (Lipitor) 40 mg QHS PO Last administered on 10/12/18 20:35; Admin Dose 40 MG; Start 10/07/18 at 21:00 Bisacodyl (Dulcolax Supp) 10 mg DAILY PRN [place] CONSTIPATION Last administered on 10/10/18 20:16; Admin Dose 10 MG; Start 10/06/18 at 22:30 Al Hydrox/Mg Hydrox/Simethicone (Mag-Al Plus) 20 ml Q6H PRN PO GASTROINTESTINAL UPSET Last administered on 10/10/18 22:02; Admin Dose 20 ML; Start 10/06/18 at 22:30 Multivitamins Therapeutic (Theragran) 1 tab DAILY PO Last administered on 10/12/18 08:24; Admin Dose 1 TAB; Start 10/07/18 at 09:00 Paroxetine HCl (Paxil) 40 mg HS PO Last administered on 10/12/18 20:37; Admin Dose 40 MG; Start 10/07/18 at 21:00 Potassium Chloride (Klor-Con 10) 10 meq BID PO Last administered on 10/12/18 20:36; Admin Dose 10 MEQ; Start 10/06/18 at 22:30 Risperidone (Risperdal) 1 mg BID PO Last administered on 10/12/18 20:36; Admin Dose 1 MG; Start 10/06/18 at 22:30 Nitroglycerin (Nitroglycerin (Sl Tab) 0.4 Mg) 1 tab Q5M PRN SL ANGINA; Start 10/06/18 at 22:30 Pantoprazole (Protonix Tab) 40 mg DAILY@06 PO Last administered on 10/13/18 05:36; Admin Dose 40 MG; Start 10/08/18 at 06:00 Sildenafil Citrate (Revatio) 20 mg DAILY PO Last administered on 10/12/18 08:29; Admin Dose 20 MG; Start 10/07/18 at 17:00 Eye Lubricant (Artificial Tears Oph) 2 drop Q6H PRN BOTH EYES DRY EYES Last administered on 10/09/18 08:42; Admin Dose 2 DROP; Start 10/08/18 at 13:00 Metoprolol Tartrate (Lopressor) 5 mg Q6 PRN IV HR above 130; Start 10/08/18 at 12:00 Ciprofloxacin HCl (Ciloxan 0.3% Oph) 1 drop BID LEFT EYE Last administered on 10/12/18at 20:37; Admin Dose 1 DROP; Start 10/09/18 at 14:00 Metoprolol Tartrate (Lopressor) 25 mg BID PO Last administered on 10/12/18 20:36; Admin Dose 25 MG; Start 10/10/18 at 21:00 Warfarin Sodium (Coumadin) 3 mg DAILY@1700 PO Last administered on 10/12/18 17:10; Admin Dose 3 MG; Start 10/11/18 at 17:00 Furosemide (Lasix) 40 mg DAILY IV Last administered on 10/12/18 08:25; Admin Dose 40 MG; Start 10/12/18 at 09:00 Docusate Sodium (Colace) 100 mg DAILY PO Last administered on 10/12/18 23:09; Admin Dose 100 MG; Start 10/12/18 at 23:00 Polyethylene Glycol (Miralax) 17 gm DAILY PO ; Start 10/13/18 at 09:00 Bisacodyl (Dulcolax) 10 mg DAILY PO ; Start 10/13/18 at 09:00 CONNER PITTMAN MD Oct 13, 2018 07:27
[2018-10-13] MEDS: POTASSIUM CHLORIDE (SR) 10 MEQ TAB PO SCH ×2 (08:43→20:23)
[2018-10-13] MEDS: BISACODYL (EC) 5 MG TAB PO SCH (08:43)
[2018-10-13] MEDS: MULTIVITAMINS THERAPEUTIC TAB PO SCH (08:43)
[2018-10-13] MEDS: RISPERIDONE 1 MG TAB PO SCH ×2 (08:44→20:25)
[2018-10-13] MEDS: DOCUSATE SODIUM 100 MG CAP PO SCH (08:44)
[2018-10-13] MEDS: ASPIRIN 81 MG TAB PO SCH (08:44)
[2018-10-13] MEDS: METOPROLOL 25 MG TAB PO SCH ×2 (08:45→20:24)
[2018-10-13] MEDS: FUROSEMIDE 40 MG INJ IV SCH ×2 (08:45→17:22)
[2018-10-13] MEDS: POLYETHYLENE GLYCOL 17 GM PACKET PO SCH (08:45)
[2018-10-13] MEDS: CIPROFLOXACIN 0.3% 2.5 ML OPH LEFT EYE SCH ×2 (08:46→20:25)
[2018-10-13] MEDS: SILDENAFIL 20 MG TAB PO SCH (10:10)
[2018-10-13] MEDS: NICOTINE (21 MG/24 HR) PATCH TRANSDERM SCH (11:39)
--- NOTE | 2018-10-13 13:18 | CONS ---
Consult Date/Type/Reason Admit Date/Time Oct 06, 2018 at 18:33 Initial Consult Date 10/08/18 Type of Consult Pulmonary Requesting Provider: DANA LIVINGSTON MD Date/Time of Note DATE: 10/13/18 TIME: 13:16 Subjective Comfortable, no resp distress. Objective Vital Signs Date Temp Pulse Resp B/P (MAP) Pulse Ox O2 O2 Flow FiO2 Time Delivery Rate 10/13/18 75 13:12 10/13/18 98.9 18 100/58 94 11:51 (72) 10/13/18 Nasal 4.0 07:54 Cannula 10/13/18 40 00:22 Intake and Output 10/12/18 10/12/18 10/13/18 1414:59 22:59 06:59 IntakeIntake Total 930 ml 400 ml OutputOutput Total 1500 ml 2300 ml BalanceBalance -570 ml -1900 ml Exam GENERAL: Morbidly obese young lady comfortable at rest VITAL SIGNS: per chart NECK: Supple. No JVD or lymphadenopathy. CARDIAC EXAM: S1, S2. No added sounds or murmurs. CHEST: clear bilaterally, No added sounds, rales or wheezes ABDOMEN: Soft, nontender. No guarding or rebound. EXTREMITIES: No cyanosis, clubbing or edema. NEUROLOGIC: Generalized weakness. No focal deficits. Results/Medications Result Diagram: 10/10/18 0730 10/13/18 0615 Results 24 hrs Laboratory Tests Test 10/13/18 06:15 Sodium Level 137 Potassium Level 3.7 Chloride Level 95 L Carbon Dioxide Level 33 H Anion Gap 9 Blood Urea Nitrogen 29 H Creatinine 1.25 H Est Glomerular Filtrat Rate mL/min 53 L Glucose Level 84 Calcium Level 9.3 Medications Current Medications Nicotine (Nicoderm 21 Mg/ 24hr) 1 patch DAILY TRANSDERM Last administered on 10/13/18at 11:39; Admin Dose 1 PATCH; Start 10/07/18 at 09:00 Ondansetron HCl (Zofran Inj) 4 mg Q6H PRN IV NAUSEA AND/OR VOMITING Last administered on 10/10/18at 22:16; Admin Dose 4 MG; Start 10/06/18 at 22:00 Acetaminophen (Tylenol Tab) 650 mg Q6H PRN PO MILD PAIN(1-3)OR ELEVATED TEMP Last administered on 10/12/18at 22:55; Admin Dose 650 MG; Start 10/06/18 at 22:00 Aspirin (Aspirin) 81 mg DAILY PO Last administered on 10/13/18 08:44; Admin Dose 81 MG; Start 10/07/18 at 09:00 Atorvastatin Calcium (Lipitor) 40 mg QHS PO Last administered on 10/12/18 20:35; Admin Dose 40 MG; Start 10/07/18 at 21:00 Bisacodyl (Dulcolax Supp) 10 mg DAILY PRN [place] CONSTIPATION Last administered on 10/10/18 20:16; Admin Dose 10 MG; Start 10/06/18 at 22:30 Al Hydrox/Mg Hydrox/Simethicone (Mag-Al Plus) 20 ml Q6H PRN PO GASTROINTESTINAL UPSET Last administered on 10/10/18 22:02; Admin Dose 20 ML; Start 10/06/18 at 22:30 Multivitamins Therapeutic (Theragran) 1 tab DAILY PO Last administered on 10/13/18 08:43; Admin Dose 1 TAB; Start 10/07/18 at 09:00 Paroxetine HCl (Paxil) 40 mg HS PO Last administered on 10/12/18 20:37; Admin Dose 40 MG; Start 10/07/18 at 21:00 Potassium Chloride (Klor-Con 10) 10 meq BID PO Last administered on 10/13/18 08:43; Admin Dose 10 MEQ; Start 10/06/18 at 22:30 Risperidone (Risperdal) 1 mg BID PO Last administered on 10/13/18 08:44; Admin Dose 1 MG; Start 10/06/18 at 22:30 Nitroglycerin (Nitroglycerin (Sl Tab) 0.4 Mg) 1 tab Q5M PRN SL ANGINA; Start 10/06/18 at 22:30 Pantoprazole (Protonix Tab) 40 mg DAILY@06 PO Last administered on 10/13/18 05:36; Admin Dose 40 MG; Start 10/08/18 at 06:00 Sildenafil Citrate (Revatio) 20 mg DAILY PO Last administered on 10/13/18 10:10; Admin Dose 20 MG; Start 10/07/18 at 17:00 Eye Lubricant (Artificial Tears Oph) 2 drop Q6H PRN BOTH EYES DRY EYES Last administered on 2/11/19at 08:42; Admin Dose 2 DROP; Start 10/08/18 at 13:00 Metoprolol Tartrate (Lopressor) 5 mg Q6 PRN IV HR above 130; Start 10/08/18 at 12:00 Ciprofloxacin HCl (Ciloxan 0.3% Oph) 1 drop BID LEFT EYE Last administered on 10/13/18at 08:46; Admin Dose 1 DROP; Start 10/09/18 at 14:00 Metoprolol Tartrate (Lopressor) 25 mg BID PO Last administered on 10/13/18at 08:45; Admin Dose 25 MG; Start 10/10/18 at 21:00 Warfarin Sodium (Coumadin) 3 mg DAILY@1700 PO Last administered on 10/12/18at 17:10; Admin Dose 3 MG; Start 10/11/18 at 17:00 Furosemide (Lasix) 40 mg DAILY IV Last administered on 10/13/18at 08:45; Admin Dose 40 MG; Start 10/12/18 at 09:00 Docusate Sodium (Colace) 100 mg DAILY PO Last administered on 10/13/18at 08:44; Admin Dose 100 MG; Start 10/12/18 at 23:00 Polyethylene Glycol (Miralax) 17 gm DAILY PO Last administered on 10/13/18at 08:45; Admin Dose 17 GM; Start 10/13/18 at 09:00 Bisacodyl (Dulcolax) 10 mg DAILY PO Last administered on 10/13/18at 08:43; Admin Dose 10 MG; Start 10/13/18 at 09:00 Assessment/Plan Hospital Course (Demo Recall) IMP: 1 CTEPH: with RVSP in the 80s, 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 Acute decompensated heart failure with volume overload 3. LUMA likely 2/2 above--improved 4. History of JEANNINE/OHS 5. Afib RECS: -Continue diuresis as tolerated -Cardiac recs -NIPPV -Smoking cessation counseling - [facility], [facility] Oct 13, 2018 13:18
[2018-10-13] MEDS ORDERED: WARFARIN 5 MG TAB PO ONE (14:00)
--- NOTE | 2018-10-13 14:00 | PN ---
IRINEOARABELLA 10/13/18 1400: Date/Time of Note Date/Time of Note DATE: 10/13/18 TIME: 13:54 Assessment/Plan VTE Prophylaxis [place] [facility] [place] risk: 7 SCD applied (from [facility] [place] No SCD contraindicated: DVT Pharmacological prophylaxis: warfarin tx Lines/Catheters IV [facility] [place] Urinary Cath still in place: Yes Reason Cath still needed: urinary retention Assessment/Plan Hospital Course 1. UTI with CKD, creatinine was 2March , now 1.26 2. CHF, diastolic. 3. Possible left lower extremity DVT, US showed: very limited study. The left leg veins cannot be seen. No gross sonographic evidence for deep venous thrombosis in the right leg. 4. History of paroxysmal atrial fibrillation, on Coumadin, not theraputic. 5. History of hypertension; however, currently borderline normotensive. 6. History of urinary incontinence, has song catheter now. 7. Chronic obstructive pulmonary disease. 8. Hyperlipidemia. 9. Morbid obesity. 10. Gastroesophageal reflux disease. 11. Hx of schizoaffective disorder. 12. Hyponatremia 13. Hx of polysubstance abuse 14. Thrombocytopenia 15. hx of cholecystectomy. Assessment/Plan -c/w Lasix to 40 IV daily due to hypotension and increasing in creatinine -Hold narcotics as patient is sleepy -Decrease metoprolol dose per cardiology - ? [facility] cards, pt refused - cw mtp 25 tid/statin/ASA - c w coumadin INR 1.6 today, extra dose - CW Revatio BID per cardiology increase - fu cardiac and pul recs - fluid restriction Result Diagram: 10/10/18 0730 10/13/18 0615 Results 24hrs Laboratory Tests Test 10/13/18 06:15 Sodium Level 137 Potassium Level 3.7 Chloride Level 95 L Carbon Dioxide Level 33 H Anion Gap 9 Blood Urea Nitrogen 29 H Creatinine 1.25 H Est Glomerular Filtrat Rate mL/min 53 L Glucose Level 84 Calcium Level 9.3 Subjective 24 Hr Interval Summary Constitutional: no complaints, improved Exam/Review of Systems Exam Vitals Vital Signs Date Temp Pulse Resp B/P (MAP) Pulse Ox O2 O2 Flow FiO2 Time Delivery Rate 10/13/18 75 13:12 10/13/18 98.9 18 100/58 94 11:51 (72) 10/13/18 Nasal 4.0 07:54 Cannula 10/13/18 40 00:22 Intake and Output 10/12/18 10/12/18 10/13/18 1515:00 23:00 07:00 IntakeIntake Total 930 ml 400 ml OutputOutput Total 1500 ml 2300 ml BalanceBalance -570 ml -1900 ml Exam sleepy Constitutional: alert, oriented ENMT: nl external ears & nose Neck: supple Respiratory: diminished breath sounds Cardiovascular: regular rate and rhythm Results Result Diagram: 10/10/18 0730 10/13/18 0615 Results 24hrs Laboratory Tests Test 10/13/18 06:15 Sodium Level 137 Potassium Level 3.7 Chloride Level 95 L Carbon Dioxide Level 33 H Anion Gap 9 Blood Urea Nitrogen 29 H Creatinine 1.25 H Est Glomerular Filtrat Rate mL/min 53 L Glucose Level 84 Calcium Level 9.3 Medications Medication Current Medications Nicotine (Nicoderm 21 Mg/ 24hr) 1 patch DAILY TRANSDERM Last administered on 10/13/18 11:39; Admin Dose 1 PATCH; Start 10/07/18 at 09:00 Ondansetron HCl (Zofran Inj) 4 mg Q6H PRN IV NAUSEA AND/OR VOMITING Last administered on 10/10/18 22:16; Admin Dose 4 MG; Start 10/06/18 at 22:00 Acetaminophen (Tylenol Tab) 650 mg Q6H PRN PO MILD PAIN(1-3)OR ELEVATED TEMP Last administered on 10/12/18 22:55; Admin Dose 650 MG; Start 10/06/18 at 22:00 Aspirin (Aspirin) 81 mg DAILY PO Last administered on 10/13/18 08:44; Admin Dose 81 MG; Start 10/07/18 at 09:00 Atorvastatin Calcium (Lipitor) 40 mg QHS PO Last administered on 10/12/18 20:35; Admin Dose 40 MG; Start 10/07/18 at 21:00 Bisacodyl (Dulcolax Supp) 10 mg DAILY PRN [place] CONSTIPATION Last administered on 10/10/18 20:16; Admin Dose 10 MG; Start 10/06/18 at 22:30 Al Hydrox/Mg Hydrox/Simethicone (Mag-Al Plus) 20 ml Q6H PRN PO GASTROINTESTINAL UPSET Last administered on 10/10/18 22:02; Admin Dose 20 ML; Start 10/06/18 at 22:30 Multivitamins Therapeutic (Theragran) 1 tab DAILY PO Last administered on 10/13/18 08:43; Admin Dose 1 TAB; Start 10/07/18 at 09:00 Paroxetine HCl (Paxil) 40 mg HS PO Last administered on 10/12/18 20:37; Admin Dose 40 MG; Start 10/07/18 at 21:00 Potassium Chloride (Klor-Con 10) 10 meq BID PO Last administered on 10/13/18 08:43; Admin Dose 10 MEQ; Start 10/06/18 at 22:30 Risperidone (Risperdal) 1 mg BID PO Last administered on 10/13/18 08:44; Admin Dose 1 MG; Start 10/06/18 at 22:30 Nitroglycerin (Nitroglycerin (Sl Tab) 0.4 Mg) 1 tab Q5M PRN SL ANGINA; Start 10/06/18 at 22:30 Pantoprazole (Protonix Tab) 40 mg DAILY@06 PO Last administered on 10/13/18 05:36; Admin Dose 40 MG; Start 10/08/18 at 06:00 Sildenafil Citrate (Revatio) 20 mg DAILY PO Last administered on 10/13/18 10: 10; Admin Dose 20 MG; Start 10/07/18 at 17:00 Eye Lubricant (Artificial Tears Oph) 2 drop Q6H PRN BOTH EYES DRY EYES Last administered on 10/09/18 08:42; Admin Dose 2 DROP; Start 10/08/18 at 13:00 Metoprolol Tartrate (Lopressor) 5 mg Q6 PRN IV HR above 130; Start 10/08/18 at 12:00 Ciprofloxacin HCl (Ciloxan 0.3% Oph) 1 drop BID LEFT EYE Last administered on 10/13/18 08:46; Admin Dose 1 DROP; Start 10/09/18 at 14:00 Metoprolol Tartrate (Lopressor) 25 mg BID PO Last administered on 10/13/18 08:45; Admin Dose 25 MG; Start 10/10/18 at 21:00 Warfarin Sodium (Coumadin) 3 mg DAILY@1700 PO Last administered on 10/12/18 17:10; Admin Dose 3 MG; Start 10/11/18 at 17:00 Furosemide (Lasix) 40 mg DAILY IV Last administered on 10/13/18at 08:45; Admin Dose 40 MG; Start 10/12/18 at 09:00 Docusate Sodium (Colace) 100 mg DAILY PO Last administered on 10/13/18 08:44; Admin Dose 100 MG; Start 10/12/18 at 23:00 Polyethylene Glycol (Miralax) 17 gm DAILY PO Last administered on 10/13/18 08:45; Admin Dose 17 GM; Start 10/13/18 at 09:00 Bisacodyl (Dulcolax) 10 mg DAILY PO Last administered on 10/13/18at 08:43; Admin Dose 10 MG; Start 10/13/18 at 09:00 DANA LIVINGSTON MD 10/13/18 1732: Assessment/Plan Assessment/Plan Assessment/Plan iv lasix bid seen and ecamined Result Diagram: 10/10/18 0730 10/13/18 0615 ARABELLA CABELLO Oct 13, 2018 14:00 DANA LIVINGSTON MD Oct 13, 2018 17:32
[2018-10-13] MEDS: WARFARIN 3 MG TAB PO SCH (17:22)
[2018-10-13] MEDS: ATORVASTATIN 40 MG TAB PO SCH (20:23)
[2018-10-13] MEDS: PAROXETINE 20 MG TAB PO SCH (20:25)
[2018-10-13] MEDS ORDERED: SILDENAFIL 20 MG TAB PO SCH (21:00)
[2018-10-14] VITALS (14 sets, daily range): BP systolic 97–123; BP diastolic 53–67; PULSE 61–77; RESP 16–18
[2018-10-14] MEDS: PANTOPRAZOLE (EC) 40 MG TAB PO SCH (06:09)
[2018-10-14] MEDS: FUROSEMIDE 40 MG INJ IV SCH ×2 (06:09→17:03)
[2018-10-14] MEDS: BISACODYL (EC) 5 MG TAB PO SCH (09:05)
[2018-10-14] MEDS: DOCUSATE SODIUM 100 MG CAP PO SCH (09:05)
[2018-10-14] MEDS: RISPERIDONE 1 MG TAB PO SCH ×2 (09:05→20:50)
[2018-10-14] MEDS: POLYETHYLENE GLYCOL 17 GM PACKET PO SCH (09:05)
[2018-10-14] MEDS: ASPIRIN 81 MG TAB PO SCH (09:06)
[2018-10-14] MEDS: CIPROFLOXACIN 0.3% 2.5 ML OPH LEFT EYE SCH ×2 (09:06→20:58)
[2018-10-14] MEDS: MULTIVITAMINS THERAPEUTIC TAB PO SCH (09:06)
[2018-10-14] MEDS: POTASSIUM CHLORIDE (SR) 10 MEQ TAB PO SCH ×2 (09:06→20:50)
[2018-10-14] MEDS: METOPROLOL 25 MG TAB PO SCH ×2 (09:06→20:53)
[2018-10-14] MEDS: NICOTINE (21 MG/24 HR) PATCH TRANSDERM SCH (09:07)
[2018-10-14] MEDS: SILDENAFIL 20 MG TAB PO SCH (09:13)
--- NOTE | 2018-10-14 12:38 | CONS ---
Consult Date/Type/Reason Admit Date/Time Oct 06, 2018 at 18:33 Initial Consult Date 10/08/18 Type of Consult Pulmonary Requesting Provider: DANA LIVINGSTON MD Date/Time of Note DATE: 10/14/18 TIME: 12:37 Subjective Comfortable no respiratory distress Objective Vital Signs Date Temp Pulse Resp B/P (MAP) Pulse Ox O2 O2 Flow FiO2 Time Delivery Rate 10/14/18 97.7 70 18 105/59 98 Nasal 11:24 (74) Cannula 10/14/18 4.0 08:29 10/14/18 40 03:02 Intake and Output 10/13/18 10/13/18 10/14/18 1515:00 23:00 07:00 IntakeIntake Total 1000 ml 200 ml OutputOutput Total 2050 ml 1000 ml BalanceBalance -1050 ml -800 ml Exam Morbidly obese lady GENERAL: VITAL SIGNS: per chart NECK: Supple. No JVD or lymphadenopathy. CARDIAC EXAM: S1, S2. No added sounds or murmurs. CHEST: clear bilaterally, No added sounds, rales or wheezes ABDOMEN: Soft, nontender. No guarding or rebound. EXTREMITIES: No cyanosis, clubbing or edema. NEUROLOGIC: Generalized weakness. No focal deficits. Results/Medications Result Diagram: 10/14/18 0557 10/14/18 0557 Results 24 hrs Laboratory Tests Test 10/14/18 05:57 White Blood Count 5.1 Red Blood Count 4.76 Hemoglobin 11.9 L Hematocrit 38.0 Mean Corpuscular Volume 79.8 L Mean Corpuscular Hemoglobin 25.0 L Mean Corpuscular Hemoglobin Concent 31.3 L Red Cell Distribution Width 16.9 H Platelet Count 119 L Mean Platelet Volume 10.3 Immature Granulocytes % 0.400 Neutrophils % 51.3 Lymphocytes % 21.4 Monocytes % 24.5 H Eosinophils % 1.8 Basophils % 0.6 Nucleated Red Blood Cells % 0.0 Immature Granulocytes # 0.020 Neutrophils # 2.6 Lymphocytes # 1.1 Monocytes # 1.3 H Eosinophils # 0.1 Basophils # 0.0 Nucleated Red Blood Cells # 0.0 Prothrombin Time 20.6 H Prothrombin Time Ratio 1.6 INR International Normalized Ratio 1.76 Sodium Level 138 Potassium Level 3.6 Chloride Level 98 Carbon Dioxide Level 31 Anion Gap 9 Blood Urea Nitrogen 31 H Creatinine 1.21 H Est Glomerular Filtrat Rate mL/min 55 L Glucose Level 102 Calcium Level 9.5 Medications Current Medications Nicotine (Nicoderm 21 Mg/ 24hr) 1 patch DAILY TRANSDERM Last administered on 10/14/18 09:07; Admin Dose 1 PATCH; Start 10/07/18 at 09:00 Ondansetron HCl (Zofran Inj) 4 mg Q6H PRN IV NAUSEA AND/OR VOMITING Last administered on 10/10/18 22:16; Admin Dose 4 MG; Start 10/06/18 at 22:00 Acetaminophen (Tylenol Tab) 650 mg Q6H PRN PO MILD PAIN(1-3)OR ELEVATED TEMP Last administered on 10/12/18 22:55; Admin Dose 650 MG; Start 10/06/18 at 22:00 Aspirin (Aspirin) 81 mg DAILY PO Last administered on 10/14/18 09:06; Admin Dose 81 MG; Start 10/07/18 at 09:00 Atorvastatin Calcium (Lipitor) 40 mg QHS PO Last administered on 10/13/18 20:23; Admin Dose 40 MG; Start 10/07/18 at 21:00 Bisacodyl (Dulcolax Supp) 10 mg DAILY PRN [place] CONSTIPATION Last administered on 10/10/18 20:16; Admin Dose 10 MG; Start 10/06/18 at 22:30 Al Hydrox/Mg Hydrox/Simethicone (Mag-Al Plus) 20 ml Q6H PRN PO GASTROINTESTINAL UPSET Last administered on 10/10/18 22:02; Admin Dose 20 ML; Start 10/06/18 at 22:30 Multivitamins Therapeutic (Theragran) 1 tab DAILY PO Last administered on 10/14/18 09:06; Admin Dose 1 TAB; Start 10/07/18 at 09:00 Paroxetine HCl (Paxil) 40 mg HS PO Last administered on 10/13/18 20:25; Admin Dose 40 MG; Start 10/07/18 at 21:00 Potassium Chloride (Klor-Con 10) 10 meq BID PO Last administered on 10/14/18 09:06; Admin Dose 10 MEQ; Start 10/06/18 at 22:30 Risperidone (Risperdal) 1 mg BID PO Last administered on 10/14/18 09:05; Admin Dose 1 MG; Start 10/06/18 at 22:30 Nitroglycerin (Nitroglycerin (Sl Tab) 0.4 Mg) 1 tab Q5M PRN SL ANGINA; Start 10/06/18 at 22:30 Pantoprazole (Protonix Tab) 40 mg DAILY@06 PO Last administered on 10/14/18 06:09; Admin Dose 40 MG; Start 10/08/18 at 06:00 Eye Lubricant (Artificial Tears Oph) 2 drop Q6H PRN BOTH EYES DRY EYES Last administered on 10/09/18at 08:42; Admin Dose 2 DROP; Start 10/08/18 at 13:00 Metoprolol Tartrate (Lopressor) 5 mg Q6 PRN IV HR above 130; Start 10/08/18 at 12:00 Ciprofloxacin HCl (Ciloxan 0.3% Oph) 1 drop BID LEFT EYE Last administered on 10/14/18 09:06; Admin Dose 1 DROP; Start 10/09/18 at 14:00 Metoprolol Tartrate (Lopressor) 25 mg BID PO Last administered on 10/14/18 09:06; Admin Dose 25 MG; Start 10/10/18 at 21:00 Warfarin Sodium (Coumadin) 3 mg DAILY@1700 PO Last administered on 10/13/18 17:22; Admin Dose 3 MG; Start 10/11/18 at 17:00 Docusate Sodium (Colace) 100 mg DAILY PO Last administered on 10/14/18 09:05; Admin Dose 100 MG; Start 10/12/18 at 23:00 Polyethylene Glycol (Miralax) 17 gm DAILY PO Last administered on 10/14/18 09:05; Admin Dose 17 GM; Start 10/13/18 at 09:00 Bisacodyl (Dulcolax) 10 mg DAILY PO Last administered on 10/14/18 09:05; Admin Dose 10 MG; Start 10/13/18 at 09:00 Furosemide (Lasix) 40 mg BID DIURETICS IV Last administered on 10/14/18 06:09; Admin Dose 40 MG; Start 10/13/18 at 18:00 Sildenafil Citrate (Revatio) 20 mg DAILY PO Last administered on 10/14/18 09:13; Admin Dose 20 MG; Start 10/14/18 at 09:00 Assessment/Plan Hospital Course (Demo Recall) DC planning. IMP: 1 CTEPH: with RVSP in the 80s, 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 Acute decompensated heart failure with volume overload 3. LUMA likely 2/2 above--improved 4. History of JEANNINE/OHS 5. Afib RECS: -Continue diuresis as tolerated -Cardiac recs -NIPPV -Smoking cessation counseling -DC planning. EHSAN BINGHAM MD, [facility] Oct 14, 2018 12:38
--- NOTE | 2018-10-14 13:20 | PN ---
Date/Time of Note Date/Time of Note DATE: 10/14/18 TIME: 13:18 Assessment/Plan VTE Prophylaxis [place] [facility] [place]: 9 SCD applied [place] [facility] [place] No SCD contraindicated: DVT Pharmacological prophylaxis: warfarin tx Lines/Catheters IV Catheter Type (from [facility]): Saline Lock Urinary Cath still in place: Yes Reason Cath still needed: urinary retention Assessment/Plan Hospital Course 1. UTI with CKD, creatinine was 2,March , now 1.26 2. CHF, diastolic. 3. Possible left lower extremity DVT, US showed: very limited study. The left leg veins cannot be seen. No gross sonographic evidence for deep venous thrombosis in the right leg. 4. History of paroxysmal atrial fibrillation, on Coumadin, not theraputic. 5. History of hypertension; however, currently borderline normotensive. 6. History of urinary incontinence, has song catheter now. 7. Chronic obstructive pulmonary disease. 8. Hyperlipidemia. 9. Morbid obesity. 10. Gastroesophageal reflux disease. 11. Hx of schizoaffective disorder. 12. Hyponatremia 13. Hx of polysubstance abuse 14. Thrombocytopenia 15. hx of cholecystectomy. 16. Nicotine dependence Assessment/Plan -increase Coumadin to 4 mg po daily -c/w Lasix to 40 IV BID -Hold narcotics as patient is sleepy -Decrease metoprolol dose per cardiology - ? c cards, pt refused - cw mtp 25 tid/statin/ASA - c w Coumadin INR 1.76 - CW Revatio daily due to borderline low BP - fu cardiac and pul recs - fluid restriction Result Diagram: 10/14/18 0557 10/14/18 0557 Results 24hrs Laboratory Tests Test 10/14/18 05:57 White Blood Count 5.1 Red Blood Count 4.76 Hemoglobin 11.9 L Hematocrit 38.0 Mean Corpuscular Volume 79.8 L Mean Corpuscular Hemoglobin 25.0 L Mean Corpuscular Hemoglobin Concent 31.3 L Red Cell Distribution Width 16.9 H Platelet Count 119 L Mean Platelet Volume 10.3 Immature Granulocytes % 0.400 Neutrophils % 51.3 Lymphocytes % 21.4 Monocytes % 24.5 H Eosinophils % 1.8 Basophils % 0.6 Nucleated Red Blood Cells % 0.0 Immature Granulocytes # 0.020 Neutrophils # 2.6 Lymphocytes # 1.1 Monocytes # 1.3 H Eosinophils # 0.1 Basophils # 0.0 Nucleated Red Blood Cells # 0.0 Prothrombin Time 20.6 H Prothrombin Time Ratio 1.6 INR International Normalized Ratio 1.76 Sodium Level 138 Potassium Level 3.6 Chloride Level 98 Carbon Dioxide Level 31 Anion Gap 9 Blood Urea Nitrogen 31 H Creatinine 1.21 H Est Glomerular Filtrat Rate mL/min 55 L Glucose Level 102 Calcium Level 9.5 Subjective 24 Hr Interval Summary Free Text/Dictation wants to smoke Exam/Review of Systems Exam Vitals Vital Signs Date Temp Pulse Resp B/P (MAP) Pulse Ox O2 O2 Flow FiO2 Time Delivery Rate 10/14/18 97.7 70 18 105/59 98 Nasal 11:24 (74) Cannula 10/14/18 4.0 08:29 10/14/18 40 03:02 Intake and Output 10/13/18 10/13/18 10/14/18 1515:00 23:00 07:00 IntakeIntake Total 1000 ml 200 ml OutputOutput Total 2050 ml 1000 ml BalanceBalance -1050 ml -800 ml Exam sleepy Constitutional: alert, oriented Neck: supple Respiratory: diminished breath sounds Cardiovascular: regular rate and rhythm Gastrointestinal: soft, distended Genitourinary - Female: other (song) Results Results 24hrs Laboratory Tests Test 10/14/18 05:57 White Blood Count 5.1 Red Blood Count 4.76 Hemoglobin 11.9 L Hematocrit 38.0 Mean Corpuscular Volume 79.8 L Mean Corpuscular Hemoglobin 25.0 L Mean Corpuscular Hemoglobin Concent 31.3 L Red Cell Distribution Width 16.9 H Platelet Count 119 L Mean Platelet Volume 10.3 Immature Granulocytes % 0.400 Neutrophils % 51.3 Lymphocytes % 21.4 Monocytes % 24.5 H Eosinophils % 1.8 Basophils % 0.6 Nucleated Red Blood Cells % 0.0 Immature Granulocytes # 0.020 Neutrophils # 2.6 Lymphocytes # 1.1 Monocytes # 1.3 H Eosinophils # 0.1 Basophils # 0.0 Nucleated Red Blood Cells # 0.0 Prothrombin Time 20.6 H Prothrombin Time Ratio 1.6 INR International Normalized Ratio 1.76 Sodium Level 138 Potassium Level 3.6 Chloride Level 98 Carbon Dioxide Level 31 Anion Gap 9 Blood Urea Nitrogen 31 H Creatinine 1.21 H Est Glomerular Filtrat Rate mL/min 55 L Glucose Level 102 Calcium Level 9.5 Medications Medication Current Medications Nicotine (Nicoderm 21 Mg/ 24hr) 1 patch DAILY TRANSDERM Last administered on 10/14/18 09:07; Admin Dose 1 PATCH; Start 10/07/18 at 09:00 Ondansetron HCl (Zofran Inj) 4 mg Q6H PRN IV NAUSEA AND/OR VOMITING Last administered on 10/10/18 22:16; Admin Dose 4 MG; Start 10/06/18 at 22:00 Acetaminophen (Tylenol Tab) 650 mg Q6H PRN PO MILD PAIN(1-3)OR ELEVATED TEMP Last administered on 10/12/18 22:55; Admin Dose 650 MG; Start 10/06/18 at 22:00 Aspirin (Aspirin) 81 mg DAILY PO Last administered on 10/14/18 09:06; Admin Dose 81 MG; Start 10/07/18 at 09:00 Atorvastatin Calcium (Lipitor) 40 mg QHS PO Last administered on 10/13/18 20:23; Admin Dose 40 MG; Start 10/07/18 at 21:00 Bisacodyl (Dulcolax Supp) 10 mg DAILY PRN [place] CONSTIPATION Last administered on 10/10/18 20:16; Admin Dose 10 MG; Start 10/06/18 at 22:30 Al Hydrox/Mg Hydrox/Simethicone (Mag-Al Plus) 20 ml Q6H PRN PO GASTROINTESTINAL UPSET Last administered on 10/10/18 22:02; Admin Dose 20 ML; Start 10/06/18 at 22:30 Multivitamins Therapeutic (Theragran) 1 tab DAILY PO Last administered on 10/14/18 09:06; Admin Dose 1 TAB; Start 10/07/18 at 09:00 Paroxetine HCl (Paxil) 40 mg HS PO Last administered on 10/13/18 20:25; Admin Dose 40 MG; Start 10/07/18 at 21:00 Potassium Chloride (Klor-Con 10) 10 meq BID PO Last administered on 10/14/18 09:06; Admin Dose 10 MEQ; Start 10/06/18 at 22:30 Risperidone (Risperdal) 1 mg BID PO Last administered on 10/14/18 09:05; Admin Dose 1 MG; Start 10/06/18 at 22:30 Nitroglycerin (Nitroglycerin (Sl Tab) 0.4 Mg) 1 tab Q5M PRN SL ANGINA; Start 10/06/18 at 22:30 Pantoprazole (Protonix Tab) 40 mg DAILY@06 PO Last administered on 10/14/18 06:09; Admin Dose 40 MG; Start 10/08/18 at 06:00 Eye Lubricant (Artificial Tears Oph) 2 drop Q6H PRN BOTH EYES DRY EYES Last administered on 10/09/18 08:42; Admin Dose 2 DROP; Start 10/08/18 at 13:00 Metoprolol Tartrate (Lopressor) 5 mg Q6 PRN IV HR above 130; Start 10/08/18 at 12:00 Ciprofloxacin HCl (Ciloxan 0.3% Oph) 1 drop BID LEFT EYE Last administered on 10/14/18 09:06; Admin Dose 1 DROP; Start 10/09/18 at 14:00 Metoprolol Tartrate (Lopressor) 25 mg BID PO Last administered on 10/14/18 09:06; Admin Dose 25 MG; Start 10/10/18 at 21:00 Warfarin Sodium (Coumadin) 3 mg DAILY@1700 PO Last administered on 10/13/18 17:22; Admin Dose 3 MG; Start 10/11/18 at 17:00 Docusate Sodium (Colace) 100 mg DAILY PO Last administered on 10/14/18 09:05; Admin Dose 100 MG; Start 10/12/18 at 23:00 Polyethylene Glycol (Miralax) 17 gm DAILY PO Last administered on 10/14/18 09:05; Admin Dose 17 GM; Start 10/13/18 at 09:00 Bisacodyl (Dulcolax) 10 mg DAILY PO Last administered on 10/14/18 09:05; Admin Dose 10 MG; Start 10/13/18 at 09:00 Furosemide (Lasix) 40 mg BID DIURETICS IV Last administered on 10/14/18 06:09; Admin Dose 40 MG; Start 10/13/18 at 18:00 Sildenafil Citrate (Revatio) 20 mg DAILY PO Last administered on 10/14/18 09:13; Admin Dose 20 MG; Start 10/14/18 at 09:00 ARABELLA CABELLO Oct 14, 2018 13:20
[2018-10-14] MEDS: ACETAMINOPHEN 325 MG TAB PO PRN (13:51)
[2018-10-14] MEDS: WARFARIN 2 MG TAB PO SCH (17:03)
[2018-10-14] MEDS: AL HYDROX/MG HYDROX/SIMETH 30 ML CUP PO PRN (18:29)
[2018-10-14] MEDS: PAROXETINE 20 MG TAB PO SCH (20:51)
[2018-10-14] MEDS: ATORVASTATIN 40 MG TAB PO SCH (20:51)
[2018-10-15] VITALS (12 sets, daily range): BP systolic 94–112; BP diastolic 41–62; PULSE 70–84; RESP 17–20
[2018-10-15] MEDS: PANTOPRAZOLE (EC) 40 MG TAB PO SCH (05:01)
[2018-10-15] MEDS: FUROSEMIDE 40 MG INJ IV SCH ×2 (05:01→17:26)
[2018-10-15] MEDS: POTASSIUM CHLORIDE (SR) 10 MEQ TAB PO SCH ×2 (08:29→21:11)
[2018-10-15] MEDS: ASPIRIN 81 MG TAB PO SCH (08:29)
[2018-10-15] MEDS: NICOTINE (21 MG/24 HR) PATCH TRANSDERM SCH (08:29)
[2018-10-15] MEDS: DOCUSATE SODIUM 100 MG CAP PO SCH (08:29)
[2018-10-15] MEDS: MULTIVITAMINS THERAPEUTIC TAB PO SCH (08:29)
[2018-10-15] MEDS: BISACODYL (EC) 5 MG TAB PO SCH (08:29)
[2018-10-15] MEDS: RISPERIDONE 1 MG TAB PO SCH ×3 (08:29→21:13)
[2018-10-15] MEDS: POLYETHYLENE GLYCOL 17 GM PACKET PO SCH (08:32)
[2018-10-15] MEDS: SILDENAFIL 20 MG TAB PO SCH (08:33)
[2018-10-15] MEDS: CIPROFLOXACIN 0.3% 2.5 ML OPH LEFT EYE SCH ×2 (08:33→21:13)
[2018-10-15] MEDS: METOPROLOL 25 MG TAB PO SCH ×2 (08:34→21:11)
[2018-10-15] MEDS: ACETAMINOPHEN 325 MG TAB PO PRN (08:34)
--- NOTE | 2018-10-15 15:52 | CONS ---
Consult Date/Type/Reason Admit Date/Time Oct 06, 2018 at 18:33 Initial Consult Date 10/08/18 Type of Consultation: Pulm Requesting Provider: DANA LIVINGSTON MD Date/Time of Note DATE: 10/15/18 TIME: 15:48 Subjective Cardiology follow-up progress note (covering Dr Overton) S Discussed with the staff and telemetry was reviewed. Patient remains in sinus rhythm. She denies any chest pain or pressure to me She still has shortness of breath Objective: General: Morbidly obese female no acute distress HEENT: NC/AT. pupils are equal. round. NECK: . no stridor. CV: RRR. systolic murmur; no gallop or rubs. PULM: no wheezing . GI: SOFT, NT, ND, no rebound or guarding obese Extremity:+ B/L LE edema. no clubbing. neuro: Sleeping comfortably but arousable Psych: calm and pleasant rectal: deferred : normal Objective Vitals Vital Signs Date Temp Pulse Resp B/P (MAP) Pulse Ox O2 O2 Flow FiO2 Time Delivery Rate 10/15/18 98.6 71 20 104/52 90 15:11 (69) 10/15/18 Nasal 4.0 07:36 Cannula 10/15/18 40 00:28 Intake and Output 10/14/18 10/14/18 10/15/18 1515:00 23:00 07:00 IntakeIntake Total 800 ml 600 ml OutputOutput Total 1600 ml 2300 ml BalanceBalance -800 ml -1700 ml Results/Medications Result Diagram: 10/15/18 0539 10/15/18 0539 Results 24 hrs Laboratory Tests Test 10/15/18 05:39 10/15/18 05:41 10/15/18 07:00 White Blood Count 5.7 Red Blood Count 4.76 Hemoglobin 12.1 Hematocrit 38.0 Mean Corpuscular Volume 79.8 L Mean Corpuscular Hemoglobin 25.4 L Mean Corpuscular Hemoglobin Concent 31.8 L Red Cell Distribution Width 17.2 H Platelet Count 120 L Mean Platelet Volume 10.8 H Immature Granulocytes % 0.300 Neutrophils % 71.1 Lymphocytes % 12.8 L Monocytes % 15.0 H Eosinophils % 0.3 Basophils % 0.5 Nucleated Red Blood Cells % 0.0 Immature Granulocytes # 0.020 Neutrophils # 4.1 Lymphocytes # 0.7 L Monocytes # 0.9 Eosinophils # 0.0 Basophils # 0.0 Nucleated Red Blood Cells # 0.0 Sodium Level 135 Potassium Level 3.7 Chloride Level 95 L Carbon Dioxide Level 32 H Anion Gap 8 Blood Urea Nitrogen 26 H Creatinine 1.11 H Est Glomerular Filtrat Rate mL/min > 60 Glucose Level 114 Calcium Level 9.3 Prothrombin Time 25.0 #H Prothrombin Time Ratio 2.0 INR International Normalized Ratio 2.26 Urine Color YELLOW Urine Clarity CLEAR Urine pH 7.0 Urine Specific [place] 1.006 Urine Ketones NEGATIVE Urine Nitrite NEGATIVE Urine Bilirubin NEGATIVE Urine Urobilinogen 2+ H Urine Leukocyte Esterase NEGATIVE Urine Microscopic RBC 3 Urine Microscopic WBC 1 Urine Hemoglobin 1+ H Urine Glucose NEGATIVE Urine Total Protein NEGATIVE Home Meds Reported Medications Nitroglycerin* (Nitroglycerin* SL) 0.4 Mg Tab.subl, 0.4 MG SL Q5MIN PRN for CHEST PAIN, BOTTLE 10/06/18 Magaldrate/Simethicone* (Mag-Al Plus Suspension*) 30 Ml Oral.susp, 20 ML PO Q6H PRN for GASTROINTESTINAL UPSET, ML 10/06/18 Bisacodyl* (Bisacodyl*) 10 Mg Supp, 10 MG [place] DAILY PRN for CONSTIPATION, SUPP 10/06/18 Acetaminophen* (Acetaminophen*) 650 Mg Tablet, 650 MG PO Q4 PRN for PAIN AND OR ELEVATED TEMP, #30 TAB 10/06/18 Hydrocodone/Acetaminophen (Oracle 5-325 Tablet) 1 Each Tablet, 1 EACH PO BID PRN for PAIN, TAB 10/06/18 Risperidone* (Risperidone*) 1 Mg Tablet, 1 MG PO BID, TAB 10/06/18 Paroxetine Hcl* (Paroxetine*) 40 Mg Tablet, 40 MG PO HS, TAB 10/06/18 Pantoprazole* (Protonix*) 40 Mg Tablet.dr, 40 MG PO DAILY, TAB 10/06/18 Amino Acids/Protein Hydrolys (PRO-STAT LIQUID) 30 Ml Liquid.pkt, 30 ML PO 10/06/18 Metoprolol Tartrate* (Lopressor*) 25 Mg Tab, 25 MG PO BID, #60 TAB 10/06/18 Multivitamins* (Theragran*) 1 Tab Tab, 1 TAB PO DAILY, TAB 10/06/18 Furosemide* (Furosemide*) 40 Mg/5 Ml Solution, 60 MG PO BID, #150 ML 10/06/18 Potassium Chloride* (Potassium Chloride*) 8 Meq Capsule.er, 10 MEQ PO BID, CAP 10/06/18 Warfarin Sod (Coumadin) 2 Mg Tab, 2 MG PO DAILY, TAB 10/06/18 Aspirin* (Aspirin* Chew) 81 Mg Tab.chew, 81 MG PO DAILY, TAB.CHEW 10/06/18 Atorvastatin* (Atorvastatin*) 40 Mg Tablet, 40 MG PO QHS, #30 TAB 10/06/18 [non] No Conflict Check, 200 MG IM Q 2 WEEKS 04/01/18 Medications Current Medications Nicotine (Nicoderm 21 Mg/ 24hr) 1 patch DAILY TRANSDERM Last administered on 10/15/18 08:29; Admin Dose 1 PATCH; Start 10/07/18 at 09:00 Ondansetron HCl (Zofran Inj) 4 mg Q6H PRN IV NAUSEA AND/OR VOMITING Last admini stered on 10/10/18 22:16; Admin Dose 4 MG; Start 10/06/18 at 22:00 Acetaminophen (Tylenol Tab) 650 mg Q6H PRN PO MILD PAIN(1-3)OR ELEVATED TEMP Last administered on 10/15/18 08:34; Admin Dose 650 MG; Start 10/06/18 at 22:00 Aspirin (Aspirin) 81 mg DAILY PO Last administered on 10/15/18 08:29; Admin Dose 81 MG; Start 10/07/18 at 09:00 Atorvastatin Calcium (Lipitor) 40 mg QHS PO Last administered on 10/14/18 20:51; Admin Dose 40 MG; Start 10/07/18 at 21:00 Bisacodyl (Dulcolax Supp) 10 mg DAILY PRN [place] CONSTIPATION Last administered on 10/10/18 20:16; Admin Dose 10 MG; Start 10/06/18 at 22:30 Al Hydrox/Mg Hydrox/Simethicone (Mag-Al Plus) 20 ml Q6H PRN PO GASTROINTESTINAL UPSET Last administered on 10/14/18 18:29; Admin Dose 20 ML; Start 10/06/18 at 22:30 Multivitamins Therapeutic (Theragran) 1 tab DAILY PO Last administered on 10/15/18 08:29; Admin Dose 1 TAB; Start 10/07/18 at 09:00 Paroxetine HCl (Paxil) 40 mg HS PO Last administered on 10/14/18 20:51; Admin Dose 40 MG; Start 10/07/18 at 21:00 Potassium Chloride (Klor-Con 10) 10 meq BID PO Last administered on 10/15/18 08:29; Admin Dose 10 MEQ; Start 10/06/18 at 22:30 Risperidone (Risperdal) 1 mg BID PO Last administered on 10/14/18 20:50; Admin Dose 1 MG; Start 10/06/18 at 22:30 Nitroglycerin (Nitroglycerin (Sl Tab) 0.4 Mg) 1 tab Q5M PRN SL ANGINA; Start 10/06/18 at 22:30 Pantoprazole (Protonix Tab) 40 mg DAILY@06 PO Last administered on 10/15/18 05:01; Admin Dose 40 MG; Start 10/08/18 at 06:00 Eye Lubricant (Artificial Tears Oph) 2 drop Q6H PRN BOTH EYES DRY EYES Last administered on 10/09/18 08:42; Admin Dose 2 DROP; Start 10/08/18 at 13:00 Metoprolol Tartrate (Lopressor) 5 mg Q6 PRN IV HR above 130; Start 10/08/18 at 12:00 Ciprofloxacin HCl (Ciloxan 0.3% Oph) 1 drop BID LEFT EYE Last administered on 10/15/18 08:33; Admin Dose 1 DROP; Start 10/09/18 at 14:00 Metoprolol Tartrate (Lopressor) 25 mg BID PO Last administered on 10/14/18 20:53; Admin Dose 25 MG; Start 10/10/18 at 21:00 Docusate Sodium (Colace) 100 mg DAILY PO Last administered on 10/15/18 08:29; Admin Dose 100 MG; Start 10/12/18 at 23:00 Polyethylene Glycol (Miralax) 17 gm DAILY PO Last administered on 10/15/18 08:32; Admin Dose 17 GM; Start 10/13/18 at 09:00 Bisacodyl (Dulcolax) 10 mg DAILY PO Last administered on 10/15/18 08:29; Admin Dose 10 MG; Start 10/13/18 at 09:00 Furosemide (Lasix) 40 mg BID DIURETICS IV Last administered on 2/17/19at 05:01; Admin Dose 40 MG; Start 10/13/18 at 18:00 Sildenafil Citrate (Revatio) 20 mg DAILY PO Last administered on 10/15/18at 08:33; Admin Dose 20 MG; Start 10/14/18 at 09:00 Warfarin Sodium (Coumadin) 4 mg DAILY@17 PO Last administered on 10/14/18at 17:03; Admin Dose 4 MG; Start 10/14/18 at 17:00 Assessment/Plan Hospital Course (Demo Recall) congestive heart failure Acute kidney injury Right ventricular systolic dysfunction Severe pulmonary hypertension Paroxysmal atrial flutter, currently sinus rhythm Hypertension Obesity Active tobacco use Psychiatric disorder SVT -Patient with improvement in shortness of breath. Continue diuretics as per nephrology Continue metoprolol as tolerated Telemetry monitoring Thank you for his referral. We will continue to follow along with you until Dr. Cisse returns on Tuesday ANSHU ZHENG MD [facility] ANSHU ZHENG MD Oct 15, 2018 15:52
[2018-10-15] MEDS: WARFARIN 2 MG TAB PO SCH (17:25)
--- NOTE | 2018-10-15 18:23 | PN ---
Date/Time of Note Date/Time of Note DATE: 10/15/18 TIME: 18:21 Assessment/Plan VTE Prophylaxis Risk score (from [facility] [place]0 risk: 11 SCD applied (from [facility] [place]): Yes SCD contraindicated: other Pharmacological prophylaxis: other Pharm contraindication: other Lines/Catheters IV C[facility]ter Type (from [facility] Saline Lock Urinary Cath still in place: Yes Reason Cath still needed: other (indicate) Assessment/Plan Hospital Course 1. UTI with CKD, 2. CHF, diastolic. 3. Possible left lower extremity DVT, US showed: very limited study. 4. History of paroxysmal atrial fibrillation, on Coumadin, not theraputic. 5. History of hypertension; however, currently borderline normotensive. 6. History of urinary incontinence, has song catheter now. 7. Chronic obstructive pulmonary disease. 8. Hyperlipidemia. 9. Morbid obesity. 10. Gastroesophageal reflux disease. 11. Hx of schizoaffective disorder. 12. Hyponatremia 13. Hx of polysubstance abuse 14. Thrombocytopenia 15. hx of cholecystectomy. 16. Nicotine dependence PLAN COUMADIN Result Diagram: 10/15/18 0539 10/15/18 0539 Results 24hrs Laboratory Tests Test 10/15/18 05:39 10/15/18 05:41 10/15/18 07:00 White Blood Count 5.7 Red Blood Count 4.76 Hemoglobin 12.1 Hematocrit 38.0 Mean Corpuscular Volume 79.8 L Mean Corpuscular Hemoglobin 25.4 L Mean Corpuscular Hemoglobin Concent 31.8 L Red Cell Distribution Width 17.2 H Platelet Count 120 L Mean Platelet Volume 10.8 H Immature Granulocytes % 0.300 Neutrophils % 71.1 Lymphocytes % 12.8 L Monocytes % 15.0 H Eosinophils % 0.3 Basophils % 0.5 Nucleated Red Blood Cells % 0.0 Immature Granulocytes # 0.020 Neutrophils # 4.1 Lymphocytes # 0.7 L Monocytes # 0.9 Eosinophils # 0.0 Basophils # 0.0 Nucleated Red Blood Cells # 0.0 Sodium Level 135 Potassium Level 3.7 Chloride Level 95 L Carbon Dioxide Level 32 H Anion Gap 8 Blood Urea Nitrogen 26 H Creatinine 1.11 H Est Glomerular Filtrat Rate mL/min > 60 Glucose Level 114 Calcium Level 9.3 Prothrombin Time 25.0 #H Prothrombin Time Ratio 2.0 INR International Normalized Ratio 2.26 Urine Color YELLOW Urine Clarity CLEAR Urine pH 7.0 Urine Specific [place] 1.006 Urine Ketones NEGATIVE Urine Nitrite NEGATIVE Urine Bilirubin NEGATIVE Urine Urobilinogen 2+ H Urine Leukocyte Esterase NEGATIVE Urine Microscopic RBC 3 Urine Microscopic WBC 1 Urine Hemoglobin 1+ H Urine Glucose NEGATIVE Urine Total Protein NEGATIVE Subjective 24 Hr Interval Summary Subjective hx not possible: pt critical (EDEMA+), other (NO SOB) Exam/Review of Systems Exam Vitals Vital Signs Date Temp Pulse Resp B/P (MAP) Pulse Ox O2 O2 Flow FiO2 Time Delivery Rate 10/15/18 5.0 18:17 10/15/18 72 16:00 10/15/18 98.6 20 104/52 90 15:11 (69) 10/15/18 Nasal 07:36 Cannula 10/15/18 40 00:28 Intake and Output 10/14/18 10/14/18 10/15/18 1515:00 23:00 07:00 IntakeIntake Total 800 ml 600 ml OutputOutput Total 1600 ml 2300 ml BalanceBalance -800 ml -1700 ml Neck: supple Respiratory: diminished breath sounds Cardiovascular: regular rate and rhythm Gastrointestinal: soft, bowel sounds (+) Extremities: edema (+) Results Results 24hrs Laboratory Tests Test 10/15/18 05:39 10/15/18 05:41 10/15/18 07:00 White Blood Count 5.7 Red Blood Count 4.76 Hemoglobin 12.1 Hematocrit 38.0 Mean Corpuscular Volume 79.8 L Mean Corpuscular Hemoglobin 25.4 L Mean Corpuscular Hemoglobin Concent 31.8 L Red Cell Distribution Width 17.2 H Platelet Count 120 L Mean Platelet Volume 10.8 H Immature Granulocytes % 0.300 Neutrophils % 71.1 Lymphocytes % 12.8 L Monocytes % 15.0 H Eosinophils % 0.3 Basophils % 0.5 Nucleated Red Blood Cells % 0.0 Immature Granulocytes # 0.020 Neutrophils # 4.1 Lymphocytes # 0.7 L Monocytes # 0.9 Eosinophils # 0.0 Basophils # 0.0 Nucleated Red Blood Cells # 0.0 Sodium Level 135 Potassium Level 3.7 Chloride Level 95 L Carbon Dioxide Level 32 H Anion Gap 8 Blood Urea Nitrogen 26 H Creatinine 1.11 H Est Glomerular Filtrat Rate mL/min > 60 Glucose Level 114 Calcium Level 9.3 Prothrombin Time 25.0 #H Prothrombin Time Ratio 2.0 INR International Normalized Ratio 2.26 Urine Color YELLOW Urine Clarity CLEAR Urine pH 7.0 Urine Specific [place] 1.006 Urine Ketones NEGATIVE Urine Nitrite NEGATIVE Urine Bilirubin NEGATIVE Urine Urobilinogen 2+ H Urine Leukocyte Esterase NEGATIVE Urine Microscopic RBC 3 Urine Microscopic WBC 1 Urine Hemoglobin 1+ H Urine Glucose NEGATIVE Urine Total Protein NEGATIVE Medications Medication Current Medications Nicotine (Nicoderm 21 Mg/ 24hr) 1 patch DAILY TRANSDERM Last administered on 10/15/18 08:29; Admin Dose 1 PATCH; Start 10/07/18 at 09:00 Ondansetron HCl (Zofran Inj) 4 mg Q6H PRN IV NAUSEA AND/OR VOMITING Last administered on 10/10/18 22:16; Admin Dose 4 MG; Start 10/06/18 at 22:00 Acetaminophen (Tylenol Tab) 650 mg Q6H PRN PO MILD PAIN(1-3)OR ELEVATED TEMP Last administered on 10/15/18 08:34; Admin Dose 650 MG; Start 10/06/18 at 22:00 Aspirin (Aspirin) 81 mg DAILY PO Last administered on 10/15/18 08:29; Admin Dose 81 MG; Start 10/07/18 at 09:00 Atorvastatin Calcium (Lipitor) 40 mg QHS PO Last administered on 10/14/18 20:51; Admin Dose 40 MG; Start 10/07/18 at 21:00 Bisacodyl (Dulcolax Supp) 10 mg DAILY PRN [place] CONSTIPATION Last administered on 10/10/18 20:16; Admin Dose 10 MG; Start 10/06/18 at 22:30 Al Hydrox/Mg Hydrox/Simethicone (Mag-Al Plus) 20 ml Q6H PRN PO GASTROINTESTINAL UPSET Last administered on 10/14/18 18:29; Admin Dose 20 ML; Start 10/06/18 at 22:30 Multivitamins Therapeutic (Theragran) 1 tab DAILY PO Last administered on 10/15/18 08:29; Admin Dose 1 TAB; Start 10/07/18 at 09:00 Paroxetine HCl (Paxil) 40 mg HS PO Last administered on 10/14/18 20:51; Admin Dose 40 MG; Start 10/07/18 at 21:00 Potassium Chloride (Klor-Con 10) 10 meq BID PO Last administered on 10/15/18 08:29; Admin Dose 10 MEQ; Start 10/06/18 at 22:30 Risperidone (Risperdal) 1 mg BID PO Last administered on 10/14/18at 20:50; Admin Dose 1 MG; Start 10/06/18 at 22:30 Nitroglycerin (Nitroglycerin (Sl Tab) 0.4 Mg) 1 tab Q5M PRN SL ANGINA; Start 10/06/18 at 22:30 Pantoprazole (Protonix Tab) 40 mg DAILY@06 PO Last administered on 10/15/18at 05:01; Admin Dose 40 MG; Start 10/08/18 at 06:00 Eye Lubricant (Artificial Tears Oph) 2 drop Q6H PRN BOTH EYES DRY EYES Last administered on 10/09/18 08:42; Admin Dose 2 DROP; Start 10/08/18 at 13:00 Metoprolol Tartrate (Lopressor) 5 mg Q6 PRN IV HR above 130; Start 10/08/18 at 12:00 Ciprofloxacin HCl (Ciloxan 0.3% Oph) 1 drop BID LEFT EYE Last administered on 10/15/18 08:33; Admin Dose 1 DROP; Start 10/09/18 at 14:00 Metoprolol Tartrate (Lopressor) 25 mg BID PO Last administered on 10/14/18 20:53; Admin Dose 25 MG; Start 10/10/18 at 21:00 Docusate Sodium (Colace) 100 mg DAILY PO Last administered on 10/15/18 08:29; Admin Dose 100 MG; Start 10/12/18 at 23:00 Polyethylene Glycol (Miralax) 17 gm DAILY PO Last administered on 10/15/18 08: 32; Admin Dose 17 GM; Start 10/13/18 at 09:00 Bisacodyl (Dulcolax) 10 mg DAILY PO Last administered on 10/15/18 08:29; Admin Dose 10 MG; Start 10/13/18 at 09:00 Furosemide (Lasix) 40 mg BID DIURETICS IV Last administered on 10/15/18 17:26; Admin Dose 40 MG; Start 10/13/18 at 18:00 Sildenafil Citrate (Revatio) 20 mg DAILY PO Last administered on 10/15/18 08:33; Admin Dose 20 MG; Start 10/14/18 at 09:00 Warfarin Sodium (Coumadin) 4 mg DAILY@17 PO Last administered on 2/17/19at 17:25; Admin Dose 4 MG; Start 10/14/18 at 17:00 DRU SULLIVAN MD Oct 15, 2018 18:23
[2018-10-15] MEDS: ATORVASTATIN 40 MG TAB PO SCH (21:13)
[2018-10-15] MEDS: PAROXETINE 20 MG TAB PO SCH (21:13)
[2018-10-15] MEDS ORDERED: VITAMIN A & D 5 GM OINT PACKET TOP ONE (21:14)
[2018-10-16] VITALS (11 sets, daily range): BP systolic 99–120; BP diastolic 55–68; PULSE 70–87; RESP 18–22
[2018-10-16] MEDS: FUROSEMIDE 40 MG INJ IV SCH ×2 (06:54→17:23)
[2018-10-16] MEDS: PANTOPRAZOLE (EC) 40 MG TAB PO SCH (06:54)
--- NOTE | 2018-10-16 08:02 | CONS ---
Assessment/Plan Cardiology Heart Failure Type: Acute on Chronic Heart Failure Type: Diastolic Assessment/Plan Assessment/Plan (Daily) congestive heart failure Acute kidney injury Right ventricular systolic dysfunction Severe pulmonary hypertension Paroxysmal atrial flutter, currently sinus rhythm Hypertension Obesity Active tobacco use Psychiatric disorder SVT -Patient with improvement in shortness of breath. Continue diuretics as per nephrology Continue metoprolol as tolerated Telemetry monitoring Consultation Date/Type/Reason Admit Date/Time Oct 06, 2018 at 18:33 Initial Consult Date 10/08/18 Type of Consult Cardiology Requesting Provider: DANA LIVINGSTON MD Date/Time of Note DATE: 10/16/18 TIME: 08:02 24 HR Interval Summary Free Text/Dictation the patient wtih no change Exam/Review of Systems Vital Signs Vitals Vital Signs Date Temp Pulse Resp B/P (MAP) Pulse Ox O2 O2 Flow FiO2 Time Delivery Rate 10/16/18 Nasal 5.0 07:31 Cannula 10/16/18 98.0 82 22 120/63 92 07:24 (82) 10/16/18 33 04:32 Intake and Output 10/15/18 10/15/18 10/16/18 1515:00 23:00 07:00 IntakeIntake Total 600 ml 575 ml OutputOutput Total 1550 ml 3000 ml BalanceBalance -950 ml -2425 ml Labs Result Diagram: 10/15/18 0539 10/15/18 0539 Medications Medications Current Medications Nicotine (Nicoderm 21 Mg/ 24hr) 1 patch DAILY TRANSDERM Last administered on 10/15/18at 08:29; Admin Dose 1 PATCH; Start 10/07/18 at 09:00 Ondansetron HCl (Zofran Inj) 4 mg Q6H PRN IV NAUSEA AND/OR VOMITING Last administered on 10/10/18at 22:16; Admin Dose 4 MG; Start 10/06/18 at 22:00 Acetaminophen (Tylenol Tab) 650 mg Q6H PRN PO MILD PAIN(1-3)OR ELEVATED TEMP Last administered on 10/15/18at 08:34; Admin Dose 650 MG; Start 10/06/18 at 22:00 Aspirin (Aspirin) 81 mg DAILY PO Last administered on 10/15/18at 08:29; Admin Dose 81 MG; Start 10/07/18 at 09:00 Atorvastatin Calcium (Lipitor) 40 mg QHS PO Last administered on 10/15/18 21:13; Admin Dose 40 MG; Start 10/07/18 at 21:00 Bisacodyl (Dulcolax Supp) 10 mg DAILY PRN [place] CONSTIPATION Last administered on 10/10/18 20:16; Admin Dose 10 MG; Start 10/06/18 at 22:30 Al Hydrox/Mg Hydrox/Simethicone (Mag-Al Plus) 20 ml Q6H PRN PO GASTROINTESTINAL UPSET Last administered on 10/14/18 18:29; Admin Dose 20 ML; Start 10/06/18 at 22:30 Multivitamins Therapeutic (Theragran) 1 tab DAILY PO Last administered on 10/15/18 08:29; Admin Dose 1 TAB; Start 10/07/18 at 09:00 Paroxetine HCl (Paxil) 40 mg HS PO Last administered on 10/15/18 21:13; Admin Dose 40 MG; Start 10/07/18 at 21:00 Potassium Chloride (Klor-Con 10) 10 meq BID PO Last administered on 10/15/18 21:11; Admin Dose 10 MEQ; Start 10/06/18 at 22:30 Risperidone (Risperdal) 1 mg BID PO Last administered on 10/15/18 21:13; Admin Dose 1 MG; Start 10/06/18 at 22:30 Nitroglycerin (Nitroglycerin (Sl Tab) 0.4 Mg) 1 tab Q5M PRN SL ANGINA; Start 10/06/18 at 22:30 Pantoprazole (Protonix Tab) 40 mg DAILY@06 PO Last administered on 10/16/18 06:54; Admin Dose 40 MG; Start 10/08/18 at 06:00 Eye Lubricant (Artificial Tears Oph) 2 drop Q6H PRN BOTH EYES DRY EYES Last administered on 10/09/18 08:42; Admin Dose 2 DROP; Start 10/08/18 at 13:00 Metoprolol Tartrate (Lopressor) 5 mg Q6 PRN IV HR above 130; Start 10/08/18 at 12:00 Ciprofloxacin HCl (Ciloxan 0.3% Oph) 1 drop BID LEFT EYE Last administered on 10/15/18 21:13; Admin Dose 1 DROP; Start 10/09/18 at 14:00 Metoprolol Tartrate (Lopressor) 25 mg BID PO Last administered on 10/15/18 21:11; Admin Dose 25 MG; Start 10/10/18 at 21:00 Docusate Sodium (Colace) 100 mg DAILY PO Last administered on 10/15/18 08:29; Admin Dose 100 MG; Start 10/12/18 at 23:00 Polyethylene Glycol (Miralax) 17 gm DAILY PO Last administered on 10/15/18 08:32; Admin Dose 17 GM; Start 10/13/18 at 09:00 Bisacodyl (Dulcolax) 10 mg DAILY PO Last administered on 10/15/18 08:29; Admin Dose 10 MG; Start 10/13/18 at 09:00 Furosemide (Lasix) 40 mg BID DIURETICS IV Last administered on 10/16/18 06:54; Admin Dose 40 MG; Start 10/13/18 at 18:00 Sildenafil Citrate (Revatio) 20 mg DAILY PO Last administered on 10/15/18 08:33; Admin Dose 20 MG; Start 10/14/18 at 09:00 Warfarin Sodium (Coumadin) 4 mg DAILY@17 PO Last administered on 10/15/18 17: 25; Admin Dose 4 MG; Start 10/14/18 at 17:00 CONNER PITTMAN MD Oct 16, 2018 08:02
[2018-10-16] MEDS: DOCUSATE SODIUM 100 MG CAP PO SCH (08:37)
[2018-10-16] MEDS: BISACODYL (EC) 5 MG TAB PO SCH (08:37)
[2018-10-16] MEDS: POLYETHYLENE GLYCOL 17 GM PACKET PO SCH (08:37)
[2018-10-16] MEDS: SILDENAFIL 20 MG TAB PO SCH (08:38)
[2018-10-16] MEDS: ASPIRIN 81 MG TAB PO SCH (08:38)
[2018-10-16] MEDS: RISPERIDONE 1 MG TAB PO SCH ×2 (08:38→21:02)
[2018-10-16] MEDS: METOPROLOL 25 MG TAB PO SCH ×2 (08:38→21:04)
[2018-10-16] MEDS: POTASSIUM CHLORIDE (SR) 10 MEQ TAB PO SCH ×2 (08:38→21:02)
[2018-10-16] MEDS: MULTIVITAMINS THERAPEUTIC TAB PO SCH (08:38)
[2018-10-16] MEDS: CIPROFLOXACIN 0.3% 2.5 ML OPH LEFT EYE SCH ×2 (08:39→21:05)
[2018-10-16] MEDS: NICOTINE (21 MG/24 HR) PATCH TRANSDERM SCH (08:39)
--- NOTE | 2018-10-16 12:39 | PN ---
Date/Time of Note Date/Time of Note DATE: 10/16/18 TIME: 12:35 Assessment/Plan VTE Prophylaxis Risk score (from Ns)>0 risk: 10 [place] [facility] [place] contraindicated: low risk/ambulating Pharmacological prophylaxis: NA/contraindicated Pharm contraindication: low risk/ambulating Lines/Catheters IV Catheter Type (from [facility] [place] Urinary Cath still in place: Yes Reason Cath still needed: urinary retention Assessment/Plan Hospital Course 57 y/o with ospital Course 1. UTI with CKD, creatinine was 2,March , now 1.26>1.3 2. CHF, diastolic. acute on chronci with anasarca complicated with pul htn 3. Possible left lower extremity DVT, US showed: very limited study. The left leg veins cannot be seen. No gross sonographic evidence for deep venous thrombosis in the right leg. 4. History of paroxysmal atrial fibrillation, on Coumadin, not theraputic. 5. History of hypertension; however, currently borderline normotensive. 6. History of urinary incontinence, has song catheter now. 7. Chronic obstructive pulmonary disease. 8. Hyperlipidemia. 9. Morbid obesity. 10. Gastroesophageal reflux disease. 11. Hx of schizoaffective disorder. 12. Hyponatremia 13. Hx of polysubstance abuse 14. Thrombocytopenia 15. hx of cholecystectomy. Assessment/Plan -iv lasix 50 bid 185 lbs>179 - ? rhc cards - cw mtp 25 BID d/statin/ASA - c w coumadin INR 2.0 today - CW Revatio - fu cardiac and pul recs - fluid restriction -PT Check with cards if they are not planning on doing intervention patient will likely go back sniff soon Result Diagram: 10/15/18 0539 10/15/18 0539 Subjective 24 Hr Interval Summary Free Text/Dictation Net neg -3.3 L Exam/Review of Systems Exam Vitals Vital Signs Date Temp Pulse Resp B/P (MAP) Pulse Ox O2 O2 Flow FiO2 Time Delivery Rate 10/16/18 99.5 78 22 99/58 (72) 91 Nasal 3.0 11:41 Cannula 10/16/18 33 04:32 Intake and Output 10/15/18 10/15/18 10/16/18 1515:00 23:00 07:00 IntakeIntake Total 600 ml 575 ml OutputOutput Total 1550 ml 3000 ml BalanceBalance -950 ml -2425 ml Exam onstitutional: sleepy morbiidly obese Head: normocephalic Eyes: nl conjunctiva, nl lids ENMT: nl external ears & nose Respiratory: clear to auscultation Cardiovascular: regular rate and rhythm Extremities: edema ABD WALL EDEMA leg edema improved Medications Medication Current Medications Nicotine (Nicoderm 21 Mg/ 24hr) 1 patch DAILY TRANSDERM Last administered on 10/16/18 08:39; Admin Dose 1 PATCH; Start 10/07/18 at 09:00 Ondansetron HCl (Zofran Inj) 4 mg Q6H PRN IV NAUSEA AND/OR VOMITING Last administered on 10/10/18 22:16; Admin Dose 4 MG; Start 10/06/18 at 22:00 Acetaminophen (Tylenol Tab) 650 mg Q6H PRN PO MILD PAIN(1-3)OR ELEVATED TEMP Last administered on 10/15/18 08:34; Admin Dose 650 MG; Start 10/06/18 at 22:00 Aspirin (Aspirin) 81 mg DAILY PO Last administered on 10/16/18 08:38; Admin Dose 81 MG; Start 10/07/18 at 09:00 Atorvastatin Calcium (Lipitor) 40 mg QHS PO Last administered on 10/15/18 21:13; Admin Dose 40 MG; Start 10/07/18 at 21:00 Bisacodyl (Dulcolax Supp) 10 mg DAILY PRN [place] CONSTIPATION Last administered on 10/10/18 20:16; Admin Dose 10 MG; Start 10/06/18 at 22:30 Al Hydrox/Mg Hydrox/Simethicone (Mag-Al Plus) 20 ml Q6H PRN PO GASTROINTESTINAL UPSET Last administered on 10/14/18 18:29; Admin Dose 20 ML; Start 10/06/18 at 22:30 Multivitamins Therapeutic (Theragran) 1 tab DAILY PO Last administered on 10/16/18 08:38; Admin Dose 1 TAB; Start 10/07/18 at 09:00 Paroxetine HCl (Paxil) 40 mg HS PO Last administered on 10/15/18 21:13; Admin Dose 40 MG; Start 10/07/18 at 21:00 Potassium Chloride (Klor-Con 10) 10 meq BID PO Last administered on 10/16/18 08:38; Admin Dose 10 MEQ; Start 10/06/18 at 22:30 Risperidone (Risperdal) 1 mg BID PO Last administered on 10/16/18 08:38; Admin Dose 1 MG; Start 10/06/18 at 22:30 Nitroglycerin (Nitroglycerin (Sl Tab) 0.4 Mg) 1 tab Q5M PRN SL ANGINA; Start 10/06/18 at 22:30 Pantoprazole (Protonix Tab) 40 mg DAILY@06 PO Last administered on 10/16/18 06:54; Admin Dose 40 MG; Start 10/08/18 at 06:00 Eye Lubricant (Artificial Tears Oph) 2 drop Q6H PRN BOTH EYES DRY EYES Last administered on 10/09/18 08:42; Admin Dose 2 DROP; Start 10/08/18 at 13:00 Metoprolol Tartrate (Lopressor) 5 mg Q6 PRN IV HR above 130; Start 10/08/18 at 12:00 Ciprofloxacin HCl (Ciloxan 0.3% Oph) 1 drop BID LEFT EYE Last administered on 10/16/18 08:39; Admin Dose 1 DROP; Start 10/09/18 at 14:00 Metoprolol Tartrate (Lopressor) 25 mg BID PO Last administered on 10/16/18 08:38; Admin Dose 25 MG; Start 10/10/18 at 21:00 Docusate Sodium (Colace) 100 mg DAILY PO Last administered on 10/15/18 08:29; Admin Dose 100 MG; Start 10/12/18 at 23:00 Polyethylene Glycol (Miralax) 17 gm DAILY PO Last administered on 10/15/18 08:32; Admin Dose 17 GM; Start 10/13/18 at 09:00 Bisacodyl (Dulcolax) 10 mg DAILY PO Last administered on 10/15/18 08:29; Admin Dose 10 MG; Start 10/13/18 at 09:00 Furosemide (Lasix) 40 mg BID DIURETICS IV Last administered on 10/16/18 06:54; Admin Dose 40 MG; Start 10/13/18 at 18:00 Sildenafil Citrate (Revatio) 20 mg DAILY PO Last administered on 10/16/18 08:38; Admin Dose 20 MG; Start 10/14/18 at 09:00 Warfarin Sodium (Coumadin) 4 mg DAILY@17 PO Last administered on 10/15/18at 17:25; Admin Dose 4 MG; Start 10/14/18 at 17:00 DANA LIVINGSTON MD Oct 16, 2018 12:39
--- NOTE | 2018-10-16 15:33 | CONS ---
Consult Date/Type/Reason Admit Date/Time Oct 06, 2018 at 18:33 Initial Consult Date 10/08/18 Type of Consult Pulmonary Requesting Provider: DANA ILVINGSTON MD Date/Time of Note DATE: 10/16/18 TIME: 15:32 Subjective Patient complaining of too much pressure on bilevel settings Objective Vital Signs Date Temp Pulse Resp B/P (MAP) Pulse Ox O2 O2 Flow FiO2 Time Delivery Rate 10/16/18 79 12:00 10/16/18 99.5 22 99/58 (72) 91 Nasal 3.0 11:41 Cannula 10/16/18 33 04:32 Intake and Output 10/15/18 10/15/18 10/16/18 1515:00 23:00 07:00 IntakeIntake Total 600 ml 575 ml OutputOutput Total 1550 ml 3000 ml BalanceBalance -950 ml -2425 ml Exam Morbidly obese lady GENERAL: VITAL SIGNS: per chart NECK: Supple. No JVD or lymphadenopathy. CARDIAC EXAM: S1, S2. No added sounds or murmurs. CHEST: clear bilaterally, No added sounds, rales or wheezes ABDOMEN: Soft, nontender. No guarding or rebound. EXTREMITIES: No cyanosis, clubbing or edema. NEUROLOGIC: Generalized weakness. No focal deficits. Vent Setting Fraction of Inspired Oxygen pe: 33 Results/Medications Result Diagram: 10/15/18 0539 10/15/18 0539 Medications Current Medications Nicotine (Nicoderm 21 Mg/ 24hr) 1 patch DAILY TRANSDERM Last administered on 10/16/18 08:39; Admin Dose 1 PATCH; Start 10/07/18 at 09:00 Ondansetron HCl (Zofran Inj) 4 mg Q6H PRN IV NAUSEA AND/OR VOMITING Last admi nistered on 10/10/18at 22:16; Admin Dose 4 MG; Start 10/06/18 at 22:00 Acetaminophen (Tylenol Tab) 650 mg Q6H PRN PO MILD PAIN(1-3)OR ELEVATED TEMP Last administered on 10/15/18at 08:34; Admin Dose 650 MG; Start 10/06/18 at 22:00 Aspirin (Aspirin) 81 mg DAILY PO Last administered on 10/16/18 08:38; Admin Dose 81 MG; Start 10/07/18 at 09:00 Atorvastatin Calcium (Lipitor) 40 mg QHS PO Last administered on 10/15/18 21:13; Admin Dose 40 MG; Start 10/07/18 at 21:00 Bisacodyl (Dulcolax Supp) 10 mg DAILY PRN [place] CONSTIPATION Last administered on 10/10/18 20:16; Admin Dose 10 MG; Start 10/06/18 at 22:30 Al Hydrox/Mg Hydrox/Simethicone (Mag-Al Plus) 20 ml Q6H PRN PO GASTROINTESTINAL UPSET Last administered on 10/14/18 18:29; Admin Dose 20 ML; Start 10/06/18 at 22:30 Multivitamins Therapeutic (Theragran) 1 tab DAILY PO Last administered on 10/16/18 08:38; Admin Dose 1 TAB; Start 10/07/18 at 09:00 Paroxetine HCl (Paxil) 40 mg HS PO Last administered on 10/15/18 21:13; Admin Dose 40 MG; Start 10/07/18 at 21:00 Potassium Chloride (Klor-Con 10) 10 meq BID PO Last administered on 10/16/18 08:38; Admin Dose 10 MEQ; Start 10/06/18 at 22:30 Risperidone (Risperdal) 1 mg BID PO Last administered on 10/16/18 08:38; Admin Dose 1 MG; Start 10/06/18 at 22:30 Nitroglycerin (Nitroglycerin (Sl Tab) 0.4 Mg) 1 tab Q5M PRN SL ANGINA; Start 10/06/18 at 22:30 Pantoprazole (Protonix Tab) 40 mg DAILY@06 PO Last administered on 10/16/18 06:54; Admin Dose 40 MG; Start 10/08/18 at 06:00 Eye Lubricant (Artificial Tears Oph) 2 drop Q6H PRN BOTH EYES DRY EYES Last administered on 10/09/18 08:42; Admin Dose 2 DROP; Start 10/08/18 at 13:00 Metoprolol Tartrate (Lopressor) 5 mg Q6 PRN IV HR above 130; Start 10/08/18 at 12:00 Ciprofloxacin HCl (Ciloxan 0.3% Oph) 1 drop BID LEFT EYE Last administered on 10/16/18 08:39; Admin Dose 1 DROP; Start 10/09/18 at 14:00 Metoprolol Tartrate (Lopressor) 25 mg BID PO Last administered on 10/16/18 08:38; Admin Dose 25 MG; Start 10/10/18 at 21:00 Docusate Sodium (Colace) 100 mg DAILY PO Last administered on 10/15/18 08:29; Admin Dose 100 MG; Start 10/12/18 at 23:00 Polyethylene Glycol (Miralax) 17 gm DAILY PO Last administered on 10/15/18 08:32; Admin Dose 17 GM; Start 10/13/18 at 09:00 Bisacodyl (Dulcolax) 10 mg DAILY PO Last administered on 10/15/18 08:29; Admin Dose 10 MG; Start 10/13/18 at 09:00 Furosemide (Lasix) 40 mg BID DIURETICS IV Last administered on 10/16/18 06:54; Admin Dose 40 MG; Start 10/13/18 at 18:00 Sildenafil Citrate (Revatio) 20 mg DAILY PO Last administered on 10/16/18 08:38; Admin Dose 20 MG; Start 10/14/18 at 09:00 Warfarin Sodium (Coumadin) 4 mg DAILY@17 PO Last administered on 10/15/18 17:25; Admin Dose 4 MG; Start 10/14/18 at 17:00 Assessment/Plan Hospital Course (Demo Recall) DC planning. IMP: 1 CTEPH: with RVSP in the 80s, 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 Acute decompensated heart failure with volume overload 3. LUMA likely 2/2 above--improved 4. History of JEANNINE/OHS 5. Afib RECS: -Continue diuresis as tolerated -Cardiac recs -NIPPV decrease pressures -Smoking cessation counseling -DC planning. EHSAN BINGHAM MD, [facility] Oct 16, 2018 15:33
[2018-10-16] MEDS: WARFARIN 2 MG TAB PO SCH (17:23)
[2018-10-16] MEDS: ACETAMINOPHEN 325 MG TAB PO PRN (21:01)
[2018-10-16] MEDS: ATORVASTATIN 40 MG TAB PO SCH (21:02)
[2018-10-16] MEDS: PAROXETINE 20 MG TAB PO SCH (21:02)
[2018-10-17] VITALS (11 sets, daily range): BP systolic 112–124; BP diastolic 58–74; PULSE 70–79; RESP 17–20
[2018-10-17] MEDS: ACETAMINOPHEN 325 MG TAB PO PRN (05:06)
[2018-10-17] MEDS: PANTOPRAZOLE (EC) 40 MG TAB PO SCH (05:07)
[2018-10-17] MEDS: FUROSEMIDE 40 MG INJ IV SCH ×2 (05:10→17:20)
--- NOTE | 2018-10-17 07:54 | CONS ---
Assessment/Plan Cardiology Heart Failure Type: Acute on Chronic Heart Failure Type: Diastolic Assessment/Plan Assessment/Plan (Daily) Congestive heart failure Acute kidney injury Right ventricular systolic dysfunction Severe pulmonary hypertension Paroxysmal atrial flutter, currently sinus rhythm Hypertension Obesity Active tobacco use Psychiatric disorder SVT -Patient with improvement in shortness of breath. Continue diuretics as per nephrology Continue metoprolol as tolerated Continue sildenafil On warfarin Consultation Date/Type/Reason Admit Date/Time Oct 06, 2018 at 18:33 Initial Consult Date 10/08/18 Type of Consult Cardiology Requesting Provider: DANA LIVINGSTON MD Date/Time of Note DATE: 10/17/18 TIME: 07:53 24 HR Interval Summary Free Text/Dictation The patient with no change Exam/Review of Systems Vital Signs Vitals Vital Signs Date Temp Pulse Resp B/P (MAP) Pulse Ox O2 O2 Flow FiO2 Time Delivery Rate 10/17/18 98.2 70 18 117/68 93 Nasal 07:31 (84) Cannula 10/17/18 5.0 04:27 10/17/18 40 01:29 Intake and Output 10/16/18 10/16/18 10/17/18 1515:00 23:00 07:00 IntakeIntake Total 650 ml 300 ml OutputOutput Total 1200 ml 700 ml BalanceBalance -550 ml -400 ml Labs Result Diagram: 10/15/1853810/15/1839 Results 24hrs Laboratory Tests Test 10/17/18 06:06 Prothrombin Time 27.0 H Prothrombin Time Ratio 2.1 INR International Normalized Ratio 2.49 Medications Medications Current Medications Nicotine (Nicoderm 21 Mg/ 24hr) 1 patch DAILY TRANSDERM Last administered on 10/16/18at 08:39; Admin Dose 1 PATCH; Start 10/07/18 at 09:00 Ondansetron HCl (Zofran Inj) 4 mg Q6H PRN IV NAUSEA AND/OR VOMITING Last administered on 10/10/18 22:16; Admin Dose 4 MG; Start 10/06/18 at 22:00 Acetaminophen (Tylenol Tab) 650 mg Q6H PRN PO MILD PAIN(1-3)OR ELEVATED TEMP Last administered on 10/17/18at 05:06; Admin Dose 650 MG; Start 10/06/18 at 22:00 Aspirin (Aspirin) 81 mg DAILY PO Last administered on 10/16/18at 08:38; Admin Dose 81 MG; Start 10/07/18 at 09:00 Atorvastatin Calcium (Lipitor) 40 mg QHS PO Last administered on 10/16/18 21:02; Admin Dose 40 MG; Start 10/07/18 at 21:00 Bisacodyl (Dulcolax Supp) 10 mg DAILY PRN [place] CONSTIPATION Last administered on 10/10/18 20:16; Admin Dose 10 MG; Start 10/06/18 at 22:30 Al Hydrox/Mg Hydrox/Simethicone (Mag-Al Plus) 20 ml Q6H PRN PO GASTROINTESTINAL UPSET Last administered on 10/14/18 18:29; Admin Dose 20 ML; Start 10/06/18 at 22:30 Multivitamins Therapeutic (Theragran) 1 tab DAILY PO Last administered on 10/16/18 08:38; Admin Dose 1 TAB; Start 10/07/18 at 09:00 Paroxetine HCl (Paxil) 40 mg HS PO Last administered on 10/16/18 21:02; Admin Dose 40 MG; Start 10/07/18 at 21:00 Potassium Chloride (Klor-Con 10) 10 meq BID PO Last administered on 10/16/18 21:02; Admin Dose 10 MEQ; Start 10/06/18 at 22:30 Risperidone (Risperdal) 1 mg BID PO Last administered on 10/16/18 21:02; Admin Dose 1 MG; Start 10/06/18 at 22:30 Nitroglycerin (Nitroglycerin (Sl Tab) 0.4 Mg) 1 tab Q5M PRN SL ANGINA; Start 10/06/18 at 22:30 Pantoprazole (Protonix Tab) 40 mg DAILY@06 PO Last administered on 10/17/18 05:07; Admin Dose 40 MG; Start 10/08/18 at 06:00 Eye Lubricant (Artificial Tears Oph) 2 drop Q6H PRN BOTH EYES DRY EYES Last administered on 10/09/18 08:42; Admin Dose 2 DROP; Start 10/08/18 at 13:00 Metoprolol Tartrate (Lopressor) 5 mg Q6 PRN IV HR above 130; Start 10/08/18 at 12:00 Ciprofloxacin HCl (Ciloxan 0.3% Oph) 1 drop BID LEFT EYE Last administered on 10/16/18 21:05; Admin Dose 1 DROP; Start 10/09/18 at 14:00 Metoprolol Tartrate (Lopressor) 25 mg BID PO Last administered on 10/16/18at 21:04; Admin Dose 25 MG; Start 10/10/18 at 21:00 Docusate Sodium (Colace) 100 mg DAILY PO Last administered on 10/15/18 08:29; Admin Dose 100 MG; Start 10/12/18 at 23:00 Polyethylene Glycol (Miralax) 17 gm DAILY PO Last administered on 10/15/18at 08:32; Admin Dose 17 GM; Start 10/13/18 at 09:00 Bisacodyl (Dulcolax) 10 mg DAILY PO Last administered on 10/15/18 08:29; Admin Dose 10 MG; Start 10/13/18 at 09:00 Furosemide (Lasix) 40 mg BID DIURETICS IV Last administered on 10/17/18 05:10; Admin Dose 40 MG; Start 10/13/18 at 18:00 Sildenafil Citrate (Revatio) 20 mg DAILY PO Last administered on 10/16/18at 08:38; Admin Dose 20 MG; Start 10/14/18 at 09:00 Warfarin Sodium (Coumadin) 4 mg DAILY@17 PO Last administered on 10/16/18 17:23; Admin Dose 4 MG; Start 10/14/18 at 17:00 CONNER PITTMAN MD Oct 17, 2018 07:54
[2018-10-17] MEDS: BISACODYL (EC) 5 MG TAB PO SCH (09:00)
[2018-10-17] MEDS: POLYETHYLENE GLYCOL 17 GM PACKET PO SCH (09:00)
[2018-10-17] MEDS: DOCUSATE SODIUM 100 MG CAP PO SCH (09:00)
[2018-10-17] MEDS: RISPERIDONE 1 MG TAB PO SCH ×2 (09:52→21:16)
[2018-10-17] MEDS: CIPROFLOXACIN 0.3% 2.5 ML OPH LEFT EYE SCH ×2 (09:52→21:17)
[2018-10-17] MEDS: ASPIRIN 81 MG TAB PO SCH (09:53)
[2018-10-17] MEDS: POTASSIUM CHLORIDE (SR) 10 MEQ TAB PO SCH ×2 (09:53→21:18)
[2018-10-17] MEDS: METOPROLOL 25 MG TAB PO SCH ×2 (09:53→21:16)
[2018-10-17] MEDS: MULTIVITAMINS THERAPEUTIC TAB PO SCH (09:53)
[2018-10-17] MEDS: SILDENAFIL 20 MG TAB PO SCH (09:59)
[2018-10-17] MEDS: NICOTINE (21 MG/24 HR) PATCH TRANSDERM SCH (12:44)
--- NOTE | 2018-10-17 14:50 | PDOCDIS ---
Discharge Instructions DIAGNOSIS Discharge Diagnosis CHF CONDITION [id number] Patient Condition: [id number] Fair HOME CARE INSTRUCTIONS: [id number] Diet Instructions: [id number] Low Fat /Cholesterol ACTIVITY: [id number] Activity Restrictions: [id number] Slowly Increase Activity Rest between Activity Avoid heavy lifting FOLLOW UP/APPOINTMENTS Follow-up Plan Follow follow-up with cardiology in 1-2 weeks follow with pulmonary 1-2 weeks DANA LIVINGSTON MD Oct 17, 2018 14:50
[2018-10-17] MEDS: WARFARIN 2 MG TAB PO SCH (17:20)
--- NOTE | 2018-10-17 17:39 | DS ---
DATE OF ADMISSION: 10/06/2018 DATE OF DISCHARGE: HISTORY OF PRESENT ILLNESS AND HOSPITAL COURSE: This is a 57-year-old female, morbidly obese with a past medical history of hypertension, hyperlipidemia, history of CHF, chronic AFib, depression, schiz ophrenic disorder, who was sent in from [facility] for CHF exacerbation. The patient w as having worsening lower extremity edema and leg pain during all of her stay. She was in ICU for he modynamic monitoring of diuresis. She has missed hypercapnic hypoxic respiratory failure. She was f ound to have a UTI and was on Bactrim. Patient has swelling has been getting worse and also having a bdominal wall edema. Left Doppler showed possible DVT. D-dimers are elevated. The patient was sinha sferred here due to insurance reasons. On admission, vital signs temperature 98.5, pulse rate 83, re spirations 19, blood pressure 105/57. The patient was started on IV Lasix 40 IV b.i.d. Also, was se en by pulmonary and cardiology consultation. Echo was also done that showed that her EF was 65%. Th ere was severe enlargement of right atrium, moderate to severe TR, dilated IVC without respiratory cl ass, considered elevated right atrial pressure. The patient was diuresing very well. According to t he weight, the patient had been urinating 2 to 3 liters a day. The patient came in 185 and was 156 k g, blood cultures were done that were negative. UA, urine culture was negative. The lower extremity that shows left leg veins could not be seen. The patient was feeling much better. The patient was also started on ____. Per cardiology, there is no indication of right heart [facility] Also, per pulmonary the patient can be discharged and follow up with pul monary as an outpatient. FINAL DIAGNOSES: 1. Congestive heart failure, diastolic, acute on chronic, anasarca completed by pulmonary hypertensi on. 2. Possible left lower DVT. Ultrasound very limited study; however, the patient was already on Coum russ. 3. History of paroxysmal atrial fibrillation. 4. History of hypertension. 5. History of urinary incontinence. 6. Chronic obstructive pulmonary disease. 7. Hyperlipidemia. 8. Morbid obesity. 9. Gastroesophageal reflux disease. 10. History of schizoaffective disorder. 11. Hyponatremia, resolved. 12. History of polysubstance use. 13. Urinary tract infection history. 14. Chronic kidney disease with a creatinine of 2.9 for March, now ranging in low 1. 15. History of cholecystectomy 16. History of smoking, on nicotine patch. DISCHARGE CONDITION: Stable. DISCHARGE DIET: Two-gram sodium diet. DISCHARGE MEDICATIONS: 1. Tylenol 2. Lasix 40 IV b.i.d. 3. Colace 100 b.i.d. 4. Metoprolol 25 b.i.d. 5. Multivitamin. 6. Nicotine patch. 7. Nitroglycerin. 8. Zofran. 9. Coumadin 4 mg as INR is 2. 10. Protonix 40. 11. Paroxetine 20. 12. KCl 10 b.i.d. 13. Risperidone 1 mg b.i.d. 14. Sildenafil 20 daily. The patient was instructed to follow up with cardiology in 1 to 2 weeks and pulmonology in 1 to 2 [place]. Dictated By: DANA ANDREWS/PRADEEP Conf#: [id number] DID#: [id number] CC: DRU SULLIVAN MD;*EndCC*
[2018-10-17] MEDS: ATORVASTATIN 40 MG TAB PO SCH (21:16)
[2018-10-17] MEDS: PAROXETINE 20 MG TAB PO SCH (21:17)
== END 2018-10-17 21:37 | DRG 291 ==
LOC: TEL 18:33
PROVIDERS: ADMIT Internal Medicine Nephrology; ATTEND Internal Medicine Nephrology
PROC: 4A133R1 Monitoring of Arterial Saturation, Peripheral, Percutaneous Approach (ICD-10-PCS; principal; 2018-10-08)
DX: I13.0 Hypertensive heart and chronic kidney disease with heart failure and stage 1 through stage 4 chronic kidney disease, or unspecified chronic kidney disease (principal); J96.92 Respiratory failure, unspecified with hypercapnia; J96.91 Respiratory failure, unspecified with hypoxia; I50.33 Acute on chronic diastolic (congestive) heart failure; N17.9 Acute kidney failure, unspecified; I47.1 Supraventricular tachycardia; N39.0 Urinary tract infection, site not specified; Z68.43 Body mass index [BMI] 50.0-59.9, adult; E87.1 Hypo-osmolality and hyponatremia; I82.402 Acute embolism and thrombosis of unspecified deep veins of left lower extremity; I27.24 Chronic thromboembolic pulmonary hypertension; Z71.3 Dietary counseling and surveillance; I50.810 Right heart failure, unspecified; N18.9 Chronic kidney disease, unspecified; I48.0 Paroxysmal atrial fibrillation; J44.9 Chronic obstructive pulmonary disease, unspecified; E78.5 Hyperlipidemia, unspecified; E66.01 Morbid (severe) obesity due to excess calories; K21.9 Gastro-esophageal reflux disease without esophagitis; D69.6 Thrombocytopenia, unspecified; I48.2 Chronic atrial fibrillation; F19.10 Other psychoactive substance abuse, uncomplicated; G47.33 Obstructive sleep apnea (adult) (pediatric); F25.9 Schizoaffective disorder, unspecified; F17.290 Nicotine dependence, other tobacco product, uncomplicated; Z79.01 Long term (current) use of anticoagulants; Z90.49 Acquired absence of other specified parts of digestive tract
CPT/HCPCS: 36600; 71045; 80048; 80053; 81001; 82803; 83735; 83880; 84100; 85025; 85610; 87040; 87081; 87086; 93005; 93306; 93970; 94660; 97162; 97530; C9113; J1120; J1940; J2405; J3475